=== PATIENT | female | born 1945 | race Caucasian/White ===

== ENCOUNTER 2018-08-21 07:15 | Day surgery (SDC) | payer MEDICARE, BC ==
[~2018-08-21 07:15] MED LIST: Lactated Ringers 1,000 ML IV SCH; Lidocaine 1% PF 2 ML SDV ONE; Lidocaine 1%/Sod Bicarbonate in NS 8.4% 1 ML Syringe IDERM PRN; Midazolam 1 MG/ML 2 ML SDV ONE; Ondansetron 4 MG/2 ML SDV ONE; Propofol 200 MG/20 ML SDV ONE; Sodium Chloride 0.9% 10 ML Syringe FLUSH PRN; ceFAZolin 1 GM Vial ONE; fentaNYL 100 MCG/2 ML SDV ONE
[2018-08-21] MEDS ORDERED: Bupivacaine 0.25% 30 ML SDV ONE (07:52)
[2018-08-21] MEDS ORDERED: Lidocaine 1% 30 ML SDV ONE (07:52)
--- NOTE | 2018-08-21 08:12 | PCM.PREANE ---
Preanesthetic Assessment - Anesthesia/Transfusion/Family Hx Anesthesia History: Prior Anesthesia Without Reaction Family History of Anesthesia Reaction: No Transfusion History: Prior Transfusion Without Reaction Intubation History: Unknown - Review of Systems General: No Symptoms, Fatigue Pulmonary: No Symptoms (COPD/quit smoking in 2007, ETOH: rarely) Cardiovascular: No Symptoms (HTN, CAD), Dyspnea on Exertion, Edema Gastrointestinal: No Symptoms Neurological: Numbness (Diabetic neuropathy: bilateral feet and bilateral hands) Other: Reports: Diabetes (AM blood sugar 107 taken at home.), Thyroid Problems ( Hypothyroid) - Physical Assessment NPO Status Date: 08/20/18 NPO Status Time: 17:00 Pulse: 50 O2 Sat by Pulse Oximetry: 97 Respiratory Rate: 16 Blood Pressure: 120/58 Temperature: 36.4 C Height: 1.55 m Weight: 78.471 kg ASA Class: 3 Mental Status: Alert & Oriented x3 Airway Class: Mallampati = 2 Dentition: Reports: Normal Dentition, Missing Tooth/Teeth, Caries Thyro-Mental Finger Breadths: 3 Mouth Opening Finger Breadths: 3 ROM/Head Extension: Full Lungs: Clear to Auscultation, Normal Respiratory Effort, Decreased Breath Sounds Cardiovascular: Regular Rate, Regular Rhythm, No Murmurs - Lab Values: Laboratory Last Values MRSA (PCR) Negative 08/15/18 15:15 All labs reviewed and noted and within acceptable ranges to proceed with scheduled procedure. - Imaging/EKG Impressions: EKG: SB rate=49 - Allergies Allergies/Adverse Reactions: Allergies Allergy/AdvReac Type Severity Reaction Status Date / Time No Known Allergies Allergy Verified 08/18/18 13:18 - Anesthesia Plan Pre-Op Medication Ordered: Beta Pura Beta Pura: Metoprolol Med Last Dose Date: 08/21/18 Med Last Dose Time: 06:45 - Acknowledgements Anesthesia Type Planned: MAC Pt an Appropriate Candidate for the Planned Anesthesia: Yes Alternatives and Risks of Anesthesia Discussed w Pt/Guardian: Yes Pt/Guardian Understands and Agrees with Anesthesia Plan: Yes PreAnesthesia Questionnaire HEENT History: Reports: Impaired Vision Cardiovascular History: Reports: CAD, High Cholesterol, Hypertension Respiratory History: Reports: COPD Gastrointestinal History: Reports: Chronic Constipation, Colon Polyp, Other ( See Below) Other Gastrointestinal History: colitis, colon wall thickening Genitourinary History: Reports: None 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 Neurological History: Reports: Neuropathy, Diabetic Psychiatric History: Reports: None Endocrine/Metabolic History: Reports: Diabetes, Type II, Hypothyroidism Hematologic History: Reports: None Immunologic History: Reports: None Oncologic (Cancer) History: Reports: None Dermatologic History: Reports: Other (See Below) Other Dermatologic History: edema, right foot ulcer - Past Surgical History Head Surgeries/Procedures: Reports: None HEENT Surgical History: Reports: Cataract Surgery Cardiovascular Surgical History: Reports: None Respiratory Surgical History: Reports: None GI Surgical History: Reports: Colonoscopy, Hernia Repair/Other Female Surgical History: Reports: Hysterectomy Male Surgical History: Reports: None Endocrine Surgical History: Reports: None Neurological Surgical History: Reports: None Musculoskeletal Surgical History: Reports: Other (See Below) Other Musculoskeletal Surgeries/Procedures:: right carpal tunnel syndrome, bilateral hip and knee replacements Oncologic Surgical History: Reports: None - SUBSTANCE USE Smoking Status *Q: Former Smoker Recreational Drug Use History: No - HOME MEDS Home Medications: Home Meds Ascorbic Acid [Vitamin C] 1,000 mg PO DAILY 02/04/14 [History] Irbesartan [Avapro] 300 mg PO DAILY 02/04/14 [History] Levothyroxine Sodium [Synthroid] 75 mcg PO DAILY 02/04/14 [History] Metoprolol Tartrate 100 mg PO BID 02/04/14 [History] atorvaSTATin Calcium [Atorvastatin Calcium] 20 mg PO DAILY 02/04/14 [History] hydroCHLOROthiazide [Hydrochlorothiazide] 12.5 mg PO DAILY 02/04/14 [History] Albuterol Sulfate [Proair Hfa] 2 puff INH Q6H 08/18/18 [History] Cholecalciferol (Vitamin D3) [Vitamin D3] 400 unit PO DAILY 08/18/18 [History] Gabapentin [Neurontin] 400 mg PO TID 08/18/18 [History] Irbesartan 08/18/18 [History] Multivitamin [Zoo Chews] 1 tab PO DAILY 08/18/18 [History] Umeclidinium Brm/Vilanterol Tr [Anoro Ellipta 62.5-25 MCG] 1 puff INH DAILY [History] metFORMIN [Glucophage XR] 500 mg PO BID 08/18/18 [History] Acetaminophen/HYDROcodone [[place] 325-5 MG] 1 - 2 tab PO Q6H PRN #15 tablet 08/21 [Rx] - CURRENT (IN HOUSE) MEDS Current Meds: Current Medications Lactated Ringer's (Ringers, Lactated) 1,000 mls @ 125 mls/hr IV ASDIRECTED JANET Stop: 08/21/18 23:00 Lidocaine/Sodium Bicarbonate (Buffered Lidocaine 1% In Ns 8.4%) 0.25 ml IDERM ONETIME PRN PRN Reason: Prior to IV Start Stop: 08/21/18 18:00 Sodium Chloride (Saline Flush) 10 ml FLUSH ASDIRECTED PRN PRN Reason: Keep Vein Open Stop: 08/21/18 18:00 Discontinued Medications Bupivacaine HCl (Marcaine 0.25%) Confirm Administered Dose 30 ml .ROUTE .STK- MED ONE Stop: 08/21/18 07:53 Cefazolin Sodium (Ancef) Confirm Administered Dose 2 gm .ROUTE .STK-MED ONE Stop: 08/21/18 06:42 Fentanyl (Sublimaze) Confirm Administered Dose 100 mcg .ROUTE .STK-MED ONE Stop: 08/21/18 06:42 Lidocaine HCl (Xylocaine-Mpf 1%) Confirm Administered Dose 6 ml .ROUTE .STK-MED ONE Stop: 08/21/18 06:42 Lidocaine HCl (Xylocaine-Mpf 1%) Confirm Administered Dose 30 ml .ROUTE .STK- MED ONE Stop: 08/21/18 07:53 Midazolam HCl (Versed 1 Mg/Ml) Confirm Administered Dose 2 mg .ROUTE .STK-MED ONE Stop: 08/21/18 06:43 Ondansetron HCl (Zofran) Confirm Administered Dose 4 mg .ROUTE .STK-MED ONE Stop: 08/21/18 06:42 Propofol (Diprivan 20 Ml) Confirm Administered Dose 200 mg .ROUTE .STK-MED ONE Stop: 08/21/18 06:42
[2018-08-21] MEDS ORDERED: HYDROmorphone 0.5 MG/0.5 ML Syringe IVPUSH PRN (10:29)
--- NOTE | 2018-08-21 11:15 | PCM48HPAN ---
Post Anesthesia Note - EVALUATION WITHIN 48HRS OF ANESTHETIC Vital Signs in Normal Range: Yes Patient Participated in Evaluation: Yes Respiratory Function Stable: Yes Airway Patent: Yes Cardiovascular Function Stable: Yes Hydration Status Stable: Yes Pain Control Satisfactory: Yes Nausea and Vomiting Control Satisfactory: Yes Mental Status Recovered: Yes Pulse Rate: 46 SaO2: 100 Resp Rate: 10 Temperature: 36.7 C Blood Pressure: 110/59 Pulse Rate: 46
--- NOTE | 2018-08-22 10:38 | PCM.OPNOTE ---
- General Post-Op/Procedure Note Date of Surgery/Procedure: 08/21/18 Operative Procedure(s): right carpal tunnel release with right second, third and fourth a1 yadira releases Pre Op Diagnosis: right median nerve compression and right second, third and fourth stenosing tenosynovitis Post-Op Diagnosis: Same Anesthesia Technique: Local, MAC Primary Surgeon: Chapito Yousif Anesthesia Provider: Margarita Pérez EBL in mLs: 5 Complications: None Condition: Good
--- NOTE | 2018-08-25 12:14 | OR ---
DATE OF OPERATION: 08/21/2018 SURGEON: Chapito Yousif MD OPERATION PERFORMED: Right carpal tunnel release with right 2nd, 3rd, and 4th A1 yadira releases. 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 ANESTHESIA TECHNIQUE: Local MAC. BRAIDING MACHINE TENDER: None. ANESTHESIA PROVIDER: Margarita Pérez CRNA. ESTIMATED BLOOD LOSS: Less than 5 mL. COMPLICATIONS: None. CONDITION: Stable. DESCRIPTION OF PROCEDURE: The patient was identified in the preop holding area. Proper site was marked and identified by the surgeon. The patient was taken back to the operative theater, where after adequate anesthesia, the patient's right upper extremity was sterilely prepped and draped in usual sterile fashion. OR time-out was performed. The patient received 2 g IV Ancef. At this time, right upper extremity was exsanguinated with an Esmarch and Esmarch was used as a tourniquet on the forearm. At this time, incisional sites were marked out for the carpal tunnel as well as the 2nd, 3rd, and 4th A1 yadira releases, and 1% lidocaine without epinephrine and 0.25% Marcaine without epinephrine were used to anesthetize these incisional sites. Once this was set up, the carpal tunnel was done first, incision was made. This was taken down to palmar cutaneous fascia. Palmar cutaneous fascia was identified and Chinik blade was used to resect the palmar cutaneous fascia. Transverse carpal ligament was identified. A small rent was made in the transverse carpal ligament, and then a tenotomy scissor was used for release of the transverse carpal ligament all the way distally making sure to stop short of palmar arch. At this time, the superficial forearm fascia as well as the transverse carpal ligament was then resected proximally making sure to keep the tips ulnar to protect the palmar cutaneous branch of the median nerve. There was found to be adequate release both proximally and distally at this time starting with the index finger. Incision was made over the A1 yadira. Blunt dissection was taken down to the A1 yadira. Ragnell retractors were then placed on both the radial and ulnar side to protect the neurovascular bundles, and a Chinik blade was then used to resect the A1 yadira. The tendon showed no signs of tenderness or adhesions. At this time, this was then repeated for the 3rd and 4th fingers as well in the similar fashion, and the A1 pulleys were found to be completely released for those fingers as well. None of the tendon show any adhesions. At this time, adequate saline was irrigated through all 4 incisional sites, a 4-0 nylon was used for closure of the skin. The patient was placed in a sterile soft dressing and sent to the PACU in stable condition. ANESTHESIA: MMODAL /[id number]
== END 2018-08-21 11:52 ==
LOC: JD.SDS 07:15
PROVIDERS: ATTEND Orthopaedic Surgery
DX: G56.01 Carpal tunnel syndrome, right upper limb (principal); M65.841 Other synovitis and tenosynovitis, right hand; M65.321 Trigger finger, right index finger; M65.331 Trigger finger, right middle finger; M65.341 Trigger finger, right ring finger; I10 Essential (primary) hypertension; E11.42 Type 2 diabetes mellitus with diabetic polyneuropathy; E11.621 Type 2 diabetes mellitus with foot ulcer; L97.509 Non-pressure chronic ulcer of other part of unspecified foot with unspecified severity; J44.9 Chronic obstructive pulmonary disease, unspecified; E03.9 Hypothyroidism, unspecified; E78.00 Pure hypercholesterolemia, unspecified; M19.90 Unspecified osteoarthritis, unspecified site; Z87.891 Personal history of nicotine dependence; Z79.82 Long term (current) use of aspirin; Z79.84 Long term (current) use of oral hypoglycemic drugs; Z79.899 Other long term (current) drug therapy; Z79.890 Hormone replacement therapy
CPT/HCPCS: 26055; 36415; 64721; 80048; 87641; J0690; J2001; J2405; J2704; J3010; J3490; J7120; 01810; J2250

== ENCOUNTER 2019-11-14 06:03 | Inpatient (IN) | payer MEDICARE, BC ==
[2019-11-14] MEDS ORDERED: Pantoprazole 40 MG Vial IVPUSH ONE (06:51)
--- NOTE | 2019-11-14 07:04 | EDM.PDOC ---
<[place],[employer] - Last Filed: 11/14/19 07:02> ED HPI GENERAL MEDICAL PROBLEM - General Chief Complaint: Gastrointestinal Problem Stated Complaint: BLACK STOOL/DIARRHEA Time Seen by Provider: 11/14/19 06:07 Source of Information: Reports: Patient History Limitations: Reports: No Limitations - History of Present Illness INITIAL COMMENTS - FREE TEXT/NARRATIVE: TRIAGE NOTE -- During the night pt developed black, tarry stools and diarrhea. Denies n/v and abd pain. Does not take any anticoagulants. Dizzy upon standing and SOB. [ End ] Above there is no history of GI bleeding. Onset within the past several hours with melanotic stools. She has not had any symptom of acute medical illness otherwise. No cough no fever no dysuria. No readily identified risk factors. Patient has not taken any medication or tried any other measure to moderate her symptoms. She was on a blood thinner in the past but has not taken 1 in months if not years. - Related Data Allergies Allergy/AdvReac Type Severity Reaction Status Date / Time No Known Allergies Allergy Verified 11/14/19 06:16 Home Meds: Home Meds Ascorbic Acid [Vitamin C] 1,000 mg PO DAILY 02/04/14 [History] Irbesartan [Avapro] 300 mg PO DAILY 02/04/14 [History] Levothyroxine Sodium [Synthroid] 75 mcg PO DAILY 02/04/14 [History] Metoprolol Tartrate 100 mg PO BID 02/04/14 [History] atorvaSTATin Calcium [Atorvastatin Calcium] 20 mg PO DAILY 02/04/14 [History] hydroCHLOROthiazide [Hydrochlorothiazide] 12.5 mg PO DAILY 02/04/14 [History] Albuterol Sulfate [Proair Hfa] 2 puff INH Q6H 08/18/18 [History] Cholecalciferol (Vitamin D3) [Vitamin D3] 400 unit PO DAILY 08/18/18 [History] Gabapentin [Neurontin] 400 mg PO TID 08/18/18 [History] Multivitamin [Zoo Chews] 1 tab PO DAILY 08/18/18 [History] Umeclidinium Brm/Vilanterol Tr [Anoro Ellipta 62.5-25 MCG] 1 puff INH DAILY [History] metFORMIN [Glucophage XR] 500 mg PO BID 08/18/18 [History] amLODIPine [Norvasc] 5 mg PO BID 11/14/19 [History] traMADol [Ultram] 50 mg PO TID 11/14/19 [History] Past Medical History HEENT History: Reports: Impaired Vision Cardiovascular History: Reports: CAD, High Cholesterol, Hypertension Respiratory History: Reports: COPD Gastrointestinal History: Reports: Chronic Constipation, Colon Polyp, Other ( See Below) Other Gastrointestinal History: colitis, colon wall thickening Genitourinary History: Reports: None SKID MAN History: Reports: None Neurological History: Reports: Neuropathy, Diabetic Psychiatric History: Reports: None Endocrine/Metabolic History: Reports: Diabetes, Type II, Hypothyroidism Hematologic History: Reports: None Immunologic History: Reports: None Oncologic (Cancer) History: Reports: None Dermatologic History: Reports: Other (See Below) Other Dermatologic History: edema, right foot ulcer - Past Surgical History Head Surgeries/Procedures: Reports: None HEENT Surgical History: Reports: Cataract Surgery Cardiovascular Surgical History: Reports: None Respiratory Surgical History: Reports: None GI Surgical History: Reports: Colonoscopy, Hernia Repair/Other Female Surgical History: Reports: Hysterectomy Endocrine Surgical History: Reports: None Neurological Surgical History: Reports: None Musculoskeletal Surgical History: Reports: Other (See Below) Other Musculoskeletal Surgeries/Procedures:: right carpal tunnel syndrome, bilateral hip and knee replacements Oncologic Surgical History: Reports: None Social & Family History - Tobacco Use Smoking Status *Q: Former Smoker Used Tobacco, but Quit: Yes Month/Year Tobacco Last Used: 2007 - Caffeine Use Caffeine Use: Reports: Coffee - Recreational Drug Use Recreational Drug Use: No ED ROS GENERAL - Review of Systems Review Of Systems: Comprehensive ROS is negative, except as noted in HPI. ED EXAM, GI/ABD - Physical Exam Exam: See Below Exam Limited By: No Limitations General Appearance: Alert, WD/WN, No Apparent Distress Eyes: Bilateral: EOMI Ears: Normal External Exam Nose: Normal Inspection Throat/Mouth: Normal Inspection Head: Atraumatic, Normocephalic Neck: Normal Inspection, Supple Respiratory/Chest: No Respiratory Distress, Lungs Clear, Normal Breath Sounds Cardiovascular: Regular Rate, Rhythm GI/Abdominal Exam: Soft, Non-Tender Rectal (Female) Exam: Heme + Stool Back Exam: Normal Inspection Extremities: Normal Inspection, Non-Tender Neurological: Alert, Oriented, Normal Cognition, No Motor/Sensory Deficits Psychiatric: Normal Affect, Normal Mood Skin Exam: Warm, Dry Course - Vital Signs Last Recorded V/S: Last Vital Signs Temp 36.1 C 11/14/19 06:13 Pulse 89 11/14/19 06:13 Resp 18 11/14/19 06:13 BP 122/73 11/14/19 06:13 Pulse Ox 99 11/14/19 06:13 Orthostatic Blood Pressure [ 100/80 Standing] Orthostatic Blood Pressure [ 103/63 Sitting] Orthostatic Blood Pressure [ 130/60 Supine] - Orders/Labs/Meds Orders: Active Orders 24 hr Category Date Time Status Admission Status [Patient Status] [ADT] Routine ADT 11/14/19 10:01 Ordered EKG Documentation Completion [RC] STAT Care 11/14/19 08:36 Active Hemoccult [Fecal Occult Blood Collection] [RC] Care 11/14/19 06:37 Active ASDIRECTED Orthostatic Vital Signs [RC] ASDIRECTED Care 11/14/19 07:55 Active CULTURE BLOOD [BC] Stat Lab 11/14/19 07:17 Received CULTURE BLOOD [BC] Stat Lab 11/14/19 07:23 Received CULTURE STOOL + SHIGATOX [RM] Stat Lab 11/14/19 07:53 Ordered OCCULT BLOOD DIAGNOSTIC [OP] Stat Lab 11/14/19 06:37 Ordered PATIENT RETYPE [BBK] Routine Lab 11/14/19 08:11 Ordered UA RFX GRACIELA AND CULT IF INDIC [URIN] Stat Lab 11/14/19 07:00 Ordered WBC, STOOL [OP] Stat Lab 11/14/19 07:53 Ordered Pantoprazole [ProTONIX IV] 80 mg Med 11/14/19 08:30 Active Sodium Chloride 0.9% [Normal Saline] 100 ml IV Q10H Sodium Chloride 0.9% [Normal Saline] 1,000 ml Med 11/14/19 08:30 Active IV ASDIRECTED Blood Culture x2 Reflex Set [OM.PC] Stat Oth 11/14/19 07:00 Ordered Medication Orders Pantoprazole Sodium 80 mg/ (Sodium Chloride) 100 mls @ 10 mls/hr IV Q10H JANET Last Admin: 11/14/19 08:56 Dose: 10 mls/hr Sodium Chloride (Normal Saline) 1,000 mls @ 150 mls/hr IV ASDIRECTED JANET Last Admin: 11/14/19 08:55 Dose: 150 mls/hr Labs: Laboratory Tests 11/14/19 11/14/19 11/14/19 Range/Units 06:30 06:30 06:30 WBC 21.08 H (3.98-10.04) K/mm3 RBC 3.60 L (3.98-5.22) M/mm3 Hgb 10.5 L D (11.2-15.7) gm/dl Hct 31.8 L (34.1-44.9) % MCV 88.3 (79.4-94.8) fl MCH 29.2 (25.6-32.2) pg MCHC 33.0 (32.2-35.5) g/dl RDW Std Deviation 41.1 (36.4-46.3) fL Plt Count 378 H D (182-369) K/mm3 MPV 10.7 (9.4-12.3) fl Neutrophils % (Manual) 83 H (40-60) % Band Neutrophils % 0 (0-10) % Lymphocytes % (Manual) 13 L (20-40) % Atypical Lymphs % 0 % Monocytes % (Manual) 4 (2-10) % Eosinophils % (Manual) 0 L (0.7-5.8) % Basophils % (Manual) 0 L (0.1-1.2) Platelet Estimate Adequate RBC Morph Comment Normal PT 11.1 (9.7-12.0) SECONDS INR 1.02 APTT 21 L (22-31) SECONDS Sodium 137 (136-145) mEq/L Potassium 4.2 (3.5-5.1) mEq/L Chloride 101 (98-107) mEq/L Carbon Dioxide 21 (21-32) mEq/L Anion Gap 19.2 H (5-15) BUN 74 H D (7-18) mg/dL Creatinine 1.3 H (0.55-1.02) mg/dL Est Cr Clr Drug Dosing 28.21 mL/min Estimated GFR (MDRD) 40 (>60) mL/min BUN/Creatinine Ratio 56.9 H (14-18) Glucose 198 H (83-115) mg/dL Calcium 9.7 (8.5-10.1) mg/dL Magnesium (1.8-2.4) mg/dl Total Bilirubin 0.6 (0.2-1.0) mg/dL AST 15 (15-37) U/L ALT 27 (14-59) U/L Alkaline Phosphatase 45 L (46-116) U/L NT-Pro-B Natriuret Pep (0-450) pg/mL Total Protein 6.7 (6.4-8.2) g/dl Albumin 3.6 (3.4-5.0) g/dl Globulin 3.1 gm/dL Albumin/Globulin Ratio 1.2 (1-2) TSH 3rd Generation (0.358-3.74) uIU/mL Ketones (0.0-0.3) mM Blood Type Gel Antibody Screen 11/14/19 11/14/19 11/14/19 Range/Units 06:30 06:30 06:30 WBC (3.98-10.04) K/mm3 RBC (3.98-5.22) M/mm3 Hgb (11.2-15.7) gm/dl Hct (34.1-44.9) % MCV (79.4-94.8) fl MCH (25.6-32.2) pg MCHC (32.2-35.5) g/dl RDW Std Deviation (36.4-46.3) fL Plt Count (182-369) K/mm3 MPV (9.4-12.3) fl Neutrophils % (Manual) (40-60) % Band Neutrophils % (0-10) % Lymphocytes % (Manual) (20-40) % Atypical Lymphs % % Monocytes % (Manual) (2-10) % Eosinophils % (Manual) (0.7-5.8) % Basophils % (Manual) (0.1-1.2) Platelet Estimate RBC Morph Comment PT (9.7-12.0) SECONDS INR APTT (22-31) SECONDS Sodium (136-145) mEq/L Potassium (3.5-5.1) mEq/L Chloride (98-107) mEq/L Carbon Dioxide (21-32) mEq/L Anion Gap (5-15) BUN (7-18) mg/dL Creatinine (0.55-1.02) mg/dL Est Cr Clr Drug Dosing mL/min Estimated GFR (MDRD) (>60) mL/min BUN/Creatinine Ratio (14-18) Glucose (83-115) mg/dL Calcium (8.5-10.1) mg/dL Magnesium 1.7 L (1.8-2.4) mg/dl Total Bilirubin (0.2-1.0) mg/dL AST (15-37) U/L ALT (14-59) U/L Alkaline Phosphatase (46-116) U/L NT-Pro-B Natriuret Pep (0-450) pg/mL Total Protein (6.4-8.2) g/dl Albumin (3.4-5.0) g/dl Globulin gm/dL Albumin/Globulin Ratio (1-2) TSH 3rd Generation 0.644 (0.358-3.74) uIU/mL Ketones (0.0-0.3) mM Blood Type O POSITIVE Gel Antibody Screen Negative 11/14/19 11/14/19 Range/Units 06:30 06:30 WBC (3.98-10.04) K/mm3 RBC (3.98-5.22) M/mm3 Hgb (11.2-15.7) gm/dl Hct (34.1-44.9) % MCV (79.4-94.8) fl MCH (25.6-32.2) pg MCHC (32.2-35.5) g/dl RDW Std Deviation (36.4-46.3) fL Plt Count (182-369) K/mm3 MPV (9.4-12.3) fl Neutrophils % (Manual) (40-60) % Band Neutrophils % (0-10) % Lymphocytes % (Manual) (20-40) % Atypical Lymphs % % Monocytes % (Manual) (2-10) % Eosinophils % (Manual) (0.7-5.8) % Basophils % (Manual) (0.1-1.2) Platelet Estimate RBC Morph Comment PT (9.7-12.0) SECONDS INR APTT (22-31) SECONDS Sodium (136-145) mEq/L Potassium (3.5-5.1) mEq/L Chloride (98-107) mEq/L Carbon Dioxide (21-32) mEq/L Anion Gap (5-15) BUN (7-18) mg/dL Creatinine (0.55-1.02) mg/dL Est Cr Clr Drug Dosing mL/min Estimated GFR (MDRD) (>60) mL/min BUN/Creatinine Ratio (14-18) Glucose (83-115) mg/dL Calcium (8.5-10.1) mg/dL Magnesium (1.8-2.4) mg/dl Total Bilirubin (0.2-1.0) mg/dL AST (15-37) U/L ALT (14-59) U/L Alkaline Phosphatase (46-116) U/L NT-Pro-B Natriuret Pep 549 H (0-450) pg/mL Total Protein (6.4-8.2) g/dl Albumin (3.4-5.0) g/dl Globulin gm/dL Albumin/Globulin Ratio (1-2) TSH 3rd Generation (0.358-3.74) uIU/mL Ketones 0.73 (0.0-0.3) mM Blood Type Gel Antibody Screen Meds: Medications Generic Name Dose Route Start Last Admin Trade Name Freq PRN Reason Stop Dose Admin Pantoprazole Sodium 80 mg/ 100 mls @ 10 mls/hr 11/14/19 08:30 11/14/19 08:56 Sodium Chloride IV 10 mls/hr Q10H JANET Administration Sodium Chloride 1,000 mls @ 150 mls/hr 11/14/19 08:30 11/14/19 08:55 Normal Saline IV 150 mls/hr ASDIRECTED JANET Administration Discontinued Medications Generic Name Dose Route Start Last Admin Trade Name Freq PRN Reason Stop Dose Admin Pantoprazole Sodium 80 mg 11/14/19 06:51 11/14/19 07:00 Protonix Iv IVPUSH 11/14/19 06:52 80 mg BOLUS ONE Administration Departure - Departure Disposition: Admitted As Inpatient 65 Clinical Impression: Gastrointestinal hemorrhage Qualifiers: GI bleed type/associated pathology: unspecified gastrointestinal hemorrhage type Qualified Code(s): K92.2 - Gastrointestinal hemorrhage, unspecified Congestive heart failure Qualifiers: Heart failure type: diastolic Heart failure chronicity: acute on chronic Qualified Code(s): I50.33 - Acute on chronic diastolic (congestive) heart failure - Discharge Information Referrals: Nasim Melton MD [Primary Care Provider] - Forms: ED Department Discharge Sepsis Event Note (ED) - Evaluation Sepsis Screening Result: No Definite Risk - Focused Exam Vital Signs: Vital Signs Temp Pulse Resp BP Pulse Ox 11/14/19 06:13 36.1 C 89 18 122/73 99 - My Orders Last 24 Hours: My Active Orders 11/14/19 07:53 CULTURE STOOL + SHIGATOX [RM] Stat WBC, STOOL [OP] Stat 11/14/19 07:55 Orthostatic Vital Signs [RC] ASDIRECTED 11/14/19 08:30 Pantoprazole [ProTONIX IV] 80 mg Sodium Chloride 0.9% [Normal Saline] 100 ml IV Q10H Sodium Chloride 0.9% [Normal Saline] 1,000 ml IV ASDIRECTED 11/14/19 08:36 EKG Documentation Completion [RC] STAT 11/14/19 10:01 Admission Status [Patient Status] [ADT] Routine - Assessment/Plan Last 24 Hours: My Active Orders 11/14/19 07:53 CULTURE STOOL + SHIGATOX [RM] Stat WBC, STOOL [OP] Stat 11/14/19 07:55 Orthostatic Vital Signs [RC] ASDIRECTED 11/14/19 08:30 Pantoprazole [ProTONIX IV] 80 mg Sodium Chloride 0.9% [Normal Saline] 100 ml IV Q10H Sodium Chloride 0.9% [Normal Saline] 1,000 ml IV ASDIRECTED 11/14/19 08:36 EKG Documentation Completion [RC] STAT 11/14/19 10:01 Admission Status [Patient Status] [ADT] Routine <Dominic Ramsey - Last Filed: 11/14/19 10:03> ED HPI GENERAL MEDICAL PROBLEM - History of Present Illness Onset: Today Duration: Hour(s):, Waxing/Waning Location: Reports: Abdomen Quality: Reports: Ache Severity: Moderate Improves with: Reports: None Worsens with: Reports: None Context: Denies: Activity, Exercise, Lifting, Sick Contact, Trauma, Other Associated Symptoms: Reports: Malaise, Other. 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 Her hips are good.) Endocrine/Metabolic History: Reports: Diabetes, Type II Social & Family History - Living Situation & Occupation Living situation: Reports: Occupation: Retired ED ROS GENERAL - Review of Systems Constitutional: Reports: Malaise, Weakness, Fatigue. Denies: Fever, Chills HEENT: Reports: No Symptoms Respiratory: Reports: No Symptoms Cardiovascular: Reports: Blood Pressure Problem Endocrine: Reports: Fatigue GI/Abdominal: Reports: Diarrhea. Denies: Abdominal Pain, Decreased Appetite : Reports: Frequency, Incontinence Musculoskeletal: Reports: Back Pain, Joint Pain Skin: Reports: No Symptoms Neurological: Reports: Dizziness Psychiatric: Reports: No Symptoms Hematologic/Lymphatic: Reports: No Symptoms Immunologic: Reports: No Symptoms EKG INTERPRETATION EKG Date: 11/14/19 Time: 08:49 Rhythm: NSR Rate (Beats/Min): 94 [place]: Normal P-Wave: Present QRS: Other (Decreased voltage in both the limb and precordial leads. Early R wave transition V2 consider right ventricular appear to be pattern.) ST-T: Other (T wave flattening in leads I and aVL which is nonspecific.) QT: Prolonged (QTC is markedly prolonged at 533.) EKG Interpretation Comments: Abnormal ECG Course - Radiology Interpretation Free Text/Narrative:: 74-year-old female presents to the ED with a history of developing dark black tarry stools during the night. She estimates that she is gone 3-4 times. Unsure what time she woke up this morning but is after midnight the first time she had black tarry stools. She had a large blowout black tarry stool in the ED. She did feel quite lightheaded dizzy and short of breath in route to the hospital. This morning. She has no history of dyspepsia or discomfort in the epigastrium. No previous history of peptic ulcer disease. She suggest she takes 2 Aleve and a baby aspirin every morning and usually Aleve p.m. at bedtime to help sleep. Therefore her current upper GI bleed appears to be likely due to be NSAID induced. Dr. Hicks had started her on Protonix 80 mg IV bolus but no drip. She will be placed on Protonix drip at 10 mils per hour. She has no reason not to take a blood transfusion if she needs it. Clinically her blepharal margins are very pallid and I suspect her hemoglobin is going to be 9 or less. IV will be normal saline at 100 mils per hour. Current BP was 104/82. She usually states is 120/65 - Re-Assessments/Exams Free Text/Narrative Re-Assessment/Exam: 11/14/19 08:29 there was of assumed from Dr. Hicks at change of shift. I personally reviewed the patient's history with her and completed a physical examination. Labs reveal a markedly elevated white count at 21.08 which appears to be a stress response. It is unclear whether or not the patient could have occult CLL but her differential shows 83% neutrophils and no bands. Hemoglobin is low at 10.5 hematocrit is 31.8. MCV is 88.3. Platelet count 378, 000. PT is 11.1 with a INR of 1.02. PTT is 21. Sodium 137 with a potassium of 4.2. Chloride is 1 1 with a bicarb of 21. Anion gap is markedly elevated at 19.2. BUN is markedly elevated at 74 compatible with an upper GI bleed. Creatinine is 1.3 with a GFR 40 a stage III chronic kidney disease. Glucose is 198. Calcium is 9.7 with a normal liver function study. Total protein is 6.7 with an albumin fraction of 3.6. TSH is 0.644. Sent will be obtained for blood transfusion. She is going to drift downwards over the next 24 hours even if she has no further active bleeding. 11/14/19 09:[address] Richey and he is excepted care on the hospitalist service. Is asked me to discuss the case with Dr. Coombs on-call surgeon to see if he would be able to perform an EGD on her today to identify where she may be bleeding from. I have put a call into them but I believe he is in the operating at this time. 11/14/19 09:59 Ketones came back at 0.73. This is mildly elevated. BNP came back at 549. I did try to contact Dr. Coombs but I believe he is in the OR. He has not yet called me back. I will have the patient admitted to the med surgery floor in the interim and he can see her on the floor with regards to a consult for EGD. Departure - Departure Time of Disposition: 10:00 Condition: Fair - Discharge Information *PRESCRIPTION DRUG MONITORING PROGRAM REVIEWED*: Not Applicable *COPY OF PRESCRIPTION DRUG MONITORING REPORT IN PATIENT [place]: Not Applicable
[2019-11-14] MEDS ORDERED: Sodium Chloride 0.9% 1,000 ML IV SCH ×3 (08:30→21:45)
[2019-11-14] MEDS: Pantoprazole 80 MG in Sodium Chloride 0.9% 100 ML IV SCH ×2 (08:56→21:18)
[2019-11-14] MEDS ORDERED: Ondansetron 4 MG/2 ML SDV IV PRN (12:05)
[2019-11-14] MEDS ORDERED: Albuterol 0.083% 2.5 MG/3 ML Neb Soln NEB PRN (12:05)
[2019-11-14] MEDS ORDERED: 50% Dextrose in Water 50 ML Syringe IVPUSH PRN (12:11)
--- NOTE | 2019-11-14 12:11 | PCM.HP.2 ---
H&P History of Present Illness - General Date of Service: 11/14/19 Admit Problem/Dx: Admission Diagnosis/Problem Admission Diagnosis/Problem Gastrointestinal hemorrhage - History of Present Illness Initial Comments - Free Text/Narative: 34-year-old female who has a history of COPD and coronary artery disease presents to the emergency department with melanotic stools. She states that last night she vomited blood and then throughout the night and morning she had black stools. She states that this morning she filled the toilet with black stools. Patient did complain of being lightheaded and dizzy. She states in the melanite she was very short of breath. She denies any chest pain, orthopnea , PND, abdominal pain, or history of peptic ulcer disease. Patient does take 2 Aleve in the morning and 1 Aleve p.m. at night. She also takes a baby aspirin in the morning. Initial blood pressure was 122/73, but I did decrease to blood pressure of 104. Orthostatics were positive. Patient was started on IV fluids and had type and screen done. Protonix 80 mg IV push and then IV drip was started. Initial hemoglobin was 10.5, platelets 378, INR 1.02, APTT 20 weeks 1. Electrolytes were normal, but anion gap was elevated at 19.2. BUN was elevated at 74 and creatinine of 1.3 with estimated GFR of 40. Unknown what her baseline is but this looks to be close to baseline. Ketones were 0.73 and BNP was slightly elevated at 549. Patient was then transferred to the ICU. - Related Data Allergies/Adverse Reactions: Allergies Allergy/AdvReac Type Severity Reaction Status Date / Time No Known Allergies Allergy Verified 11/14/19 06:16 Home Medications: Home Meds Ascorbic Acid [Vitamin C] 1,000 mg PO DAILY 02/04/14 [History] Irbesartan [Avapro] 300 mg PO BEDTIME 02/04/14 [History] Levothyroxine Sodium [Synthroid] 75 mcg PO ACBREAKFAST 02/04/14 [History] Metoprolol Tartrate 100 mg PO BID 02/04/14 [History] atorvaSTATin Calcium [Atorvastatin Calcium] 20 mg PO BEDTIME 02/04/14 [History] hydroCHLOROthiazide [Hydrochlorothiazide] 12.5 mg PO DAILY 02/04/14 [History] Albuterol Sulfate [Proair Hfa] 2 puff INH Q6H 03/15/19 [History] Cholecalciferol (Vitamin D3) [Vitamin D3] 400 unit PO DAILY 08/18/18 [History] Gabapentin [Neurontin] 400 mg PO TID 08/18/18 [History] Multivitamin [Zoo Chews] 1 tab PO DAILY 08/18/18 [History] Umeclidinium Brm/Vilanterol Tr [Anoro Ellipta 62.5-25 MCG] 1 puff INH DAILY [History] metFORMIN [Glucophage XR] 500 mg PO BID 08/18/18 [History] amLODIPine [Norvasc] 5 mg PO BID 11/14/19 [History] traMADol [Ultram] 50 mg PO TID 11/14/19 [History] Past Medical History HEENT History: Reports: Impaired Vision Cardiovascular History: Reports: CAD, High Cholesterol, Hypertension Respiratory History: Reports: COPD Gastrointestinal History: Reports: Chronic Constipation, Colon Polyp, Other ( See Below) Other Gastrointestinal History: colitis, colon wall thickening Genitourinary History: Reports: None CAGE CLERK History: Reports: None Musculoskeletal History: Reports: Back Pain, Chronic, Neck Pain, Chronic, Osteoarthritis, Other (See Below) Neurological History: Reports: Neuropathy, Diabetic Psychiatric History: Reports: None Endocrine/Metabolic History: Reports: Diabetes, Type II, Hypothyroidism Hematologic History: Reports: None Immunologic History: Reports: None Oncologic (Cancer) History: Reports: None Dermatologic History: Reports: Other (See Below) Other Dermatologic History: edema, right foot ulcer - Past Surgical History Head Surgeries/Procedures: Reports: None HEENT Surgical History: Reports: Cataract Surgery Cardiovascular Surgical History: Reports: None Respiratory Surgical History: Reports: None GI Surgical History: Reports: Colonoscopy, Hernia Repair/Other Female Surgical History: Reports: Hysterectomy Neurological Surgical History: Reports: None Other Musculoskeletal Surgeries/Procedures:: right carpal tunnel syndrome, bilateral hip and knee replacements Oncologic Surgical History: Reports: None Social & Family History - Family History Family Medical History: Noncontributory - Tobacco Use Smoking Status *Q: Former Smoker Used Tobacco, but Quit: Yes Month/Year Tobacco Last Used: 2007 Tobacco Use Comment: 20 years of smoking hx - Caffeine Use Caffeine Use: Reports: Coffee - Recreational Drug Use Recreational Drug Use: No - Living Situation & Occupation Living situation: Reports: Occupation: Retired H&P Review of Systems - Review of Systems: Review Of Systems: Comprehensive ROS is negative, except as noted in HPI. Exam - Exam Exam: See Below - Vital Signs Vital Signs: Last Vital Signs Temp 98.1 F 11/14/19 12:07 Pulse 89 11/14/19 06:13 Resp 14 11/14/19 12:07 BP 135/60 11/14/19 12:07 Pulse Ox 100 11/14/19 12:07 Orthostatic Blood Pressure [ 100/80 Standing] Orthostatic Blood Pressure [ 103/63 Sitting] Orthostatic Blood Pressure [ 130/60 Supine] Weight: 163 lb - Exam Quality Assessment: No: Supplemental Oxygen General: Alert, Oriented, 4 HEENT: Conjunctiva Clear, Hearing Intact, Mucosa Moist & [place] Neck: Supple, Trachea Midline, 2 Lungs: Normal Respiratory Effort, Crackles (Mild bibasilar) Cardiovascular: Regular Rhythm, Normal S1, Normal S2, Tachycardia GI/Abdominal Exam: Normal Bowel Sounds, Soft, Non-Tender, No Organomegaly, No Distention, No Abnormal Bruit Back Exam: Normal Inspection Extremities: Normal Inspection, Normal Range of Motion, Non-Tender, No Pedal Edema, Normal Capillary Refill Peripheral Pulses: 2+: Popliteal (R), Posterior Tibial (L), Posterior Tibial (R) , Dorsalis Pedis (L), Dorsalis Pedis (R) Skin: Warm, Dry, Intact Neurological: Cranial Nerves Intact Neuro Extensive - Mental Status: Alert, Oriented x3, Normal Mood/Affect, Normal Cognition, Memory Intact Neuro Extensive - Motor, Sensory, Reflexes: CN II-XII Intact Psychiatric: Alert, Normal Affect, Normal Mood - Patient Data Lab Results Last 24 hrs: Laboratory Results - last 24 hr 11/14/19 11/14/19 11/14/19 Range/Units 06:30 06:30 06:30 WBC 21.08 H (3.98-10.04) K/mm3 RBC 3.60 L (3.98-5.22) M/mm3 Hgb 10.5 L D (11.2-15.7) gm/dl Hct 31.8 L (34.1-44.9) % MCV 88.3 (79.4-94.8) fl MCH 29.2 (25.6-32.2) pg MCHC 33.0 (32.2-35.5) g/dl RDW Std Deviation 41.1 (36.4-46.3) fL Plt Count 378 H D (182-369) K/mm3 MPV 10.7 (9.4-12.3) fl Neutrophils % (Manual) 83 H (40-60) % Band Neutrophils % 0 (0-10) % Lymphocytes % (Manual) 13 L (20-40) % Atypical Lymphs % 0 % Monocytes % (Manual) 4 (2-10) % Eosinophils % (Manual) 0 L (0.7-5.8) % Basophils % (Manual) 0 L (0.1-1.2) Platelet Estimate Adequate RBC Morph Comment Normal PT 11.1 (9.7-12.0) SECONDS INR 1.02 APTT 21 L (22-31) SECONDS Sodium 137 (136-145) mEq/L Potassium 4.2 (3.5-5.1) mEq/L Chloride 101 (98-107) mEq/L Carbon Dioxide 21 (21-32) mEq/L Anion Gap 19.2 H (5-15) BUN 74 H D (7-18) mg/dL Creatinine 1.3 H (0.55-1.02) mg/dL Est Cr Clr Drug Dosing 28.21 mL/min Estimated GFR (MDRD) 40 (>60) mL/min BUN/Creatinine Ratio 56.9 H (14-18) Glucose 198 H (83-115) mg/dL Calcium 9.7 (8.5-10.1) mg/dL Magnesium (1.8-2.4) mg/dl Total Bilirubin 0.6 (0.2-1.0) mg/dL AST 15 (15-37) U/L ALT 27 (14-59) U/L Alkaline Phosphatase 45 L (46-116) U/L NT-Pro-B Natriuret Pep (0-450) pg/mL Total Protein 6.7 (6.4-8.2) g/dl Albumin 3.6 (3.4-5.0) g/dl Globulin 3.1 gm/dL Albumin/Globulin Ratio 1.2 (1-2) TSH 3rd Generation (0.358-3.74) uIU/mL Ketones (0.0-0.3) mM Blood Type Gel Antibody Screen 11/14/19 11/14/19 11/14/19 Range/Units 06:30 06:30 06:30 WBC (3.98-10.04) K/mm3 RBC (3.98-5.22) M/mm3 Hgb (11.2-15.7) gm/dl Hct (34.1-44.9) % MCV (79.4-94.8) fl MCH (25.6-32.2) pg MCHC (32.2-35.5) g/dl RDW Std Deviation (36.4-46.3) fL Plt Count (182-369) K/mm3 MPV (9.4-12.3) fl Neutrophils % (Manual) (40-60) % Band Neutrophils % (0-10) % Lymphocytes % (Manual) (20-40) % Atypical Lymphs % % Monocytes % (Manual) (2-10) % Eosinophils % (Manual) (0.7-5.8) % Basophils % (Manual) (0.1-1.2) Platelet Estimate RBC Morph Comment PT (9.7-12.0) SECONDS INR APTT (22-31) SECONDS Sodium (136-145) mEq/L Potassium (3.5-5.1) mEq/L Chloride (98-107) mEq/L Carbon Dioxide (21-32) mEq/L Anion Gap (5-15) BUN (7-18) mg/dL Creatinine (0.55-1.02) mg/dL Est Cr Clr Drug Dosing mL/min Estimated GFR (MDRD) (>60) mL/min BUN/Creatinine Ratio (14-18) Glucose (83-115) mg/dL Calcium (8.5-10.1) mg/dL Magnesium 1.7 L (1.8-2.4) mg/dl Total Bilirubin (0.2-1.0) mg/dL AST (15-37) U/L ALT (14-59) U/L Alkaline Phosphatase (46-116) U/L NT-Pro-B Natriuret Pep (0-450) pg/mL Total Protein (6.4-8.2) g/dl Albumin (3.4-5.0) g/dl Globulin gm/dL Albumin/Globulin Ratio (1-2) TSH 3rd Generation 0.644 (0.358-3.74) uIU/mL Ketones (0.0-0.3) mM Blood Type O POSITIVE Gel Antibody Screen Negative 11/14/19 11/14/19 Range/Units 06:30 06:30 WBC (3.98-10.04) K/mm3 RBC (3.98-5.22) M/mm3 Hgb (11.2-15.7) gm/dl Hct (34.1-44.9) % MCV (79.4-94.8) fl MCH (25.6-32.2) pg MCHC (32.2-35.5) g/dl RDW Std Deviation (36.4-46.3) fL Plt Count (182-369) K/mm3 MPV (9.4-12.3) fl Neutrophils % (Manual) (40-60) % Band Neutrophils % (0-10) % Lymphocytes % (Manual) (20-40) % Atypical Lymphs % % Monocytes % (Manual) (2-10) % Eosinophils % (Manual) (0.7-5.8) % Basophils % (Manual) (0.1-1.2) Platelet Estimate RBC Morph Comment PT (9.7-12.0) SECONDS INR APTT (22-31) SECONDS Sodium (136-145) mEq/L Potassium (3.5-5.1) mEq/L Chloride (98-107) mEq/L Carbon Dioxide (21-32) mEq/L Anion Gap (5-15) BUN (7-18) mg/dL Creatinine (0.55-1.02) mg/dL Est Cr Clr Drug Dosing mL/min Estimated GFR (MDRD) (>60) mL/min BUN/Creatinine Ratio (14-18) Glucose (83-115) mg/dL Calcium (8.5-10.1) mg/dL Magnesium (1.8-2.4) mg/dl Total Bilirubin (0.2-1.0) mg/dL AST (15-37) U/L ALT (14-59) U/L Alkaline Phosphatase (46-116) U/L NT-Pro-B Natriuret Pep 549 H (0-450) pg/mL Total Protein (6.4-8.2) g/dl Albumin (3.4-5.0) g/dl Globulin gm/dL Albumin/Globulin Ratio (1-2) TSH 3rd Generation (0.358-3.74) uIU/mL Ketones 0.73 (0.0-0.3) mM Blood Type Gel Antibody Screen Result Diagrams: 11/14/19 12:03 11/14/19 06:30 EKG INTERPRETATION EKG Date: 11/14/19 Rate (Beats/Min): 94 [place]: Normal P-Wave: Present QRS: Other (Early transition of R wave.) ST-T: Other (Nonspecific flattening T wave in lead I and aVL) QT: Prolonged (533) Sepsis Event Note - Evaluation Sepsis Screening Result: No Definite Risk - Focused Exam Vital Signs: Vital Signs Temp Pulse Resp BP Pulse Ox 11/14/19 12:07 98.1 F 14 135/60 100 11/14/19 11:00 97.8 F 15 125/77 99 11/14/19 06:13 96.9 F 89 18 122/73 99 Date Exam was Performed: 11/14/19 Time Exam was Performed: 12:54 - Problem List (1) Prolonged Q-T interval on ECG SNOMED Code(s): 245252106 ICD Code: R94.31 - ABNORMAL ELECTROCARDIOGRAM [ECG] [EKG] Status: Acute Current Visit: Yes (2) Congestive heart failure SNOMED Code(s): 64028801 ICD Code: I50.9 - HEART FAILURE, UNSPECIFIED Status: Acute Current Visit : Yes Qualifiers: Heart failure type: diastolic Heart failure chronicity: acute on chronic Qualified Code(s): I50.33 - Acute on chronic diastolic (congestive) heart failure (3) Gastrointestinal hemorrhage SNOMED Code(s): 32128747 ICD Code: K92.2 - GASTROINTESTINAL HEMORRHAGE, UNSPECIFIED Status: Acute Current Visit: Yes Qualifiers: GI bleed type/associated pathology: unspecified gastrointestinal hemorrhage type Qualified Code(s): K92.2 - Gastrointestinal hemorrhage, unspecified Problem List Initiated/Reviewed/Updated: Yes Orders Last 24hrs: Active Orders 24 hr Category Date Time Status Admission Status [Patient Status] [ADT] Routine ADT 11/14/19 10:01 Active Antiembolic Devices [RC] PER UNIT ROUTINE Care 11/14/19 12:07 Ordered Hemoccult [Fecal Occult Blood Collection] [RC] Care 11/14/19 06:37 Active ASDIRECTED Intake and Output Strict [RC] ASDIRECTED Care 11/14/19 12:05 Ordered Notify Provider Consults [RC] ASDIRECTED Care 11/14/19 12:03 Ordered Orthostatic Vital Signs [RC] ASDIRECTED Care 11/14/19 07:55 Active Oxygen Therapy [RC] PRN Care 11/14/19 12:05 Ordered RT Aerosol Therapy [RC] ASDIRECTED Care 11/14/19 12:07 Ordered Up With Assistance [RC] ASDIRECTED Care 11/14/19 12:05 Ordered VTE/DVT Education [RC] PER UNIT ROUTINE Care 11/14/19 12:05 Ordered Vital Signs [RC] Q4H Care 11/14/19 12:05 Ordered Consult to Physician [CONS] Routine Cons 11/14/19 12:03 Ordered Nothing per Oral Now Diet [DIET] Diet 11/14/19 Lunch Ordered CBC WITH AUTO DIFF [HEME] AM Lab 11/15/19 05:11 Ordered COMPREHENSIVE METABOLIC PN,CMP [CHEM] AM Lab 11/15/19 05:11 Ordered CULTURE BLOOD [BC] Stat Lab 11/14/19 07:17 Received CULTURE BLOOD [BC] Stat Lab 11/14/19 07:23 Received CULTURE STOOL + SHIGATOX [RM] Stat Lab 11/14/19 07:53 Ordered HEMOGLOBIN/HEMATOCRIT,HH [HEME] Stat Lab 11/14/19 11:50 Ordered MAGNESIUM [CHEM] AM Lab 11/15/19 05:11 Ordered OCCULT BLOOD DIAGNOSTIC [OP] Stat Lab 11/14/19 06:37 Ordered PATIENT RETYPE [BBK] Routine Lab 11/14/19 08:11 Ordered PHOSPHORUS [CHEM] AM Lab 11/15/19 05:11 Ordered UA RFX GRACIELA AND CULT IF INDIC [URIN] Stat Lab 11/14/19 07:00 Ordered WBC, STOOL [OP] Stat Lab 11/14/19 07:53 Ordered Albuterol [Proventil Neb Soln] Med 11/14/19 12:05 Ordered 2.5 mg NEB Q2H PRN Ondansetron [Zofran] Med 11/14/19 12:05 Ordered 4 mg IV Q4H PRN Pantoprazole [ProTONIX IV] 80 mg Med 11/14/19 08:30 Active Sodium Chloride 0.9% [Normal Saline] 100 ml IV Q10H Sodium Chloride 0.9% [Normal Saline] 1,000 ml Med 11/14/19 08:30 Active IV ASDIRECTED Blood Culture x2 Reflex Set [OM.PC] Stat Oth 11/14/19 07:00 Ordered Sequential Compression Device [OM.PC] Per Unit Routine Oth 11/14/19 12:06 Ordered Resuscitation Status Routine Resus Stat 11/14/19 11:31 Ordered Medication Orders Albuterol (Proventil Neb Soln) 2.5 mg NEB Q2H PRN PRN Reason: Shortness Of Breath/wheezing Pantoprazole Sodium 80 mg/ (Sodium Chloride) 100 mls @ 10 mls/hr IV Q10H JANET Last Admin: 11/14/19 08:56 Dose: 10 mls/hr Sodium Chloride (Normal Saline) 1,000 mls @ 150 mls/hr IV ASDIRECTED JANET Last Admin: 11/14/19 08:55 Dose: 150 mls/hr Ondansetron HCl (Zofran) 4 mg IV Q4H PRN PRN Reason: Nausea/Vomiting Assessment/Plan Comment:: Gastrointestinal hemorrhage likely upper GI tract * Patient with multiple black tarry stools and at least 1 episode of hematemesis. * Patient symptomatic with dizziness and lightheadedness. * Patient was orthostatic and tachycardic with borderline low systolic blood pressure. * Initial hemoglobin 10.5 * Given Protonix 80 mg IV bolus and placed on Protonix drip in the emergency department * Type and screen in the emergency department * White blood cell count elevated at 21 likely secondary to stress reaction * Normal coagulation studies and platelets Plan * Admit to ICU * Fluid resuscitation * Follow H&H every 4-6 hours until stable * Consult Dr. Coombs in surgery * Continue Protonix drip. * N.p.o. Coronary artery disease per history * Patient is currently without chest pain. * She denies PND or orthopnea. Plan * Start supplemental FiO2 secondary to active GI bleed in a patient with coronary artery disease. COPD * On albuterol as needed and Anoro Plan * Follow patient closely on supplemental O2 secondary to her COPD * Albuterol as needed * Restart home on oral if available Type 2 diabetes * Patient on metformin 500 mg twice daily * Unsure hemoglobin A1c Plan * Sliding scale insulin * Fingerstick blood sugar 4 times daily * Get hemoglobin A1c Hypertension/hyperlipidemia * Patient is on metoprolol, hydrochlorothiazide, and amlodipine for hypertension * Atorvastatin for hyperlipidemia * Blood pressure is stable currently and borderline low secondary to GI bleed Plan * Monitor blood pressure closely * Patient is n.p.o. so will need to consider IV coverage for hypertension or tachycardia. VTE prophylaxis with SCDs. Chemoprophylaxis is contraindicated because of active GI bleed. CODE STATUS: Full code Disposition: Admit to ICU. Length of stay 2 to 3 days anticipated. - Mortality Measure Prognosis:: Good
--- NOTE | 2019-11-14 12:40 | PCM.CONS ---
H&P History of Present Illness - General Date of Service: 11/14/19 Admit Problem/Dx: Admission Diagnosis/Problem Admission Diagnosis/Problem Gastrointestinal hemorrhage Source of Information: Patient, Provider History Limitations: Reports: No Limitations - History of Present Illness Other HPI/Comments: Mrs. Calvo is a 74 yo woman who was admitted from the emergency room this morning due to symptomatic anemia with report of melena starting yesterday. The patient reports she was in her usual state of health until she had black, tarry diarrhea yesterday. At the time, when she got up to use the restroom, she developed lightheadedness and dizziness and felt as if she almost would pass out. These symptoms prompted a visit to the ER, at which time she was found to have a WBC 21,000 and Hgb 10.5 g/dL. Her vitals have been normal and she has not passed any stool since admission. She is in no distress; she denies abdominal pain or nausea, no reports of vomiting or hematemesis. She takes aleve and aspirin on a regular basis. She has no history of prior EGD. She had a colonoscopy done in [place], she says about 2 years ago, with a finding of one benign polyp. She has no prior history of GI bleed, and aside from aspirin 81 mg is not taking any anti-platelet or anticoagulation medication. - Related Data Allergies/Adverse Reactions: Allergies Allergy/AdvReac Type Severity Reaction Status Date / Time No Known Allergies Allergy Verified 11/14/19 06:16 Home Medications: Home Meds Ascorbic Acid [Vitamin C] 1,000 mg PO DAILY 02/04/14 [History] Irbesartan [Avapro] 300 mg PO BEDTIME 02/04/14 [History] Levothyroxine Sodium [Synthroid] 75 mcg PO ACBREAKFAST 02/04/14 [History] Metoprolol Tartrate 100 mg PO BID 02/04/14 [History] atorvaSTATin Calcium [Atorvastatin Calcium] 20 mg PO BEDTIME 02/04/14 [History] hydroCHLOROthiazide [Hydrochlorothiazide] 12.5 mg PO DAILY 02/04/14 [History] Albuterol Sulfate [Proair Hfa] 2 puff INH Q6H 08/18/18 [History] Cholecalciferol (Vitamin D3) [Vitamin D3] 400 unit PO DAILY 08/18/18 [History] Gabapentin [Neurontin] 400 mg PO TID 08/18/18 [History] Multivitamin [Zoo Chews] 1 tab PO DAILY 08/18/18 [History] Umeclidinium Brm/Vilanterol Tr [Anoro Ellipta 62.5-25 MCG] 1 puff INH DAILY [History] metFORMIN [Glucophage XR] 500 mg PO BID 08/18/18 [History] amLODIPine [Norvasc] 5 mg PO BID 11/14/19 [History] traMADol [Ultram] 50 mg PO TID 11/14/19 [History] Past Medical History HEENT History: Reports: Impaired Vision Cardiovascular History: Reports: CAD, High Cholesterol, Hypertension Respiratory History: Reports: COPD Gastrointestinal History: Reports: Chronic Constipation, Colon Polyp, Other ( See Below) Other Gastrointestinal History: colitis, colon wall thickening Genitourinary History: Reports: None 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 Musculoskeletal History: Reports: Back Pain, Chronic, Neck Pain, Chronic, Osteoarthritis, Other (See Below) Neurological History: Reports: Neuropathy, Diabetic Psychiatric History: Reports: None Endocrine/Metabolic History: Reports: Diabetes, Type II, Hypothyroidism Hematologic History: Reports: None Immunologic History: Reports: None Oncologic (Cancer) History: Reports: None Dermatologic History: Reports: Other (See Below) Other Dermatologic History: edema, right foot ulcer - Past Surgical History Head Surgeries/Procedures: Reports: None HEENT Surgical History: Reports: Cataract Surgery Cardiovascular Surgical History: Reports: None Respiratory Surgical History: Reports: None GI Surgical History: Reports: Colonoscopy, Hernia Repair/Other Female Surgical History: Reports: Hysterectomy Neurological Surgical History: Reports: None Other Musculoskeletal Surgeries/Procedures:: right carpal tunnel syndrome, bilateral hip and knee replacements Oncologic Surgical History: Reports: None Social & Family History - Family History Family Medical History: Noncontributory - Tobacco Use Smoking Status *Q: Former Smoker Used Tobacco, but Quit: Yes Month/Year Tobacco Last Used: 2007 Tobacco Use Comment: 20 years of smoking hx - Caffeine Use Caffeine Use: Reports: Coffee - Recreational Drug Use Recreational Drug Use: No - Living Situation & Occupation Living situation: Reports: Occupation: Retired H&P Review of Systems - Review of Systems: Review Of Systems: See Below General: Reports: Chills, Weakness, Fatigue HEENT: Reports: No Symptoms Pulmonary: Reports: No Symptoms Cardiovascular: Reports: Lightheadedness Gastrointestinal: Reports: Black Stool, Diarrhea, Melena Genitourinary: Reports: No Symptoms Musculoskeletal: Reports: No Symptoms Skin: Reports: Pallor Psychiatric: Reports: No Symptoms Neurological: Reports: No Symptoms Hematologic/Lymphatic: Reports: Anemia Exam - Exam Exam: See Below - Vital Signs Vital Signs: Last Vital Signs Temp 36.7 C 11/14/19 12:07 Pulse 89 11/14/19 06:13 Resp 14 11/14/19 12:07 BP 135/60 11/14/19 12:07 Pulse Ox 100 11/14/19 12:07 Orthostatic Blood Pressure [ 100/80 Standing] Orthostatic Blood Pressure [ 103/63 Sitting] Orthostatic Blood Pressure [ 130/60 Supine] Weight: 73.936 kg - Exam General: Alert, Oriented, Cooperative HEENT: Conjunctiva Clear Neck: Trachea Midline Lungs: Normal Respiratory Effort Cardiovascular: Other (regular rate and rhythm with occasional missed beats on palpation of radial artery) GI/Abdominal Exam: Soft, Non-Tender, No Distention, No Mass Rectal (Female) Exam: Deferred Skin: Warm, Dry Neuro Extensive - Mental Status: Alert, Normal Mood/Affect - Patient Data Lab Results Last 24 hrs: Laboratory Results - last 24 hr 11/14/19 11/14/19 11/14/19 Range/Units 06:30 06:30 06:30 WBC 21.08 H (3.98-10.04) K/mm3 RBC 3.60 L (3.98-5.22) M/mm3 Hgb 10.5 L D (11.2-15.7) gm/dl Hct 31.8 L (34.1-44.9) % MCV 88.3 (79.4-94.8) fl MCH 29.2 (25.6-32.2) pg MCHC 33.0 (32.2-35.5) g/dl RDW Std Deviation 41.1 (36.4-46.3) fL Plt Count 378 H D (182-369) K/mm3 MPV 10.7 (9.4-12.3) fl Neutrophils % (Manual) 83 H (40-60) % Band Neutrophils % 0 (0-10) % Lymphocytes % (Manual) 13 L (20-40) % Atypical Lymphs % 0 % Monocytes % (Manual) 4 (2-10) % Eosinophils % (Manual) 0 L (0.7-5.8) % Basophils % (Manual) 0 L (0.1-1.2) Platelet Estimate Adequate RBC Morph Comment Normal PT 11.1 (9.7-12.0) SECONDS INR 1.02 APTT 21 L (22-31) SECONDS Sodium 137 (136-145) mEq/L Potassium 4.2 (3.5-5.1) mEq/L Chloride 101 (98-107) mEq/L Carbon Dioxide 21 (21-32) mEq/L Anion Gap 19.2 H (5-15) BUN 74 H D (7-18) mg/dL Creatinine 1.3 H (0.55-1.02) mg/dL Est Cr Clr Drug Dosing 28.21 mL/min Estimated GFR (MDRD) 40 (>60) mL/min BUN/Creatinine Ratio 56.9 H (14-18) Glucose 198 H (83-115) mg/dL Calcium 9.7 (8.5-10.1) mg/dL Magnesium (1.8-2.4) mg/dl Total Bilirubin 0.6 (0.2-1.0) mg/dL AST 15 (15-37) U/L ALT 27 (14-59) U/L Alkaline Phosphatase 45 L (46-116) U/L NT-Pro-B Natriuret Pep (0-450) pg/mL Total Protein 6.7 (6.4-8.2) g/dl Albumin 3.6 (3.4-5.0) g/dl Globulin 3.1 gm/dL Albumin/Globulin Ratio 1.2 (1-2) TSH 3rd Generation (0.358-3.74) uIU/mL Ketones (0.0-0.3) mM Blood Type Gel Antibody Screen 11/14/19 11/14/19 11/14/19 Range/Units 06:30 06:30 06:30 WBC (3.98-10.04) K/mm3 RBC (3.98-5.22) M/mm3 Hgb (11.2-15.7) gm/dl Hct (34.1-44.9) % MCV (79.4-94.8) fl MCH (25.6-32.2) pg MCHC (32.2-35.5) g/dl RDW Std Deviation (36.4-46.3) fL Plt Count (182-369) K/mm3 MPV (9.4-12.3) fl Neutrophils % (Manual) (40-60) % Band Neutrophils % (0-10) % Lymphocytes % (Manual) (20-40) % Atypical Lymphs % % Monocytes % (Manual) (2-10) % Eosinophils % (Manual) (0.7-5.8) % Basophils % (Manual) (0.1-1.2) Platelet Estimate RBC Morph Comment PT (9.7-12.0) SECONDS INR APTT (22-31) SECONDS Sodium (136-145) mEq/L Potassium (3.5-5.1) mEq/L Chloride (98-107) mEq/L Carbon Dioxide (21-32) mEq/L Anion Gap (5-15) BUN (7-18) mg/dL Creatinine (0.55-1.02) mg/dL Est Cr Clr Drug Dosing mL/min Estimated GFR (MDRD) (>60) mL/min BUN/Creatinine Ratio (14-18) Glucose (83-115) mg/dL Calcium (8.5-10.1) mg/dL Magnesium 1.7 L (1.8-2.4) mg/dl Total Bilirubin (0.2-1.0) mg/dL AST (15-37) U/L ALT (14-59) U/L Alkaline Phosphatase (46-116) U/L NT-Pro-B Natriuret Pep (0-450) pg/mL Total Protein (6.4-8.2) g/dl Albumin (3.4-5.0) g/dl Globulin gm/dL Albumin/Globulin Ratio (1-2) TSH 3rd Generation 0.644 (0.358-3.74) uIU/mL Ketones (0.0-0.3) mM Blood Type O POSITIVE Gel Antibody Screen Negative 11/14/19 11/14/19 Range/Units 06:30 06:30 WBC (3.98-10.04) K/mm3 RBC (3.98-5.22) M/mm3 Hgb (11.2-15.7) gm/dl Hct (34.1-44.9) % MCV (79.4-94.8) fl MCH (25.6-32.2) pg MCHC (32.2-35.5) g/dl RDW Std Deviation (36.4-46.3) fL Plt Count (182-369) K/mm3 MPV (9.4-12.3) fl Neutrophils % (Manual) (40-60) % Band Neutrophils % (0-10) % Lymphocytes % (Manual) (20-40) % Atypical Lymphs % % Monocytes % (Manual) (2-10) % Eosinophils % (Manual) (0.7-5.8) % Basophils % (Manual) (0.1-1.2) Platelet Estimate RBC Morph Comment PT (9.7-12.0) SECONDS INR APTT (22-31) SECONDS Sodium (136-145) mEq/L Potassium (3.5-5.1) mEq/L Chloride (98-107) mEq/L Carbon Dioxide (21-32) mEq/L Anion Gap (5-15) BUN (7-18) mg/dL Creatinine (0.55-1.02) mg/dL Est Cr Clr Drug Dosing mL/min Estimated GFR (MDRD) (>60) mL/min BUN/Creatinine Ratio (14-18) Glucose (83-115) mg/dL Calcium (8.5-10.1) mg/dL Magnesium (1.8-2.4) mg/dl Total Bilirubin (0.2-1.0) mg/dL AST (15-37) U/L ALT (14-59) U/L Alkaline Phosphatase (46-116) U/L NT-Pro-B Natriuret Pep 549 H (0-450) pg/mL Total Protein (6.4-8.2) g/dl Albumin (3.4-5.0) g/dl Globulin gm/dL Albumin/Globulin Ratio (1-2) TSH 3rd Generation (0.358-3.74) uIU/mL Ketones 0.73 (0.0-0.3) mM Blood Type Gel Antibody Screen Result Diagrams: 11/14/19 06:30 11/14/19 06:30 Sepsis Event Note - Evaluation Sepsis Screening Result: No Definite Risk - Focused Exam Vital Signs: Vital Signs Temp Pulse Resp BP Pulse Ox 11/14/19 12:07 36.7 C 14 135/60 100 11/14/19 11:00 36.6 C 15 125/77 99 11/14/19 06:13 36.1 C 89 18 122/73 99 Date Exam was Performed: 11/14/19 Time Exam was Performed: 12:35 *Q Meaningful Use (ADM) - VTE Risk Assess *Q Each Risk Factor Represents 3 Points: Age 75 Years or Greater Total Score 3 Point Risk Factors: 3 Consult PN Assessment/Plan Procedures: Procedures ASSAY OF CK (CPK) (02/04/14) ASSAY OF TROPONIN QUANT (02/04/14) C-REACTIVE PROTEIN (02/04/14) CARDIOVASCULAR STRESS TEST (02/06/14) CARPAL TUNNEL SURGERY (08/21/18) CHEST X-RAY 1 VIEW FRONTAL (02/04/14) COMPLETE CBC W/AUTO DIFF WBC (02/04/14) COMPREHEN METABOLIC PANEL (02/04/14) CREATINE MB FRACTION (02/04/14) ELECTROCARDIOGRAM TRACING (02/04/14) EMERGENCY DEPT VISIT (02/04/14) EXTREMITY STUDY (01/18/18) FIBRIN DEGRADATION QUANT (02/04/14) HT MUSCLE IMAGE SPECT MULT (02/06/14) INCISE FINGER TENDON SHEATH (08/21/18) METABOLIC PANEL TOTAL CA (08/21/18) MR-STAPH DNA AMP PROBE (08/21/18) PROTHROMBIN TIME (02/04/14) ROUTINE VENIPUNCTURE (08/21/18) THROMBOPLASTIN TIME PARTIAL (11/21/13) Problem List Initiated/Reviewed/Updated: Yes Plan: Melena with symptomatic anemia. Currently hemodynamically stable and in no distress. Repeat lab work is pending. Differential is broad but including peptic ulcer disease, malignancy, AVM, polyps, and less likely diverticular bleed. Currently holding NSAID medications and PPI treatment has been initiated. Depending on trend of Hgb and ongoing symptoms of anemia, we may plan for diagnostic upper and lower endoscopy. If patient is stable, will plan for pre- procedure bowel prep with polyethylene glycol. Requesting Provider: Mason Mcdermott Consult Requested: 11/14/19 Reason for Consult: gastrointestinal hemorrhage Patient History Reviewed: Yes Admission H&P Reviewed: Yes Notified Requestor: Yes Time Spent (in minutes): 45
[2019-11-14] MEDS ORDERED: Magnesium Sulfate/Water 4 GM in Premix Bag 1 BAG IV ONE (12:41)
[2019-11-14] MEDS ORDERED: Polyethylene Glycol/Electrolytes 4,000 ML Bottle PO ONE (14:55)
--- NOTE | 2019-11-14 14:57 | PCM.SN.2 ---
- Free Text/Narrative Note: Hgb stable on recheck at 10.2 g/dL. Plan for bowel prep to start now in preparation for diagnostic EGD, colonoscopy tomorrow given the patient's recent melena and symptomatic anemia.
[2019-11-14] MEDS ORDERED: hydrALAZINE 20 MG/ML SDV IVPUSH PRN (15:40)
--- NOTE | 2019-11-14 16:35 | PCM.PREANE ---
Preanesthetic Assessment - Procedure Proposed Procedure: EGD / Colonoscopy - Anesthesia/Transfusion/Family Hx Anesthesia History: Prior Anesthesia Without Reaction Family History of Anesthesia Reaction: No Transfusion History: Prior Transfusion Without Reaction Intubation History: Unknown - Review of Systems General: Malaise Pulmonary: Shortness of Breath, Other (COPD on inhalers) Cardiovascular: Dyspnea on Exertion Gastrointestinal: Diarrhea Neurological: Numbness (Toes and fingers), Difficulty Walking (walks with pino or walker) Other: Reports: Easy Bleeding, Easy Bruising, Diabetes, Thyroid Problems ( hypothyroid) - Physical Assessment NPO Status Date: 11/13/19 NPO Status Time: 10:00 (Banana) Vital Signs: Last Vital Signs Temp 36.7 C 11/14/19 12:07 Pulse 89 11/14/19 06:13 Resp 14 11/14/19 12:07 BP 135/60 11/14/19 12:07 Pulse Ox 100 11/14/19 12:07 Orthostatic Blood Pressure [ 100/80 Standing] Orthostatic Blood Pressure [ 103/63 Sitting] Orthostatic Blood Pressure [ 130/60 Supine] Height: 1.55 m Weight: 73.936 kg ASA Class: 3 Mental Status: Alert & Oriented x3 Airway Class: Mallampati = 1 Dentition: Reports: [place](s), Broken Tooth/Teeth, Missing Tooth/Teeth, Caries Thyro-Mental Finger Breadths: 2 Mouth Opening Finger Breadths: 3 ROM/Head Extension: Full Lungs: Clear to Auscultation, Normal Respiratory Effort Cardiovascular: Regular Rate, Regular Rhythm - Lab Values: Laboratory Last Values WBC 21.08 K/mm3 (3.98-10.04) H 11/14/19 06:30 RBC 3.60 M/mm3 (3.98-5.22) L 11/14/19 06:30 Hgb 10.2 gm/dl (11.2-15.7) L 11/14/19 12:03 Hct 30.9 % (34.1-44.9) L 11/14/19 12:03 MCV 88.3 fl (79.4-94.8) 11/14/19 06:30 MCH 29.2 pg (25.6-32.2) 11/14/19 06:30 MCHC 33.0 g/dl (32.2-35.5) 11/14/19 06:30 RDW Std Deviation 41.1 fL (36.4-46.3) 11/14/19 06:30 Plt Count 378 K/mm3 (182-369) H D 11/14/19 06:30 MPV 10.7 fl (9.4-12.3) 11/14/19 06:30 Neutrophils % (Manual) 83 % (40-60) H 11/14/19 06:30 Band Neutrophils % 0 % (0-10) 11/14/19 06:30 Lymphocytes % (Manual) 13 % (20-40) L 11/14/19 06:30 Atypical Lymphs % 0 % 11/14/19 06:30 Monocytes % (Manual) 4 % (2-10) 11/14/19 06:30 Eosinophils % (Manual) 0 % (0.7-5.8) L 11/14/19 06:30 Basophils % (Manual) 0 (0.1-1.2) L 11/14/19 06:30 Platelet Estimate Adequate 11/14/19 06:30 RBC Morph Comment Normal 11/14/19 06:30 PT 11.1 SECONDS (9.7-12.0) 11/14/19 06:30 INR 1.02 11/14/19 06:30 APTT 21 SECONDS (22-31) L 11/14/19 06:30 Sodium 137 mEq/L (136-145) 11/14/19 06:30 Potassium 4.2 mEq/L (3.5-5.1) 11/14/19 06:30 Chloride 101 mEq/L (98-107) 11/14/19 06:30 Carbon Dioxide 21 mEq/L (21-32) 11/14/19 06:30 Anion Gap 19.2 (5-15) H 11/14/19 06:30 BUN 74 mg/dL (7-18) H D 11/14/19 06:30 Creatinine 1.3 mg/dL (0.55-1.02) H 11/14/19 06:30 Est Cr Clr Drug Dosing 28.21 mL/min 11/14/19 06:30 Estimated GFR (MDRD) 40 mL/min (>60) 11/14/19 06:30 BUN/Creatinine Ratio 56.9 (14-18) H 11/14/19 06:30 Glucose 198 mg/dL (83-115) H 11/14/19 06:30 Calcium 9.7 mg/dL (8.5-10.1) 11/14/19 06:30 Magnesium 1.7 mg/dl (1.8-2.4) L 11/14/19 06:30 Total Bilirubin 0.6 mg/dL (0.2-1.0) 11/14/19 06:30 AST 15 U/L (15-37) 11/14/19 06:30 ALT 27 U/L (14-59) 11/14/19 06:30 Alkaline Phosphatase 45 U/L (46-116) L 11/14/19 06:30 NT-Pro-B Natriuret Pep 549 pg/mL (0-450) H 11/14/19 06:30 Total Protein 6.7 g/dl (6.4-8.2) 11/14/19 06:30 Albumin 3.6 g/dl (3.4-5.0) 11/14/19 06:30 Globulin 3.1 gm/dL 11/14/19 06:30 Albumin/Globulin Ratio 1.2 (1-2) 11/14/19 06:30 TSH 3rd Generation 0.644 uIU/mL (0.358-3.74) 11/14/19 06:30 Ketones 0.73 mM (0.0-0.3) 11/14/19 06:30 Blood Type O POSITIVE 11/14/19 06:30 Gel Antibody Screen Negative 11/14/19 06:30 - Imaging/EKG Impressions: EKG NSR Rate 94 Prolonged QT - Allergies Allergies/Adverse Reactions: Allergies Allergy/AdvReac Type Severity Reaction Status Date / Time No Known Allergies Allergy Verified 11/14/19 06:16 - Acknowledgements Anesthesia Type Planned: MAC Pt an Appropriate Candidate for the Planned Anesthesia: Yes Alternatives and Risks of Anesthesia Discussed w Pt/Guardian: Yes Pt/Guardian Understands and Agrees with Anesthesia Plan: Yes PreAnesthesia Questionnaire HEENT History: Reports: Impaired Vision Cardiovascular History: Reports: CAD, High Cholesterol, Hypertension Respiratory History: Reports: COPD Gastrointestinal History: Reports: Chronic Constipation, Colon Polyp, Other ( See Below) Other Gastrointestinal History: colitis, colon wall thickening Genitourinary History: Reports: None 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: 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 Musculoskeletal History: Reports: Back Pain, Chronic, Neck Pain, Chronic, Osteoarthritis, Other (See Below) Neurological History: Reports: Neuropathy, Diabetic Psychiatric History: Reports: None Endocrine/Metabolic History: Reports: Diabetes, Type II, Hypothyroidism Hematologic History: Reports: None Immunologic History: Reports: None Oncologic (Cancer) History: Reports: None Dermatologic History: Reports: Other (See Below) Other Dermatologic History: edema, right foot ulcer - Past Surgical History Head Surgeries/Procedures: Reports: None HEENT Surgical History: Reports: Cataract Surgery Cardiovascular Surgical History: Reports: None Respiratory Surgical History: Reports: None GI Surgical History: Reports: Colonoscopy, Hernia Repair/Other Female Surgical History: Reports: Hysterectomy Neurological Surgical History: Reports: None Other Musculoskeletal Surgeries/Procedures:: right carpal tunnel syndrome, bilateral hip and knee replacements Oncologic Surgical History: Reports: None - SUBSTANCE USE Smoking Status *Q: Former Smoker Tobacco Use Within Last Twelve Months: No Second Hand Smoke Exposure: No Days Per Week of Alcohol Use: 0 Number of Drinks Per Day: 0 Total Drinks Per Week: 0 Recreational Drug Use History: No - HOME MEDS Home Medications: Home Meds Ascorbic Acid [Vitamin C] 1,000 mg PO DAILY 02/04/14 [History] Irbesartan [Avapro] 300 mg PO BEDTIME 02/04/14 [History] Levothyroxine Sodium [Synthroid] 75 mcg PO ACBREAKFAST 02/04/14 [History] Metoprolol Tartrate 100 mg PO BID 02/04/14 [History] atorvaSTATin Calcium [Atorvastatin Calcium] 20 mg PO BEDTIME 02/04/14 [History] hydroCHLOROthiazide [Hydrochlorothiazide] 12.5 mg PO DAILY 02/04/14 [History] Albuterol Sulfate [Proair Hfa] 2 puff INH Q6H 08/18/18 [History] Cholecalciferol (Vitamin D3) [Vitamin D3] 400 unit PO DAILY 08/18/18 [History] Gabapentin [Neurontin] 400 mg PO TID 08/18/18 [History] Multivitamin [Zoo Chews] 1 tab PO DAILY 08/18/18 [History] Umeclidinium Brm/Vilanterol Tr [Anoro Ellipta 62.5-25 MCG] 1 puff INH DAILY [History] metFORMIN [Glucophage XR] 500 mg PO BID 08/18/18 [History] amLODIPine [Norvasc] 5 mg PO BID 11/14/19 [History] traMADol [Ultram] 50 mg PO TID 11/14/19 [History] - CURRENT (IN HOUSE) MEDS Current Meds: Current Medications Albuterol (Proventil Neb Soln) 2.5 mg NEB Q2H PRN PRN Reason: Shortness Of Breath/wheezing Dextrose/Water (Dextrose 50% In Water) 50 ml IVPUSH ASDIRECTED PRN PRN Reason: Hypoglycemia Gabapentin (Neurontin) 100 mg PO ONETIME ONE Stop: 11/14/19 21:01 Gabapentin (Neurontin) 300 mg PO ONETIME ONE Stop: 11/14/19 21:01 Hydralazine HCl (Apresoline) 10 mg IVPUSH Q4H PRN PRN Reason: Hypertension Pantoprazole Sodium 80 mg/ (Sodium Chloride) 100 mls @ 10 mls/hr IV Q10H [facility] Last Admin: 11/14/19 08:56 Dose: 10 mls/hr Sodium Chloride (Normal Saline) 1,000 mls @ 150 mls/hr IV ASDIRECTED [facility] Last Admin: 11/14/19 08:55 Dose: 150 mls/hr Magnesium Sulfate 4 gm/ Premix 50 mls @ 12.5 mls/hr IV ONETIME ONE Stop: 11/14/19 16:40 Last Admin: 11/14/19 14:36 Dose: 12.5 mls/hr Insulin Human Lispro (Humalog) 0 unit SUBCUT QIDACANDBED [facility]; Protocol Anoro Ellipta 62.5- (25 Mcg) 0 puff INH DAILY [facility] Ondansetron HCl (Zofran) 4 mg IV Q4H PRN PRN Reason: Nausea/Vomiting Discontinued Medications Pantoprazole Sodium (Protonix Iv) 80 mg IVPUSH BOLUS ONE Stop: 11/14/19 06:52 Last Admin: 11/14/19 07:00 Dose: 80 mg Polyethylene Glycol/Electrolytes (Golytely) 4,000 ml PO ONETIME ONE Stop: 11/14/19 14:56 Last Admin: 11/14/19 15:44 Dose: 4,000 ml
[2019-11-14] MEDS: Insulin Lispro 100 Units/ML 3 ML Vial SUBCUT SCH ×2 (17:32→21:43)
[2019-11-14] MEDS ORDERED: Gabapentin 100 MG Cap PO ONE (21:00)
[2019-11-14] MEDS ORDERED: Gabapentin 300 MG Cap PO ONE (21:00)
[2019-11-15] MEDS: Insulin Lispro 100 Units/ML 3 ML Vial SUBCUT SCH (06:47)
[2019-11-15] MEDS ORDERED: Pantoprazole 40 MG Vial IVPUSH SCH (08:00)
--- NOTE | 2019-11-15 08:25 | CR ---
Chest: Portable supine view of the chest was obtained. Comparison: Prior chest x-ray of 02/04/14. Heart size is within normal limits for portable technique. Tortuous thoracic aorta is noted. Right jugular line is seen with tip lying within the right atrium. Lungs are clear with no acute parenchymal change. Bony structures are grossly intact. Impression: 1. Tip of right jugular line within the right atria. 2. Nothing acute is otherwise seen on portable chest x-ray. Diagnostic code #2 This report was dictated in MDT
[2019-11-15] MEDS: TRELEGY ELIPTA INH SCH (09:29)
[2019-11-15] MEDS: Pantoprazole 80 MG in Sodium Chloride 0.9% 100 ML IV SCH (10:10)
[2019-11-15] MEDS ORDERED: Lidocaine 1% 4 ML ONE (10:44)
[2019-11-15] MEDS ORDERED: Propofol 200 MG/20 ML SDV ONE ×2 (10:44→11:17)
--- NOTE | 2019-11-15 11:32 | PCM.PRNOTE ---
- Free Text/Narrative Note: Date: 11/15/2019 Procedure: diagnostic esophagogastroduodenoscopy and colonoscopy Indications: symptomatic anemia, reported melena Endoscopist: Yordan Coombs MD Findings: normal findings. No evidence of hemorrhage within visualized GI tract. Detailed Report: The patient was taken to the endoscopy suite and placed in left lateral decubitus position. Time out was performed and monitored anesthesia care was initiated. A bite block was placed and the endoscope inserted in the mouth. The scope was advanced to the second portion of the duodenum with ease. There was no blood noted, and no mucosal pathology of the duodenum, stomach, or esophagus. Next, colonoscopy was performed. Large external hemorrhoidal skin tags were noted. Digital rectal exam was unremarkable. The lubricated colonoscope was then inserted and advanced all the way to the cecum. The bowel prep was very good. The ileocecal valve and appendiceal orifice were visualized. There was no finding of melena. No polyps, ulcers, or vascular malformations were noted. No diverticular disease appreciated. The patient tolerated the procedure well. Yordan Coombs MD General Surgery
--- NOTE | 2019-11-15 11:41 | PCM48HPAN ---
Post Anesthesia Note - EVALUATION WITHIN 48HRS OF ANESTHETIC Vital Signs in Normal Range: Yes Patient Participated in Evaluation: Yes Respiratory Function Stable: Yes Airway Patent: Yes Cardiovascular Function Stable: Yes Hydration Status Stable: Yes Pain Control Satisfactory: Yes Nausea and Vomiting Control Satisfactory: Yes Mental Status Recovered: Yes Vital Signs: Last Vital Signs Temp 36.6 C 11/15/19 08:48 Pulse 89 11/15/19 08:48 Resp 14 11/15/19 08:48 BP 143/55 H 11/15/19 08:48 Pulse Ox 95 11/15/19 08:48 Orthostatic Blood Pressure [ 100/80 Standing] Orthostatic Blood Pressure [ 103/63 Sitting] Orthostatic Blood Pressure [ 130/60 Supine]
[2019-11-15] MEDS: Potassium Chloride 10 MEQ in Premix Bag 1 BAG IV SCH ×3 (12:16→14:22)
[2019-11-15] MEDS ORDERED: Potassium Phosphates 30 MMOLE in Sodium Chloride 0.9% 500 ML IV ONE (12:30)
--- NOTE | 2019-11-15 16:15 | PCM.PRNOTE ---
- Free Text/Narrative Note: Central Venous Catheter Placement Date: 11/15/2019 Indication: Intravenous access Attending: Jaky Smith MD A time-out was completed verifying correct patient, procedure, site, positioning , and special equipment if applicable. The patient was placed in a dependent position appropriate for central line placement based on the vein to becannulated. The patients right neck was prepped and draped in sterile fashion. 1%Lidocainewas used to anesthetize the surrounding skin area. A triple lumen 7-FrenchCordiscatheter was introduced into the the internal jugular using the Seldingertechnique and under ultrasound guidance. The catheter was threaded smoothly over the guide wire and appropriate blood return was obtained. Each lumen of the catheter was evacuated of air and flushed with sterile saline. The catheter was then sutured in place to the skin and a sterile dressing applied. Perfusion to the extremity distal to the point of catheter insertion was checked and found to be adequate. Estimated Blood Loss: 5mL The patient tolerated the procedure well and there were no complications.
--- NOTE | 2019-11-15 16:16 | PCM.PN ---
- General Info Date of Service: 11/15/19 - Patient Data Vitals - Most Recent: Last Vital Signs Temp 98 F 11/15/19 12:00 Pulse 80 11/15/19 09:03 Resp 16 11/15/19 12:00 BP 136/63 11/15/19 12:00 Pulse Ox 97 11/15/19 12:00 Weight - Most Recent: 73.21 kg - Exam General: Alert, Oriented, Cooperative, No Acute Distress HEENT: Pupils Equal, Pupils Reactive, EOMI, Mucous Membr. Moist/[place] Neck: Supple, Trachea Midline, No JVD, No Thyromegaly Lungs: Clear to Auscultation, Normal Respiratory Effort. No: Crackles, Rales, Rhonchi, Rub, Stridor, Wheezing Cardiovascular: Regular Rate, Regular Rhythm. No: Murmurs, Gallops, Rubs GI/Abdominal Exam: Normal Bowel Sounds, Soft, Non-Tender. No: Distended, Guarding, Rigid, Rebound Back Exam: Normal Inspection Extremities: Normal Inspection, Non-Tender, No Pedal Edema, Slow Capillary Refill Peripheral Pulses: 2+: Carotid (L), Carotid (R), Brachial (L), Brachial (R), Dorsalis Pedis (L), Dorsalis Pedis (R) Skin: Warm, Dry Neurological: No New Focal Deficit Psy/Mental Status: Alert Sepsis Event Note - Evaluation Sepsis Screening Result: No Definite Risk - Focused Exam Vital Signs: Vital Signs Temp Temp Pulse Resp BP Pulse Ox 11/15/19 12:00 98 F 16 136/63 97 11/15/19 09:03 98 F 80 14 139/61 97 11/15/19 08:48 97.8 F 89 14 143/55 H 95 11/15/19 08:00 97.8 F 16 143/55 H 94 L Date Exam was Performed: 11/15/19 Time Exam was Performed: 16:33 - Problem List & Annotations (1) Upper GI bleed SNOMED Code(s): 08465679 Code(s): K92.2 - GASTROINTESTINAL HEMORRHAGE, UNSPECIFIED Status: Acute Current Visit: Yes (2) Hypertension SNOMED Code(s): 43176172 Code(s): I10 - ESSENTIAL (PRIMARY) HYPERTENSION Status: Acute Current Visit: Yes (3) Hypovolemia SNOMED Code(s): 169326473 Code(s): E86.1 - HYPOVOLEMIA Status: Acute Current Visit: Yes (4) Anemia due to blood loss, acute SNOMED Code(s): 415801678 Code(s): D62 - ACUTE POSTHEMORRHAGIC ANEMIA Status: Acute Current Visit: Yes (5) Diabetes mellitus SNOMED Code(s): 38848445 Code(s): E11.9 - TYPE 2 DIABETES MELLITUS WITHOUT COMPLICATIONS Status: Acute Current Visit: Yes (6) Coronary artery disease SNOMED Code(s): 59577401 Code(s): I25.10 - ATHSCL HEART DISEASE OF [place] CORONARY ARTERY W/O ANG PCTRS Status: Acute Current Visit: Yes (7) COPD (chronic obstructive pulmonary disease) SNOMED Code(s): 35056932 Code(s): J44.9 - CHRONIC OBSTRUCTIVE PULMONARY DISEASE, UNSPECIFIED Status : Acute Current Visit: Yes (8) Former smoker SNOMED Code(s): 6369333 Code(s): Z87.891 - PERSONAL HISTORY OF NICOTINE DEPENDENCE Status: Acute Current Visit: Yes - Problem List Review Problem List Initiated/Reviewed/Updated: Yes - Assessment Assessment:: 11/14/2019 - Melena and hematemesis prior to admission with signs of hypovolemia on admission - Admitted on Protonix - Colonoscopy prep started - Normal coagulation work up and no blood thinners or antiplatelet therapies - Hb trending down from admission 10.6 11/15/2019 - Multiple attempts were made to cannulate a peripheral vein however, they were unsuccessful for which decision was made to place a central line - Hb trended down to 7.6 today - 1u PRBC ordered and given - EGD/Colonoscopy scheduled for today - Plan Plan:: Upper GI bleed Anemia due to blood loss, acute - Transfuse 1U PRBCs - Repeat Hb after transfusion - Change Protonix drip to bolus dosing - Endoscopic procedures today Hypertension - Continue to hold home medications Diabetes mellitus - Advance diet as tolerated - Accuchecks TID AC and postprandial - Discontinue insulin sliding scale Coronary artery disease - Reconcile home medications once PO COPD (chronic obstructive pulmonary disease) Former smoker - Monitor oxygenation - Goal O2 sat > 88% PROPHYLAXIS DVT- pharmacological contraindicated, compression stockings GI- Protonix BID CODE STATUS: FULL CODE DISPOSITION: Admitted for UGIB, endoscopies to be performed today and disposition pending results and work up. PT/OT evaluation ordered today. Central Line Insertion - Central Line Insertion Site: internal jugular (R) Prep: CDC/MBT Guidelines, Sterile Drapes, Chlorhexidine Lumen: triple Gauge: 7Fr Local Anesthesia - Lidocaine (Xylocaine): 1% Plain Local Anesthetic Volume: 5cc Ultrasound guided: Yes Micropuncture kit used: Yes CL Complications: No Secured with suture: Yes Post placement confirmation: CXR, all ports aspirated, all ports flushed CXR post-procedure: no pneumothorax, no hemothorax Dressing applied: by provider (Patient tolerated procedure without complications. )
[2019-11-15] MEDS: Pantoprazole 40 MG Tab.CR PO SCH (17:08)
[2019-11-16] MEDS: Pantoprazole 40 MG Tab.CR PO SCH ×2 (06:19→15:40)
[2019-11-16] MEDS: TRELEGY ELIPTA INH SCH (08:01)
[2019-11-16] MEDS: Potassium Phosphates 30 MMOLE in Sodium Chloride 0.9% 500 ML IV SCH ×2 (11:24→16:42)
[2019-11-16] MEDS ORDERED: Magnesium Sulfate/Water 4 GM in Premix Bag 1 BAG IV ONE (11:30)
--- NOTE | 2019-11-16 11:57 | PCM.PN ---
- General Info Date of Service: 11/16/19 Subjective Update: Slept OK Tolerating diet BM today - Patient Data Vitals - Most Recent: Last Vital Signs Temp 98 F 11/16/19 08:41 Pulse 90 11/15/19 20:00 Resp 16 11/16/19 08:41 BP 143/75 H 11/16/19 08:41 Pulse Ox 95 11/16/19 08:41 Weight - Most Recent: 74.797 kg - Exam General: Alert, Oriented, Cooperative, No Acute Distress HEENT: Pupils Equal, Pupils Reactive, EOMI, Mucous Membr. Moist/[place] Neck: Supple, Trachea Midline, No JVD Lungs: Clear to Auscultation, Normal Respiratory Effort. No: Crackles, Rales, Rhonchi, Rub, Stridor, Wheezing Cardiovascular: Regular Rate, Regular Rhythm. No: Murmurs, Gallops, Rubs GI/Abdominal Exam: Normal Bowel Sounds, Soft, Non-Tender. No: Distended, Guarding, Rigid, Rebound Extremities: Normal Inspection, Normal Range of Motion, No Pedal Edema, Normal Capillary Refill Sepsis Event Note - Evaluation Sepsis Screening Result: No Definite Risk - Problem List & Annotations (1) Upper GI bleed SNOMED Code(s): 15174745 Code(s): K92.2 - GASTROINTESTINAL HEMORRHAGE, UNSPECIFIED Status: Acute Current Visit: Yes (2) Hypertension SNOMED Code(s): 76038612 Code(s): I10 - ESSENTIAL (PRIMARY) HYPERTENSION Status: Acute Current Visit: Yes (3) Hypovolemia SNOMED Code(s): 756966693 Code(s): E86.1 - HYPOVOLEMIA Status: Acute Current Visit: Yes (4) Anemia due to blood loss, acute SNOMED Code(s): 512354615 Code(s): D62 - ACUTE POSTHEMORRHAGIC ANEMIA Status: Acute Current Visit: Yes (5) Diabetes mellitus SNOMED Code(s): 89071097 Code(s): E11.9 - TYPE 2 DIABETES MELLITUS WITHOUT COMPLICATIONS Status: Acute Current Visit: Yes (6) Coronary artery disease SNOMED Code(s): 94331410 Code(s): I25.10 - ATHSCL HEART DISEASE OF [place] CORONARY ARTERY W/O ANG PCTRS Status: Acute Current Visit: Yes (7) COPD (chronic obstructive pulmonary disease) SNOMED Code(s): 56153403 Code(s): J44.9 - CHRONIC OBSTRUCTIVE PULMONARY DISEASE, UNSPECIFIED Status : Acute Current Visit: Yes (8) Former smoker SNOMED Code(s): 4518745 Code(s): Z87.891 - PERSONAL HISTORY OF NICOTINE DEPENDENCE Status: Acute Current Visit: Yes (9) Hypokalemia SNOMED Code(s): 90290594 Code(s): E87.6 - HYPOKALEMIA Status: Acute Current Visit: Yes (10) Hypophosphatemia SNOMED Code(s): 2303234 Code(s): E83.39 - OTHER DISORDERS OF PHOSPHORUS METABOLISM Status: Acute Current Visit: Yes (11) Hypomagnesemia SNOMED Code(s): 356990717 Code(s): E83.42 - HYPOMAGNESEMIA Status: Acute Current Visit: Yes - Problem List Review Problem List Initiated/Reviewed/Updated: Yes - Assessment Assessment:: 11/14/2019 - Melena and hematemesis prior to admission with signs of hypovolemia on admission - Admitted on Protonix - Colonoscopy prep started - Normal coagulation work up and no blood thinners or antiplatelet therapies - Hb trending down from admission 10.6 11/15/2019 - Multiple attempts were made to cannulate a peripheral vein however, they were unsuccessful for which decision was made to place a central line - Hb trended down to 7.6 today - 1u PRBC ordered and given - EGD/Colonoscopy did not find any signs of bleeding - Hb stable 11/16/2019 - Hypokalemia improved minimally, from 3.2 to 3.4 - PO4 up from 2.2 to 2.4 - Mg down from 2.3 to 1.3 - BP trend 108-143/49-99 - HR trend 78-97x' - Switch pantoprazole to PO - Plan Plan:: Upper GI bleed Anemia due to blood loss, acute - Repeat Hb in AM - Change Protonix to PO Hypertension - Continue home medications - PRN hydralazine Diabetes mellitus - Accuchecks TID AC and postprandial Coronary artery disease - Continue home medications COPD (chronic obstructive pulmonary disease) Former smoker - Monitor oxygenation - Goal O2 sat > 88% PROPHYLAXIS DVT- pharmacological contraindicated, compression stockings GI- Protonix BID CODE STATUS: FULL CODE DISPOSITION: Admitted for UGIB, endoscopies did not find active bleeding. Electrolytes to be replaced today, discharge likely in AM.
[2019-11-16] MEDS ORDERED: Albuterol 6.7 GM Inhaler INH SCH (12:00)
[2019-11-16] MEDS: Potassium Chloride 10 MEQ in Premix Bag 1 BAG IV SCH ×4 (12:05→15:44)
[2019-11-16] MEDS: Albuterol 6.7 GM Inhaler INH SCH ×2 (14:15→20:03)
[2019-11-16] MEDS: traMADol 50 MG Tab PO SCH ×2 (15:40→20:27)
[2019-11-16] MEDS: Gabapentin 300 MG Cap PO SCH ×2 (15:40→20:27)
[2019-11-16] MEDS: Gabapentin 100 MG Cap PO SCH ×2 (15:40→20:27)
[2019-11-16] MEDS: amLODIPine 5 MG Tab PO SCH (20:27)
[2019-11-16] MEDS: Metoprolol Tartrate 100 MG Tab PO SCH (20:28)
[2019-11-16] MEDS ORDERED: Losartan 100 MG Tab PO SCH (21:00)
[2019-11-16] MEDS ORDERED: Simvastatin 20 MG Tab PO SCH (21:00)
[2019-11-17] MEDS: Albuterol 6.7 GM Inhaler INH SCH ×2 (03:42→08:03)
[2019-11-17] MEDS: Pantoprazole 40 MG Tab.CR PO SCH (05:52)
[2019-11-17] MEDS ORDERED: Levothyroxine 75 MCG Tab PO SCH (06:00)
[2019-11-17] MEDS: TRELEGY ELIPTA INH SCH (08:03)
--- NOTE | 2019-11-17 08:56 | PCM.DCSUM1 ---
Discharge Summary - Hospital Course HPI Initial Comments: 34-year-old female who has a history of COPD and coronary artery disease presents to the emergency department with melanotic stools. She states that last night she vomited blood and then throughout the night and morning she had black stools. She states that this morning she filled the toilet with black stools. Patient did complain of being lightheaded and dizzy. She states in the melanite she was very short of breath. She denies any chest pain, orthopnea , PND, abdominal pain, or history of peptic ulcer disease. Patient does take 2 Aleve in the morning and 1 Aleve p.m. at night. She also takes a baby aspirin in the morning. Initial blood pressure was 122/73, but I did decrease to blood pressure of 104. Orthostatics were positive. Patient was started on IV fluids and had type and screen done. Protonix 80 mg IV push and then IV drip was started. Initial hemoglobin was 10.5, platelets 378, INR 1.02, APTT 20 weeks 1. Electrolytes were normal, but anion gap was elevated at 19.2. BUN was elevated at 74 and creatinine of 1.3 with estimated GFR of 40. Unknown what her baseline is but this looks to be close to baseline. Ketones were 0.73 and BNP was slightly elevated at 549. Patient was then transferred to the ICU. Diagnosis: Stroke: No - Discharge Data Discharge Date: 11/17/19 Discharge Disposition: Home, Self-Care 01 Condition: Good - Referral to Home Health Primary Care Physician: Nasim Melton MD - Discharge Diagnosis/Problem(s) (1) Upper GI bleed SNOMED Code(s): 87530012 ICD Code: K92.2 - GASTROINTESTINAL HEMORRHAGE, UNSPECIFIED Status: Acute Current Visit: Yes (2) Hypertension SNOMED Code(s): 05265449 ICD Code: I10 - ESSENTIAL (PRIMARY) HYPERTENSION Status: Acute Current Visit: Yes (3) Hypovolemia SNOMED Code(s): 947407975 ICD Code: E86.1 - HYPOVOLEMIA Status: Acute Current Visit: Yes (4) Anemia due to blood loss, acute SNOMED Code(s): 476303878 ICD Code: D62 - ACUTE POSTHEMORRHAGIC ANEMIA Status: Acute Current Visit : Yes (5) Diabetes mellitus SNOMED Code(s): 46268027 ICD Code: E11.9 - TYPE 2 DIABETES MELLITUS WITHOUT COMPLICATIONS Status: Acute Current Visit: Yes (6) Coronary artery disease SNOMED Code(s): 93150360 ICD Code: I25.10 - ATHSCL HEART DISEASE OF [place] CORONARY ARTERY W/O ANG PCTRS Status: Acute Current Visit: Yes (7) COPD (chronic obstructive pulmonary disease) SNOMED Code(s): 00639776 ICD Code: J44.9 - CHRONIC OBSTRUCTIVE PULMONARY DISEASE, UNSPECIFIED Status : Acute Current Visit: Yes (8) Former smoker SNOMED Code(s): 3883557 ICD Code: Z87.891 - PERSONAL HISTORY OF NICOTINE DEPENDENCE Status: Acute Current Visit: Yes (9) Hypokalemia SNOMED Code(s): 50301618 ICD Code: E87.6 - HYPOKALEMIA Status: Acute Current Visit: Yes (10) Hypophosphatemia SNOMED Code(s): 2606515 ICD Code: E83.39 - OTHER DISORDERS OF PHOSPHORUS METABOLISM Status: Acute Current Visit: Yes (11) Hypomagnesemia SNOMED Code(s): 338172148 ICD Code: E83.42 - HYPOMAGNESEMIA Status: Acute Current Visit: Yes - Patient Summary/Data Hospital Course: 11/14/2019 - Melena and hematemesis prior to admission with signs of hypovolemia on admission - Admitted on Protonix - Colonoscopy prep started - Normal coagulation work up and no blood thinners or antiplatelet therapies - Hb trending down from admission 10.6 11/15/2019 - Multiple attempts were made to cannulate a peripheral vein however, they were unsuccessful for which decision was made to place a central line - Hb trended down to 7.6 today - 1u PRBC ordered and given - EGD/Colonoscopy did not find any signs of bleeding - Hb stable 11/16/2019 - Hypokalemia improved minimally, from 3.2 to 3.4 - PO4 up from 2.2 to 2.4 - Mg down from 2.3 to 1.3 - BP trend 108-143/49-99 - HR trend 78-97x' - Switch pantoprazole to PO - Patient Instructions Diet: Usual Diet as Tolerated Activity: As Tolerated - Discharge Plan *PRESCRIPTION DRUG MONITORING PROGRAM REVIEWED*: Not Applicable *COPY OF PRESCRIPTION DRUG MONITORING REPORT IN PATIENT [place]: Not Applicable Prescriptions/Med Rec: amLODIPine Besylate [Amlodipine Besylate] 10 mg PO DAILY #30 tablet Metoprolol Tartrate 50 mg PO BID #60 tablet Pantoprazole [ProTONIX] 40 mg PO BIDAC #60 tab.cr Home Medications: Home Meds Ascorbic Acid [Vitamin C] 1,000 mg PO DAILY 02/04/14 [History] Irbesartan [Avapro] 300 mg PO BEDTIME 02/04/14 [History] Levothyroxine Sodium [Synthroid] 75 mcg PO ACBREAKFAST 02/04/14 [History] atorvaSTATin Calcium [Atorvastatin Calcium] 20 mg PO BEDTIME 02/04/14 [History] Albuterol Sulfate [Proair Hfa] 2 puff INH Q6H 08/18/18 [History] Cholecalciferol (Vitamin D3) [Vitamin D3] 400 unit PO DAILY 08/18/18 [History] Gabapentin [Neurontin] 400 mg PO TID 08/18/18 [History] Multivitamin [Zoo Chews] 1 tab PO DAILY 08/18/18 [History] Umeclidinium Brm/Vilanterol Tr [Anoro Ellipta 62.5-25 MCG] 1 puff INH DAILY [History] metFORMIN [Glucophage XR] 500 mg PO BID 08/18/18 [History] traMADol [Ultram] 50 mg PO TID 11/14/19 [History] Metoprolol Tartrate 50 mg PO BID #60 tablet 11/17/19 [Rx] Pantoprazole [ProTONIX] 40 mg PO BIDAC #60 tab.cr 11/17/19 [Rx] amLODIPine Besylate [Amlodipine Besylate] 10 mg PO DAILY #30 tablet 11/17/19 [Rx ] Oxygen Therapy Mode: Room Air Patient Handouts: Type 2 Diabetes Mellitus, Diagnosis, Adult, Heart Failure, Self Care Forms: ED Department Discharge Referrals: Nasim Melton MD [Primary Care Provider] - (You will need to call and schedule an apt. with your primary care provider in 5-7 days. ) - Discharge Summary/Plan Comment DC Time >30 min.: Yes - General Info Date of Service: 11/17/19 Subjective Update: Slept OK Tolerating diet Ambulating with minimal assistance - Patient Data Vitals - Most Recent: Last Vital Signs Temp 97.5 F 11/17/19 07:22 Pulse 80 11/17/19 07:22 Resp 20 11/17/19 07:22 BP 121/53 L 11/17/19 07:22 Pulse Ox 96 11/17/19 08:08 Weight - Most Recent: 74.253 kg - Exam General: Reports: Alert, Oriented, Cooperative, No Acute Distress HEENT: Reports: Pupils Equal, Pupils Reactive, EOMI, Mucous Membr. Moist/[place] Neck: Reports: Supple, Trachea Midline, No JVD, No Thyromegaly, +2 Carotid Pulse wo Bruit Lungs: Reports: Clear to Auscultation, Normal Respiratory Effort. Denies: Crackles, Rales, Rhonchi, Rub, Stridor, Wheezing Cardiovascular: Reports: Regular Rate, Regular Rhythm. Denies: Murmurs, Gallops , Rubs GI/Abdominal Exam: Normal Bowel Sounds, Soft, Non-Tender, Distended. No: Guarding, Rigid, Rebound Back Exam: Reports: Normal Inspection, Decreased Range of Motion. Denies: CVA Tenderness (L), CVA Tenderness (R) Extremities: Normal Inspection, Normal Range of Motion, Non-Tender, Pedal Edema , Slow Capillary Refill Skin: Reports: Warm, Dry Neurological: Reports: No New Focal Deficit, Cranial Nerves Intact Psy/Mental Status: Reports: Alert, Normal Affect Discharge Operative/Procedures - Procedures Performed CL Indication: IV access Operations/Procedure Comment: EGD and colonoscopy
[2019-11-17] MEDS ORDERED: Hydrochlorothiazide 12.5 MG Cap PO SCH (09:00)
[2019-11-17] MEDS ORDERED: Multivitamins,Therapeutic Tab PO SCH (09:00)
[2019-11-17] MEDS: traMADol 50 MG Tab PO SCH (09:31)
[2019-11-17] MEDS: amLODIPine 5 MG Tab PO SCH (09:31)
[2019-11-17] MEDS: Gabapentin 300 MG Cap PO SCH (09:32)
[2019-11-17] MEDS: Gabapentin 100 MG Cap PO SCH (09:32)
[2019-11-17] MEDS: Metoprolol Tartrate 100 MG Tab PO SCH (09:32)
== END 2019-11-17 11:41 | disposition home or self-care (01) | DRG 378 ==
LOC: JD.ED 06:03 → JD.ICU 10:01 → JD.MS 11-16 09:22
PROVIDERS: ADMIT Family Medicine; ATTEND Family Medicine
PROC: 0DJ08ZZ Inspection of Upper Intestinal Tract, Via Natural or Artificial Opening Endoscopic (ICD-10-PCS; principal; 2019-11-15)
PROC: 0DJD8ZZ Inspection of Lower Intestinal Tract, Via Natural or Artificial Opening Endoscopic (ICD-10-PCS; 2019-11-15)
PROC: 02H633Z Insertion of Infusion Device into Right Atrium, Percutaneous Approach (ICD-10-PCS; 2019-11-15)
PROC: B548ZZA Ultrasonography of Superior Vena Cava, Guidance (ICD-10-PCS; 2019-11-15)
PROC: 30233N1 Transfusion of Nonautologous Red Blood Cells into Peripheral Vein, Percutaneous Approach (ICD-10-PCS; 2019-11-15)
DX: K92.2 Gastrointestinal hemorrhage, unspecified (principal); D62 Acute posthemorrhagic anemia; E86.1 Hypovolemia; I50.33 Acute on chronic diastolic (congestive) heart failure; H54.7 Unspecified visual loss; I25.10 Atherosclerotic heart disease of native coronary artery without angina pectoris; J44.9 Chronic obstructive pulmonary disease, unspecified; E87.6 Hypokalemia; Z86.010 Personal history of colon polyps; E11.40 Type 2 diabetes mellitus with diabetic neuropathy, unspecified; E03.9 Hypothyroidism, unspecified; Z98.49 Cataract extraction status, unspecified eye; Z90.710 Acquired absence of both cervix and uterus; Z96.643 Presence of artificial hip joint, bilateral; Z96.653 Presence of artificial knee joint, bilateral; E83.39 Other disorders of phosphorus metabolism; Z79.84 Long term (current) use of oral hypoglycemic drugs; K64.4 Residual hemorrhoidal skin tags; E83.42 Hypomagnesemia; E78.00 Pure hypercholesterolemia, unspecified; I10 Essential (primary) hypertension; K59.09 Other constipation; M19.90 Unspecified osteoarthritis, unspecified site; M54.2 Cervicalgia; G89.29 Other chronic pain; E11.42 Type 2 diabetes mellitus with diabetic polyneuropathy; E78.5 Hyperlipidemia, unspecified; Z87.891 Personal history of nicotine dependence; Z79.890 Hormone replacement therapy; Z79.899 Other long term (current) drug therapy
CPT/HCPCS: 00813; 36415; 36430; 71045; 71045-26; 80048; 80053; 81001; 82009; 82272; 82962; 83735; 83880; 84100; 84443; 85007; 85014; 85018; 85025; 85027; 85610; 85730; 86850; 86900; 86901; 86922; 87040; 89055; 93005; 94640; 94761; 96365; 96376; 96523; 97110-GO; 97116-GP; 97162-GP; 97165-GO; 97530-GO; 99222; 99231; 99239; 99285-25; A9270-GY; C9113; J1815-GY; J2001; J2704; J3475; J3480; J3490; J7030; J7040; J7050; P9016; U0002

== ENCOUNTER 2020-07-26 07:05 | Observation (INO) | payer MEDICARE, BC ==
[2020-07-26] MEDS ORDERED: Sodium Chloride 0.9% 10 ML Syringe FLUSH PRN (07:35)
[2020-07-26] MEDS ORDERED: Sodium Chloride 0.9% 1,000 ML IV SCH ×2 (07:45→09:00)
--- NOTE | 2020-07-26 08:02 | EDM.PDOC ---
ED HPI GENERAL MEDICAL PROBLEM - General Chief Complaint: Fever Stated Complaint: [facility] Time Seen by Provider: 07/26/20 07:25 Source of Information: Reports: Patient, EMS, RN Notes Reviewed - History of Present Illness INITIAL COMMENTS - FREE TEXT/NARRATIVE: 74 yr old female has been in by EMS with generalized weakness, reported to not being able to "get off of the toilet" a short time ago. She did get her 2nd covid vaccination yesterday. She denies feeling ill in any way prior to that. No recent or current cough, dyspnea, chest pain, abd pain, nausea, vomiting or diarrhea. She denies voiding sx. She states that she has had chills this AM and has fever on arrival to ED with temp of 101.9. 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 - Related Data Allergies Allergy/AdvReac Type Severity Reaction Status Date / Time aspirin Allergy Severe Cannot Verified 07/26/20 07:26 Remember Home Meds: Home Meds Ascorbic Acid [Vitamin C] 1,000 mg PO DAILY 02/04/14 [History] Irbesartan [Avapro] 300 mg PO BEDTIME 02/04/14 [History] Levothyroxine Sodium [Synthroid] 75 mcg PO ACBREAKFAST 02/04/14 [History] atorvaSTATin Calcium [Atorvastatin Calcium] 20 mg PO BEDTIME 02/04/14 [History] Albuterol Sulfate [Proair Hfa] 2 puff INH Q6H 08/18/18 [History] Cholecalciferol (Vitamin D3) [Vitamin D3] 400 unit PO DAILY 08/18/18 [History] Gabapentin [Neurontin] 600 mg PO TID 08/18/18 [History] Multivitamin [Zoo Chews] 1 tab PO DAILY 08/18/18 [History] Umeclidinium Brm/Vilanterol Tr [Anoro Ellipta 62.5-25 MCG] 1 puff INH DAILY 08/18/18 [History] metFORMIN [Glucophage XR] 500 mg PO BID 08/18/18 [History] traMADol [Ultram] 50 mg PO TID 11/14/19 [History] Metoprolol Tartrate 50 mg PO BID #60 tablet 11/17/19 [Rx] Pantoprazole [ProTONIX] 40 mg PO BIDAC #60 tab.cr 11/17/19 [Rx] amLODIPine Besylate [Amlodipine Besylate] 10 mg PO DAILY #30 tablet 11/17/19 [Rx] Past Medical History HEENT History: Reports: Impaired Vision Cardiovascular History: Reports: CAD, High Cholesterol, Hypertension Respiratory History: Reports: COPD Gastrointestinal History: Reports: Chronic Constipation, Colon Polyp, Other (See Below) Other Gastrointestinal History: colitis, colon wall thickening Genitourinary History: Reports: None 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: 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 Musculoskeletal History: Reports: Back Pain, Chronic, Neck Pain, Chronic, Osteoarthritis Neurological History: Reports: Neuropathy, Diabetic Psychiatric History: Reports: None Endocrine/Metabolic History: Reports: Diabetes, Type II, Hypothyroidism, Vitamin D Deficiency Hematologic History: Reports: None Immunologic History: Reports: None Oncologic (Cancer) History: Reports: None Dermatologic History: Reports: Other (See Below) Other Dermatologic History: edema, right foot ulcer - Past Surgical History Head Surgeries/Procedures: Reports: None HEENT Surgical History: Reports: Cataract Surgery Cardiovascular Surgical History: Reports: None Respiratory Surgical History: Reports: None GI Surgical History: Reports: Colonoscopy, Hernia Repair/Other Female Surgical History: Reports: Hysterectomy Endocrine Surgical History: Reports: None Neurological Surgical History: Reports: None Musculoskeletal Surgical History: Reports: Carpal Tunnel, Hip Replacement, Knee Replacement Oncologic Surgical History: Reports: None Social & Family History - Family History Family Medical History: No Pertinent Family History - Tobacco Use Tobacco Use Status *Q: Former Tobacco User Used Tobacco, but Quit: Yes Month/Year Tobacco Last Used: 2010 - Caffeine Use Caffeine Use: Reports: Coffee - Recreational Drug Use Recreational Drug Use: No - Living Situation & Occupation Living situation: Reports: Occupation: Retired ED ROS GENERAL - Review of Systems Review Of Systems: See Below Constitutional: Reports: Fever, Chills HEENT: Denies: Sinus Problem, Throat Pain Respiratory: Denies: Shortness of Breath, Cough Cardiovascular: Denies: Chest Pain GI/Abdominal: Denies: Abdominal Pain, Diarrhea, Nausea, Vomiting Musculoskeletal: Reports: Other (generalized achiness) Neurological: Reports: Dizziness, Weakness (generalized) ED EXAM, GENERAL - Physical Exam Exam: See Below General Appearance: Alert, No Apparent Distress Eye Exam: Bilateral Eye: PERRL Throat/Mouth: Other (oral mucosa dry) Head: Atraumatic Neck: Supple Respiratory/Chest: No Respiratory Distress, Lungs Clear, Normal Breath Sounds Cardiovascular: Regular Rate, Rhythm GI/Abdominal: Soft, Non-Tender. No: Guarding Back Exam: No: CVA Tenderness (L), CVA Tenderness (R) Extremities: Normal Inspection. No: Leg Pain, Increased Warmth, Redness Neurological: Alert, Oriented, No Motor/Sensory Deficits Skin Exam: Warm, Dry, Normal Color, No Rash Course - Vital Signs Last Recorded V/S: Last Vital Signs Temp 99.4 F 07/26/20 09:35 Pulse 66 07/26/20 09:35 Resp 20 07/26/20 09:35 BP 138/100 H 07/26/20 09:35 Pulse Ox 97 07/26/20 09:35 - Orders/Labs/Meds Orders: Active Orders 24 hr Category Date Time Status Insert Carson Catheter [Insert Urinary Catheter] [OM.PC] Care 07/26/20 08:30 Ordered Stat Peripheral IV Care [RC] . DIRECTED Care 07/26/20 07:36 Active Urinary Catheter Assessment [RC] ASDIRECTED Care 07/26/20 08:30 Active CULTURE BLOOD [BC] Stat Lab 07/26/20 07:50 Received CULTURE BLOOD [BC] Stat Lab 07/26/20 08:46 Received Sodium Chloride 0.9% [Normal Saline] 1,000 ml Med 07/26/20 07:45 Active IV ONETIME Sodium Chloride 0.9% [Normal Saline] 1,000 ml Med 07/26/20 09:00 Active IV ONETIME Sodium Chloride 0.9% [Saline Flush] Med 07/26/20 07:35 Active 10 ml FLUSH ASDIRECTED PRN Peripheral IV Insertion Adult [OM.PC] Stat Oth 07/26/20 07:35 Ordered Medication Orders Sodium Chloride (Normal Saline) 1,000 mls @ 999 mls/hr IV ONETIME JANET Last Admin: 07/26/20 08:17 Dose: 999 mls/hr Documented by: NORIS Sodium Chloride (Normal Saline) 1,000 mls @ 999 mls/hr IV ONETIME JANET Last Admin: 07/26/20 09:29 Dose: 999 mls/hr Documented by: NORIS Sodium Chloride (Saline Flush) 10 ml FLUSH ASDIRECTED PRN PRN Reason: Keep Vein Open Last Admin: 07/26/20 08:17 Dose: 10 ml Documented by: NORIS Labs: Laboratory Tests 07/26/20 07/26/20 07/26/20 Range/Units 07:50 07:50 07:50 WBC 9.16 (3.98-10.04) K/mm3 RBC 4.84 (3.98-5.22) M/mm3 Hgb 13.1 D (11.2-15.7) gm/dl Hct 40.2 (34.1-44.9) % MCV 83.1 D (79.4-94.8) fl MCH 27.1 (25.6-32.2) pg MCHC 32.6 (32.2-35.5) g/dl RDW Std Deviation 44.2 (36.4-46.3) fL Plt Count 267 (182-369) K/mm3 MPV 10.7 (9.4-12.3) fl Neut % (Auto) 88.5 H (34.0-71.1) % Lymph % (Auto) 4.5 L (19.3-51.7) % [place] % (Auto) 5.8 (4.7-12.5) % Eos % (Auto) 0.2 L (0.7-5.8) Baso % (Auto) 0.1 (0.1-1.2) % Neut # (Auto) 8.11 H (1.56-6.13) K/mm3 Lymph # (Auto) 0.41 L (1.18-3.74) K/mm3 [place] # (Auto) 0.53 H (0.24-0.36) K/mm3 Eos # (Auto) 0.02 L (0.04-0.36) K/mm3 Baso # (Auto) 0.01 (0.01-0.08) K/mm3 Manual Slide Review Abnormal smear Sodium 141 (136-145) mEq/L Potassium 4.1 (3.5-5.1) mEq/L Chloride 101 (98-107) mEq/L Carbon Dioxide 25 (21-32) mEq/L Anion Gap 19.1 H (5-15) BUN 18 (7-18) mg/dL Creatinine 1.3 H (0.55-1.02) mg/dL Est Cr Clr Drug Dosing 26.86 mL/min Estimated GFR (MDRD) 40 (>60) mL/min BUN/Creatinine Ratio 13.8 L (14-18) Glucose 130 H (83-115) mg/dL Lactic Acid (0.4-2.0) mmol/L Calcium 9.8 (8.5-10.1) mg/dL Total Bilirubin 0.8 (0.2-1.0) mg/dL AST 12 L (15-37) U/L ALT 19 (14-59) U/L Alkaline Phosphatase 75 (46-116) U/L C-Reactive Protein 2.5 H* (<1.0) mg/dL Total Protein 7.4 (6.4-8.2) g/dl Albumin 3.8 (3.4-5.0) g/dl Globulin 3.6 gm/dL Albumin/Globulin Ratio 1.1 (1-2) Urine Color (Yellow) Urine Appearance (Clear) Urine pH (5.0-8.0) Ur Specific [place] (1.005-1.030) Urine Protein (Negative) Urine Glucose (UA) (Negative) Urine Ketones (Negative) Urine Occult Blood (Negative) Urine Nitrite (Negative) Urine Bilirubin (Negative) Urine Urobilinogen (0.2-1.0) Ur Leukocyte Esterase (Negative) SARS-CoV-2 RNA (GU[place]) (NEGATIVE) 07/26/20 07/26/20 07/26/20 Range/Units 07:50 08:30 09:50 WBC (3.98-10.04) K/mm3 RBC (3.98-5.22) M/mm3 Hgb (11.2-15.7) gm/dl Hct (34.1-44.9) % MCV (79.4-94.8) fl MCH (25.6-32.2) pg MCHC (32.2-35.5) g/dl RDW Std Deviation (36.4-46.3) fL Plt Count (182-369) K/mm3 MPV (9.4-12.3) fl Neut % (Auto) (34.0-71.1) % Lymph % (Auto) (19.3-51.7) % [place] % (Auto) (4.7-12.5) % Eos % (Auto) (0.7-5.8) Baso % (Auto) (0.1-1.2) % Neut # (Auto) (1.56-6.13) K/mm3 Lymph # (Auto) (1.18-3.74) K/mm3 [place] # (Auto) (0.24-0.36) K/mm3 Eos # (Auto) (0.04-0.36) K/mm3 Baso # (Auto) (0.01-0.08) K/mm3 Manual Slide Review Sodium (136-145) mEq/L Potassium (3.5-5.1) mEq/L Chloride (98-107) mEq/L Carbon Dioxide (21-32) mEq/L Anion Gap (5-15) BUN (7-18) mg/dL Creatinine (0.55-1.02) mg/dL Est Cr Clr Drug Dosing mL/min Estimated GFR (MDRD) (>60) mL/min BUN/Creatinine Ratio (14-18) Glucose (83-115) mg/dL Lactic Acid 2.7 H* (0.4-2.0) mmol/L Calcium (8.5-10.1) mg/dL Total Bilirubin (0.2-1.0) mg/dL AST (15-37) U/L ALT (14-59) U/L Alkaline Phosphatase (46-116) U/L C-Reactive Protein (<1.0) mg/dL Total Protein (6.4-8.2) g/dl Albumin (3.4-5.0) g/dl Globulin gm/dL Albumin/Globulin Ratio (1-2) Urine Color Yellow (Yellow) Urine Appearance Clear (Clear) Urine pH 6.0 (5.0-8.0) Ur Specific [place] 1.020 (1.005-1.030) Urine Protein Negative (Negative) Urine Glucose (UA) Negative (Negative) Urine Ketones Negative (Negative) Urine Occult Blood Negative (Negative) Urine Nitrite Negative (Negative) Urine Bilirubin Negative (Negative) Urine Urobilinogen 0.2 (0.2-1.0) Ur Leukocyte Esterase Negative (Negative) SARS-CoV-2 RNA (GU[place]HO) Negative (NEGATIVE) Meds: Medications Generic Name Dose Route Start Last Admin Trade Name Freq PRN Reason Stop Dose Admin Sodium Chloride 1,000 mls @ 999 mls/hr 07/26/20 07:45 07/26/20 08:17 Normal Saline IV 999 mls/hr ONETIME JANET Administration Sodium Chloride 1,000 mls @ 999 mls/hr 07/26/20 09:00 07/26/20 09:29 Normal Saline IV 999 mls/hr ONETIME JANET Administration Sodium Chloride 10 ml 07/26/20 07:35 07/26/20 08:17 Saline Flush FLUSH 10 ml ASDIRECTED PRN Administration Keep Vein Open Discontinued Medications Generic Name Dose Route Start Last Admin Trade Name Freq PRN Reason Stop Dose Admin Acetaminophen 975 mg 07/26/20 08:06 07/26/20 08:17 Tylenol PO 07/26/20 08:07 975 mg NOW ONE Administration Ceftriaxone Sodium 2 gm/ 100 mls @ 200 mls/hr 07/26/20 08:37 07/26/20 09:30 Sodium Chloride IV 07/26/20 09:06 200 mls/hr ONETIME ONE Administration - Re-Assessments/Exams Free Text/Narrative Re-Assessment/Exam: 07/26/20 08:33 lactic acid has come back at 2.7. EMS started a 500 ml NS bolus. We finished that on arrival to ED. 1 liter NS infusing at this time, will infuse a 2nd full liter after that is in for 2.5 L NS which will be more than 30 ml/KG. She is somewhat dry, dry mouth, anion gap 19.1, creatnine 1.3. CXR is normal. Cath urine pending. Will give rocephin 2 grams IV after 2nd BC obtained. 07/26/20 09:40. Pt resting comfortably. Vitals remain table. Current BP 140/82, 76. She still feels weak, more alert, from arrival, cap refill less than 2 seconds. No evidence for compromised perfusion at this time. As noted she did have her 2nd covid vaccination yesterday so very unclear if this is all reaction from the vaccination or if she is truly septic. Repeat lactic acid pe nding. Departure - Departure Time of Disposition: 11:03 Disposition: Refer to Observation Condition: Fair, Poor, Serious Clinical Impression: Generalized weakness Fever Qualifiers: Fever type: unspecified Qualified Code(s): R50.9 - Fever, unspecified - Discharge Information Sepsis Event Note (ED) - Evaluation Sepsis Screening Result: No Definite Risk - Focused Exam Vital Signs: Vital Signs Temp Temp Temp Pulse Resp BP Pulse Ox 07/26/20 09:35 99.4 F 66 20 138/100 H 97 07/26/20 08:20 100.4 F 71 24 H 158/77 H 94 L 07/26/20 08:17 101.9 F H 07/26/20 07:22 101.9 F H 74 26 H 149/48 H 93 L ED Communication - Discussed Case With (1) Discussed Case With (1): Admitting Provider (Dr Madrigal, decision to admit at about 09:45.) - My Orders Last 24 Hours: My Active Orders 07/26/20 07:35 Sodium Chloride 0.9% [Saline Flush] 10 ml FLUSH ASDIRECTED PRN Peripheral IV Insertion Adult [OM.PC] Stat 07/26/20 07:36 Peripheral IV Care [RC] . DIRECTED 07/26/20 07:45 Sodium Chloride 0.9% [Normal Saline] 1,000 ml IV ONETIME 07/26/20 07:50 CULTURE BLOOD [BC] Stat 07/26/20 08:30 Insert Carson Catheter [Insert Urinary Catheter] [OM.PC] Stat Urinary Catheter Assessment [RC] ASDIRECTED 07/26/20 08:46 CULTURE BLOOD [BC] Stat 07/26/20 09:00 Sodium Chloride 0.9% [Normal Saline] 1,000 ml IV ONETIME - Assessment/Plan Last 24 Hours: My Active Orders 07/26/20 07:35 Sodium Chloride 0.9% [Saline Flush] 10 ml FLUSH ASDIRECTED PRN Peripheral IV Insertion Adult [OM.PC] Stat 07/26/20 07:36 Peripheral IV Care [RC] . DIRECTED 07/26/20 07:45 Sodium Chloride 0.9% [Normal Saline] 1,000 ml IV ONETIME 07/26/20 07:50 CULTURE BLOOD [BC] Stat 07/26/20 08:30 Insert Carson Catheter [Insert Urinary Catheter] [OM.PC] Stat Urinary Catheter Assessment [RC] ASDIRECTED 07/26/20 08:46 CULTURE BLOOD [BC] Stat 07/26/20 09:00 Sodium Chloride 0.9% [Normal Saline] 1,000 ml IV ONETIME
[2020-07-26] MEDS ORDERED: Acetaminophen 325 MG Tab PO ONE (08:06)
[2020-07-26] MEDS ORDERED: cefTRIAXone 2 GM in Sodium Chloride 0.9% 100 ML IV ONE (08:37)
--- NOTE | 2020-07-26 08:59 | CR ---
Chest: Portable view of the chest was obtained. Comparison: Prior chest x-ray of 11/15/19 and chest x-ray of 02/04/14. Heart size and mediastinum are within normal limits. Minimal tortuosity of the thoracic aorta is seen. Lungs are clear with no acute parenchymal change. Lucency is noted along the lower left lateral chest most likely artifact. No acute osseous abnormality is appreciated. Impression: 1. Nothing acute is seen on portable chest x-ray. Diagnostic code #2
[2020-07-26 10:41] LABS: CORONAVIRUS COVID-19 NAA NEGATIVE (NEGATIVE)
[2020-07-26] MEDS ORDERED: Albuterol 6.7 GM Inhaler**OWN MED INH SCH (12:30)
[2020-07-26] MEDS ORDERED: Acetaminophen 325 MG Tab PO PRN (12:31)
[2020-07-26] MEDS ORDERED: Insulin Regular, Human 100 Units/ML 3 ML Vial SUBCUT SCH (13:00)
--- NOTE | 2020-07-26 14:11 | PCM.HP.2 ---
H&P History of Present Illness - General Date of Service: 07/26/20 Admit Problem/Dx: Admission Diagnosis/Problem Admission Diagnosis/Problem Fever of unknown origin Source of Information: Patient, Provider History Limitations: Reports: No Limitations - History of Present Illness Initial Comments - Free Text/Narative: 74 year old female presents with fever and malaise after the second shot of the SARS-COV-2 vaccine. The patient was in her normal state of health prior to the vaccination. She denies CP, SOB, fatigue, nasal congestion, change in appetite or sense of smell. The patient had a temperature, 101.9F on presentation to the ED at [facility]. Lactic acid was 2.7, she received Tylenol and IVF during the ED visit. She will be admitted for possible sepsis, query a hyperpyretic response to the SARS-COV-2 Pfizer vaccine. Elevated lactic acid d/t dehydration cf infectious source/sepsis. Onset of Symptoms: Reports: Sudden Duration of Symptoms: Reports: Hour(s):, Getting Worse Location: Reports: Generalized Quality: Reports: Ache Severity: Moderate Improves with: Reports: Medication Worsens with: Reports: None Context: Reports: Other (Vaccination??) Associated Symptoms: Reports: Malaise, Weakness - Related Data Allergies/Adverse Reactions: Allergies Allergy/AdvReac Type Severity Reaction Status Date / Time aspirin Allergy Severe Cannot Verified 07/26/20 07:26 Remember Home Medications: Home Meds Ascorbic Acid [Vitamin C] 1,000 mg PO DAILY 02/04/14 [History] Irbesartan [Avapro] 300 mg PO BEDTIME 02/04/14 [History] Levothyroxine Sodium [Synthroid] 75 mcg PO ACBREAKFAST 02/04/14 [History] atorvaSTATin Calcium [Atorvastatin Calcium] 20 mg PO BEDTIME 02/04/14 [History] Albuterol Sulfate [Proair Hfa] 2 puff INH Q6H 08/18/18 [History] Cholecalciferol (Vitamin D3) [Vitamin D3] 400 unit PO DAILY 08/18/18 [History] Gabapentin [Neurontin] 600 mg PO TID 08/18/18 [History] Multivitamin [Zoo Chews] 1 tab PO DAILY 08/18/18 [History] Umeclidinium Brm/Vilanterol Tr [Anoro Ellipta 62.5-25 MCG] 1 puff INH DAILY 08/18/18 [History] metFORMIN [Glucophage XR] 500 mg PO BID 08/18/18 [History] traMADol [Ultram] 50 mg PO TID 11/14/19 [History] Metoprolol Tartrate 50 mg PO BID #60 tablet 11/17/19 [Rx] Pantoprazole [ProTONIX] 40 mg PO BIDAC #60 tab.cr 11/17/19 [Rx] amLODIPine Besylate [Amlodipine Besylate] 10 mg PO DAILY #30 tablet 11/17/19 [Rx] Past Medical History HEENT History: Reports: Impaired Vision Cardiovascular History: Reports: CAD, High Cholesterol, Hypertension Respiratory History: Reports: COPD Gastrointestinal History: Reports: Chronic Constipation, Colon Polyp, Other (See Below) Other Gastrointestinal History: colitis, colon wall thickening Genitourinary History: Reports: None 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 Musculoskeletal History: Reports: Back Pain, Chronic, Neck Pain, Chronic, Osteoarthritis Neurological History: Reports: Neuropathy, Diabetic Psychiatric History: Reports: None Endocrine/Metabolic History: Reports: Diabetes, Type II, Hypothyroidism, Vitamin D Deficiency Hematologic History: Reports: None Immunologic History: Reports: None Oncologic (Cancer) History: Reports: None Dermatologic History: Reports: Other (See Below) Other Dermatologic History: edema, right foot ulcer - Past Surgical History Head Surgeries/Procedures: Reports: None HEENT Surgical History: Reports: Cataract Surgery Cardiovascular Surgical History: Reports: None Respiratory Surgical History: Reports: None GI Surgical History: Reports: Colonoscopy, Hernia Repair/Other Female Surgical History: Reports: Hysterectomy Endocrine Surgical History: Reports: None Neurological Surgical History: Reports: None Musculoskeletal Surgical History: Reports: Carpal Tunnel, Hip Replacement, Knee Replacement Oncologic Surgical History: Reports: None Social & Family History - Family History Family Medical History: No Pertinent Family History - Tobacco Use Tobacco Use Status *Q: Former Tobacco User Used Tobacco, but Quit: Yes Month/Year Tobacco Last Used: 2010 - Caffeine Use Caffeine Use: Reports: Coffee - Recreational Drug Use Recreational Drug Use: No - Living Situation & Occupation Living situation: Reports: Occupation: Retired H&P Review of Systems - Review of Systems: Review Of Systems: See Below General: Reports: Malaise, Weakness HEENT: Reports: No Symptoms Pulmonary: Reports: No Symptoms Cardiovascular: Reports: No Symptoms Gastrointestinal: Reports: No Symptoms Genitourinary: Reports: No Symptoms Musculoskeletal: Reports: No Symptoms Skin: Reports: No Symptoms Psychiatric: Reports: No Symptoms Neurological: Reports: No Symptoms Hematologic/Lymphatic: Reports: No Symptoms Immunologic: Reports: No Symptoms Exam - Exam Exam: See Below - Vital Signs Vital Signs: Last Vital Signs Temp -12.8 C L 07/26/20 11:15 Pulse 62 07/26/20 11:15 Resp 19 07/26/20 11:15 BP 118/65 07/26/20 11:15 Pulse Ox 92 L 07/26/20 11:15 Weight: 72.575 kg - Exam Quality Assessment: DVT Prophylaxis General: Alert, Oriented, Cooperative HEENT: EOMI, Hearing Intact, Mucosa Moist & [place], Nares Patent, Normal Nasal Septum Neck: Trachea Midline Lungs: Clear to Auscultation, Normal Respiratory Effort Cardiovascular: Regular Rate, Regular Rhythm GI/Abdominal Exam: Normal Bowel Sounds, Soft, Non-Tender, No Distention (Female) Exam: Deferred Rectal (Female) Exam: Deferred Back Exam: Normal Inspection Extremities: Normal Inspection, Slow Capillary Refill Skin: Warm Neurological: Cranial Nerves Intact, Normal Speech Neuro Extensive - Mental Status: Alert, Normal Mood/Affect Neuro Extensive - Motor, Sensory, Reflexes: CN II-XII Intact Psychiatric: Alert - Patient Data Lab Results Last 24 hrs: Laboratory Results - last 24 hr 07/26/20 07/26/20 07/26/20 Range/Units 07:50 07:50 07:50 WBC 9.16 (3.98-10.04) K/mm3 RBC 4.84 (3.98-5.22) M/mm3 Hgb 13.1 D (11.2-15.7) gm/dl Hct 40.2 (34.1-44.9) % MCV 83.1 D (79.4-94.8) fl MCH 27.1 (25.6-32.2) pg MCHC 32.6 (32.2-35.5) g/dl RDW Std Deviation 44.2 (36.4-46.3) fL Plt Count 267 (182-369) K/mm3 MPV 10.7 (9.4-12.3) fl Neut % (Auto) 88.5 H (34.0-71.1) % Lymph % (Auto) 4.5 L (19.3-51.7) % [place] % (Auto) 5.8 (4.7-12.5) % Eos % (Auto) 0.2 L (0.7-5.8) Baso % (Auto) 0.1 (0.1-1.2) % Neut # (Auto) 8.11 H (1.56-6.13) K/mm3 Lymph # (Auto) 0.41 L (1.18-3.74) K/mm3 [place] # (Auto) 0.53 H (0.24-0.36) K/mm3 Eos # (Auto) 0.02 L (0.04-0.36) K/mm3 Baso # (Auto) 0.01 (0.01-0.08) K/mm3 Manual Slide Review Abnormal smear Sodium 141 (136-145) mEq/L Potassium 4.1 (3.5-5.1) mEq/L Chloride 101 (98-107) mEq/L Carbon Dioxide 25 (21-32) mEq/L Anion Gap 19.1 H (5-15) BUN 18 (7-18) mg/dL Creatinine 1.3 H (0.55-1.02) mg/dL Est Cr Clr Drug Dosing 26.86 mL/min Estimated GFR (MDRD) 40 (>60) mL/min BUN/Creatinine Ratio 13.8 L (14-18) Glucose 130 H (83-115) mg/dL Lactic Acid (0.4-2.0) mmol/L Calcium 9.8 (8.5-10.1) mg/dL Total Bilirubin 0.8 (0.2-1.0) mg/dL AST 12 L (15-37) U/L ALT 19 (14-59) U/L Alkaline Phosphatase 75 (46-116) U/L C-Reactive Protein 2.5 H* (<1.0) mg/dL Total Protein 7.4 (6.4-8.2) g/dl Albumin 3.8 (3.4-5.0) g/dl Globulin 3.6 gm/dL Albumin/Globulin Ratio 1.1 (1-2) Urine Color (Yellow) Urine Appearance (Clear) Urine pH (5.0-8.0) Ur Specific [place] (1.005-1.030) Urine Protein (Negative) Urine Glucose (UA) (Negative) Urine Ketones (Negative) Urine Occult Blood (Negative) Urine Nitrite (Negative) Urine Bilirubin (Negative) Urine Urobilinogen (0.2-1.0) Ur Leukocyte Esterase (Negative) SARS-CoV-2 RNA (GUICHO) (NEGATIVE) 07/26/20 07/26/20 07/26/20 Range/Units 07:50 08:30 09:50 WBC (3.98-10.04) K/mm3 RBC (3.98-5.22) M/mm3 Hgb (11.2-15.7) gm/dl Hct (34.1-44.9) % MCV (79.4-94.8) fl MCH (25.6-32.2) pg MCHC (32.2-35.5) g/dl RDW Std Deviation (36.4-46.3) fL Plt Count (182-369) K/mm3 MPV (9.4-12.3) fl Neut % (Auto) (34.0-71.1) % Lymph % (Auto) (19.3-51.7) % [place]helps % (Auto) (4.7-12.5) % Eos % (Auto) (0.7-5.8) Baso % (Auto) (0.1-1.2) % Neut # (Auto) (1.56-6.13) K/mm3 Lymph # (Auto) (1.18-3.74) K/mm3 [place]helps # (Auto) (0.24-0.36) K/mm3 Eos # (Auto) (0.04-0.36) K/mm3 Baso # (Auto) (0.01-0.08) K/mm3 Manual Slide Review Sodium (136-145) mEq/L Potassium (3.5-5.1) mEq/L Chloride (98-107) mEq/L Carbon Dioxide (21-32) mEq/L Anion Gap (5-15) BUN (7-18) mg/dL Creatinine (0.55-1.02) mg/dL Est Cr Clr Drug Dosing mL/min Estimated GFR (MDRD) (>60) mL/min BUN/Creatinine Ratio (14-18) Glucose (83-115) mg/dL Lactic Acid 2.7 H* (0.4-2.0) mmol/L Calcium (8.5-10.1) mg/dL Total Bilirubin (0.2-1.0) mg/dL AST (15-37) U/L ALT (14-59) U/L Alkaline Phosphatase (46-116) U/L C-Reactive Protein (<1.0) mg/dL Total Protein (6.4-8.2) g/dl Albumin (3.4-5.0) g/dl Globulin gm/dL Albumin/Globulin Ratio (1-2) Urine Color Yellow (Yellow) Urine Appearance Clear (Clear) Urine pH 6.0 (5.0-8.0) Ur Specific [place] 1.020 (1.005-1.030) Urine Protein Negative (Negative) Urine Glucose (UA) Negative (Negative) Urine Ketones Negative (Negative) Urine Occult Blood Negative (Negative) Urine Nitrite Negative (Negative) Urine Bilirubin Negative (Negative) Urine Urobilinogen 0.2 (0.2-1.0) Ur Leukocyte Esterase Negative (Negative) SARS-CoV-2 RNA (GUICHO) Negative (NEGATIVE) 07/26/20 Range/Units 10:58 WBC (3.98-10.04) K/mm3 RBC (3.98-5.22) M/mm3 Hgb (11.2-15.7) gm/dl Hct (34.1-44.9) % MCV (79.4-94.8) fl MCH (25.6-32.2) pg MCHC (32.2-35.5) g/dl RDW Std Deviation (36.4-46.3) fL Plt Count (182-369) K/mm3 MPV (9.4-12.3) fl Neut % (Auto) (34.0-71.1) % Lymph % (Auto) (19.3-51.7) % [place] % (Auto) (4.7-12.5) % Eos % (Auto) (0.7-5.8) Baso % (Auto) (0.1-1.2) % Neut # (Auto) (1.56-6.13) K/mm3 Lymph # (Auto) (1.18-3.74) K/mm3 [place] # (Auto) (0.24-0.36) K/mm3 Eos # (Auto) (0.04-0.36) K/mm3 Baso # (Auto) (0.01-0.08) K/mm3 Manual Slide Review Sodium (136-145) mEq/L Potassium (3.5-5.1) mEq/L Chloride (98-107) mEq/L Carbon Dioxide (21-32) mEq/L Anion Gap (5-15) BUN (7-18) mg/dL Creatinine (0.55-1.02) mg/dL Est Cr Clr Drug Dosing mL/min Estimated GFR (MDRD) (>60) mL/min BUN/Creatinine Ratio (14-18) Glucose (83-115) mg/dL Lactic Acid 1.5 (0.4-2.0) mmol/L Calcium (8.5-10.1) mg/dL Total Bilirubin (0.2-1.0) mg/dL AST (15-37) U/L ALT (14-59) U/L Alkaline Phosphatase (46-116) U/L C-Reactive Protein (<1.0) mg/dL Total Protein (6.4-8.2) g/dl Albumin (3.4-5.0) g/dl Globulin gm/dL Albumin/Globulin Ratio (1-2) Urine Color (Yellow) Urine Appearance (Clear) Urine pH (5.0-8.0) Ur Specific [place] (1.005-1.030) Urine Protein (Negative) Urine Glucose (UA) (Negative) Urine Ketones (Negative) Urine Occult Blood (Negative) Urine Nitrite (Negative) Urine Bilirubin (Negative) Urine Urobilinogen (0.2-1.0) Ur Leukocyte Esterase (Negative) SARS-CoV-2 RNA (GUICHO) (NEGATIVE) Result Diagrams: 07/26/20 07:50 07/26/20 07:50 Sepsis Event Note - Evaluation Sepsis Screening Result: Severe Sepsis Risk - Focused Exam Vital Signs: Vital Signs Temp Temp Temp Pulse Resp BP Pulse Ox 07/26/20 11:15 -12.8 C L 62 19 118/65 92 L 07/26/20 09:35 37.4 C 66 20 138/100 H 97 07/26/20 08:20 38.0 C 71 24 H 158/77 H 94 L 07/26/20 08:17 38.8 C H 07/26/20 07:22 38.8 C H 74 26 H 149/48 H 93 L Problem List Initiated/Reviewed/Updated: Yes Orders Last 24hrs: Active Orders 24 hr Category Date Time Status Admission Status [Patient Status] [ADT] Routine ADT 07/26/20 09:52 Active Accu Check [Blood Glucose Check, Bedside] [RC] Care 07/26/20 12:26 Active QIDACANDBED Insert [place] Catheter [Insert Urinary Catheter] [OM.PC] Care 07/26/20 08:30 Ordered Stat Peripheral IV Care [RC] . DIRECTED Care 07/26/20 07:36 Active RT Post Treatment Assessment [RC] Click to Edit Care 07/26/20 12:25 Active RT Pre-Treatment Assessment [RC] Click to Edit Care 07/26/20 12:25 Active Urinary Catheter Assessment [RC] ASDIRECTED Care 07/26/20 08:30 Active Heart Healthy Diet [DIET] Diet 07/26/20 Lunch Active CULTURE BLOOD [BC] Stat Lab 07/26/20 07:50 Received CULTURE BLOOD [BC] Stat Lab 07/26/20 08:46 Received GLYCOSYLATED HEMOGLOBIN,HGBA1C [CHEM] Routine Lab 07/27/20 05:00 Ordered Acetaminophen [TylenoL] Med 07/26/20 12:31 Active 650 mg PO Q6H PRN Albuterol [Proventil HFA] Med 07/26/20 12:30 Active 0 gm INH Q6H Cholecalciferol (Vitamin D3) [Vitamin D3] Med 07/27/20 09:00 Active 400 unit PO DAILY Gabapentin [Neurontin] Med 07/26/20 15:00 Active 600 mg PO TID Insulin Regular, Human [HumuLIN R] Med 07/26/20 13:00 Active See Protocol SUBCUT TIDP Irbesartan [Avapro] Med 07/26/20 21:00 Active 300 mg PO BEDTIME Levothyroxine Med 07/27/20 06:00 Active 75 mcg PO ACBREAKFAST Metoprolol Tartrate [Lopressor] Med 07/26/20 21:00 Active 50 mg PO BID Multivitamin [Zoo Chews] Med 07/27/20 09:00 Active 1 tab PO DAILY Pantoprazole [ProTONIX] Med 07/26/20 16:00 Active 40 mg PO BIDAC Sodium Chloride 0.9% [Normal Saline] 1,000 ml Med 07/26/20 07:45 Active IV ONETIME Sodium Chloride 0.9% [Normal Saline] 1,000 ml Med 07/26/20 09:00 Active IV ONETIME Sodium Chloride 0.9% [Saline Flush] Med 07/26/20 07:35 Active 10 ml FLUSH ASDIRECTED PRN Umeclidinium Brm/Vilanterol Tr [Anoro Ellipta 62.5-25 Med 07/27/20 09:00 Active MCG] 1 puff INH DAILY amLODIPine [Norvasc] Med 07/27/20 09:00 Active 10 mg PO DAILY metFORMIN Med 07/26/20 21:00 Active 500 mg PO BID traMADol [Ultram] Med 07/26/20 15:00 Active 50 mg PO TID Peripheral IV Insertion Adult [OM.PC] Stat Oth 07/26/20 07:35 Ordered Resuscitation Status Routine Resus Stat 07/26/20 12:00 Ordered Medication Orders Acetaminophen (Tylenol) 650 mg PO Q6H PRN PRN Reason: Pain/Fever Albuterol (Proventil Hfa) 0 gm INH Q6H JANET Amlodipine Besylate (Norvasc) 10 mg PO DAILY JANET Gabapentin (Neurontin) 600 mg PO TID [facility] Sodium Chloride (Normal Saline) 1,000 mls @ 999 mls/hr IV ONETIME JANET Last Admin: 07/26/20 08:17 Dose: 999 mls/hr Documented by: NORIS Sodium Chloride (Normal Saline) 1,000 mls @ 999 mls/hr IV ONETIME JANET Last Admin: 07/26/20 09:29 Dose: 999 mls/hr Documented by: NORIS Insulin Human Regular (Humulin R) [facility] Protocol Levothyroxine Sodium (Levothyroxine) 75 mcg PO ACBREAKFAST [facility] Metoprolol Tartrate (Lopressor) 50 mg PO BID [facility] Cholecalciferol ( Vitamin D3) [Vitamin D3] 400 UnitOwn Med 400 unit PO BOY Y JANET Irbesartan [Avapro] (300 MgOwn Med) 300 mg PO BEDTIME [facility] Metformin Xr 500 Mg* (*Own Med) 500 mg PO BID [facility] Multivitamin [Zoo Chews] 1 TabOwn Med 1 tab PO DAILY [facility] Umeclidinium Brm/Vilanterol Tr [Anoro Ellipta 62.5-25 Mcg Own Med 1 puff INH DAILY JANET Pantoprazole Sodium (Protonix) 40 mg PO BIDAC JANET Sodium Chloride (Saline Flush) 10 ml FLUSH ASDIRECTED PRN PRN Reason: Keep Vein Open Last Admin: 07/26/20 08:17 Dose: 10 ml Documented by: NORIS Tramadol HCl (Ultram) 50 mg PO TID [facility] Assessment/Plan Comment:: Impression: SARS-COV-2 side effect, query hyperpyrexia Elevated lactic acid s/p Pfizer vaccine, shot #2 Dehydration Chronic CAD HTN HLD DM II Vitamin D deficiency Hypothyroid Plan: IVF, 1/2 NS at 75 cc/hr after 1-2 liters of IVF Antipyretic, supportive care Screen for possible infection UA, CXR, etc. Follow up labs per sepsis protocol; correct electrolytes as needed. DVT prophylaxis - Mortality Measure Prognosis:: Good
[2020-07-26] MEDS ORDERED: traMADol 50 MG Tab**OWN MED PO SCH (15:00)
[2020-07-26] MEDS: Albuterol 6.7 GM Inhaler**OWN MED INH SCH ×3 (16:01→20:23)
[2020-07-26] MEDS: traMADol 50 MG Tab PO SCH ×2 (16:10→21:18)
[2020-07-26] MEDS: GABAPENTIN 600 MG PO SCH ×2 (16:11→21:21)
[2020-07-26] MEDS: Pantoprazole 40 MG Tab.CR**OWN MED PO SCH (16:11)
[2020-07-26] MEDS: Insulin Lispro 100 Units/ML 3 ML Vial SUBCUT SCH ×2 (18:17→21:21)
[2020-07-26] MEDS: metFORMIN 500 MG Tab PO SCH (18:17)
[2020-07-26] MEDS: Metoprolol Tartrate 50 MG Tab**OWN MED PO SCH (21:20)
[2020-07-26] MEDS: IRBESARTAN 300 MG PO SCH (21:20)
[2020-07-27] MEDS: Albuterol 6.7 GM Inhaler**OWN MED INH SCH ×4 (02:37→20:34)
[2020-07-27] MEDS: Levothyroxine 75 MCG Tab**OWN MED PO SCH (06:32)
[2020-07-27] MEDS: Pantoprazole 40 MG Tab.CR**OWN MED PO SCH ×2 (06:32→15:17)
[2020-07-27] MEDS: metFORMIN 500 MG Tab PO SCH ×2 (06:33→17:17)
[2020-07-27] MEDS: Insulin Lispro 100 Units/ML 3 ML Vial SUBCUT SCH (07:37)
[2020-07-27 07:46] LABS: HEMOGLOBIN A1C 6.4 %
[2020-07-27] MEDS: Umeclidinium Brm/Vilanterol Tr [Anoro Ellipta 62.5-25 Mcg**OWN MED INH SCH (08:19)
[2020-07-27] MEDS: Cholecalciferol (Vitamin D3) 25 MCG Tab PO SCH (08:36)
[2020-07-27] MEDS: GABAPENTIN 600 MG PO SCH ×3 (08:36→20:48)
[2020-07-27] MEDS: traMADol 50 MG Tab PO SCH ×3 (08:36→20:46)
[2020-07-27] MEDS: Multivitamins,Therapeutic Tab PO SCH (08:36)
[2020-07-27] MEDS: Metoprolol Tartrate 50 MG Tab**OWN MED PO SCH ×2 (08:37→20:48)
[2020-07-27] MEDS: amLODIPine 10 MG Tab**OWN MED PO SCH (08:37)
[2020-07-27] MEDS ORDERED: Cholecalciferol (Vitamin D3) 25 MCG Tab PO SCH (09:00)
[2020-07-27] MEDS ORDERED: MULTIVITAMIN PO SCH (09:00)
--- NOTE | 2020-07-27 09:44 | PCM.DCSUM1 ---
Discharge Summary - Hospital Course HPI Initial Comments: 74 year old female presents with fever and malaise after the second shot of the SARS-COV-2 vaccine. The patient was in her normal state of health prior to the vaccination. She denies CP, SOB, fatigue, nasal congestion, change in appetite or sense of smell. The patient had a temperature, 101.9F on presentation to the ED at [facility]. Lactic acid was 2.7, she received Tylenol and IVF during the ED visit. She will be admitted for possible sepsis, query a hyperpyretic response to the SARS-COV-2 Pfizer vaccine. Elevated lactic acid d/t dehydration cf infectious source/sepsis. Diagnosis: Stroke: No - Discharge Data Discharge Date: 07/27/20 Discharge Disposition: Home, Self-Care 01 Condition: Good - Referral to Home Health Primary Care Physician: Nasim Melton MD - Patient Summary/Data Hospital Course: 74 year old female received supportive care: analgesics, antipyretics and IVF for symptoms post COVID-19 vaccine. Infectious work/spesis was unremarkable. She will be DCd to home with no change in her meds. - Patient Instructions Diet: Usual Diet as Tolerated Activity: As Tolerated Driving: May Drive Today Showering/Bathing: May Shower Notify Provider of: Fever, Increased Pain, Nausea and/or Vomiting - Discharge Plan *PRESCRIPTION DRUG MONITORING PROGRAM REVIEWED*: Not Applicable *COPY OF PRESCRIPTION DRUG MONITORING REPORT IN PATIENT [place]: Not Applicable Home Medications: Home Meds Ascorbic Acid [Vitamin C] 1,000 mg PO DAILY 02/04/14 [History] Irbesartan [Avapro] 300 mg PO BEDTIME 02/04/14 [History] Levothyroxine Sodium [Synthroid] 75 mcg PO ACBREAKFAST 02/04/14 [History] atorvaSTATin Calcium [Atorvastatin Calcium] 20 mg PO DAILY 02/04/14 [History] Albuterol Sulfate [Proair Hfa] 2 puff INH Q6H 08/18/18 [History] Cholecalciferol (Vitamin D3) [Vitamin D3] 400 unit PO DAILY 08/18/18 [History] Gabapentin [Neurontin] 600 mg PO TID 08/18/18 [History] Multivitamin [Zoo Chews] 1 tab PO DAILY 08/18/18 [History] Umeclidinium Brm/Vilanterol Tr [Anoro Ellipta 62.5-25 MCG] 1 puff INH DAILY 08/18/18 [History] metFORMIN [Glucophage XR] 500 mg PO BID 08/18/18 [History] traMADol [Ultram] 50 mg PO TID PRN 11/14/19 [History] Metoprolol Tartrate 50 mg PO BID #60 tablet 11/17/19 [Rx] Pantoprazole [ProTONIX] 40 mg PO BIDAC #60 tab.cr 11/17/19 [Rx] amLODIPine Besylate [Amlodipine Besylate] 10 mg PO DAILY #30 tablet 11/17/19 [Rx] Oxygen Therapy Mode: Room Air Forms: ED Department Discharge Referrals: Nasim Melton MD [Primary Care Provider] - - Discharge Summary/Plan Comment DC Time >30 min.: No Discharge Summary/Plan Comment: Impression: SARS-COV-2 side effect, query hyperpyrexia Elevated lactic acid s/p Pfizer vaccine, shot #2 Dehydration, resolved Chronic CAD HTN HLD DM II Vitamin D deficiency Hypothyroid Plan: IVF, 1/2 NS at 75 cc/hr after 1-2 liters of IVF Antipyretic, supportive care DVT prophylaxis DC today, no additional abnormalities noted - General Info Date of Service: 07/26/20 Functional Status: Reports: Tolerating Diet, Ambulating, Urinating - Review of Systems General: Reports: No Symptoms HEENT: Reports: No Symptoms Pulmonary: Reports: No Symptoms Cardiovascular: Reports: No Symptoms Gastrointestinal: Reports: No Symptoms Genitourinary: Reports: No Symptoms Musculoskeletal: Reports: No Symptoms Skin: Reports: No Symptoms Neurological: Reports: No Symptoms Psychiatric: Reports: No Symptoms - Patient Data Vitals - Most Recent: Last Vital Signs Temp 36.8 C 07/27/20 08:24 Pulse 81 07/27/20 08:37 Resp 14 07/27/20 08:24 BP 142/63 H 07/27/20 08:37 Pulse Ox 97 07/27/20 08:24 Weight - Most Recent: 72.802 kg I&O - Last 24 hours: Intake & Output 07/26/20 07/27/20 07/27/20 22:59 06:59 14:59 Intake Total 260 1100 Output Total 1100 1100 Balance -840 0 Lab Results - Last 24 hrs: Laboratory Results - last 24 hr 07/26/20 07/26/20 07/26/20 Range/Units 09:50 10:58 16:50 WBC (3.98-10.04) K/mm3 RBC (3.98-5.22) M/mm3 Hgb (11.2-15.7) gm/dl Hct (34.1-44.9) % MCV (79.4-94.8) fl MCH (25.6-32.2) pg MCHC (32.2-35.5) g/dl RDW Std Deviation (36.4-46.3) fL Plt Count (182-369) K/mm3 MPV (9.4-12.3) fl Neut % (Auto) (34.0-71.1) % Lymph % (Auto) (19.3-51.7) % [place] % (Auto) (4.7-12.5) % Eos % (Auto) (0.7-5.8) Baso % (Auto) (0.1-1.2) % Neut # (Auto) (1.56-6.13) K/mm3 Lymph # (Auto) (1.18-3.74) K/mm3 [place] # (Auto) (0.24-0.36) K/mm3 Eos # (Auto) (0.04-0.36) K/mm3 Baso # (Auto) (0.01-0.08) K/mm3 Sodium (136-145) mEq/L Potassium (3.5-5.1) mEq/L Chloride (98-107) mEq/L Carbon Dioxide (21-32) mEq/L Anion Gap (5-15) BUN (7-18) mg/dL Creatinine (0.55-1.02) mg/dL Est Cr Clr Drug Dosing mL/min Estimated GFR (MDRD) (>60) mL/min BUN/Creatinine Ratio (14-18) Glucose (83-115) mg/dL POC Glucose 121 H (83-110) mg/dL Hemoglobin A1c ( - 5.6) % Lactic Acid 1.5 (0.4-2.0) mmol/L Calcium (8.5-10.1) mg/dL Influenza Type A RNA Negative (NEGATIVE) Influenza Type B RNA Negative (NEGATIVE) Mycoplasma pneumon IgM (NEGATIVE) SARS-CoV-2 RNA (GUICHO) Negative (NEGATIVE) 07/26/20 07/27/20 07/27/20 Range/Units 21:17 06:25 06:30 WBC (3.98-10.04) K/mm3 RBC (3.98-5.22) M/mm3 Hgb (11.2-15.7) gm/dl Hct (34.1-44.9) % MCV (79.4-94.8) fl MCH (25.6-32.2) pg MCHC (32.2-35.5) g/dl RDW Std Deviation (36.4-46.3) fL Plt Count (182-369) K/mm3 MPV (9.4-12.3) fl Neut % (Auto) (34.0-71.1) % Lymph % (Auto) (19.3-51.7) % [place] % (Auto) (4.7-12.5) % Eos % (Auto) (0.7-5.8) Baso % (Auto) (0.1-1.2) % Neut # (Auto) (1.56-6.13) K/mm3 Lymph # (Auto) (1.18-3.74) K/mm3 [place] # (Auto) (0.24-0.36) K/mm3 Eos # (Auto) (0.04-0.36) K/mm3 Baso # (Auto) (0.01-0.08) K/mm3 Sodium (136-145) mEq/L Potassium (3.5-5.1) mEq/L Chloride (98-107) mEq/L Carbon Dioxide (21-32) mEq/L Anion Gap (5-15) BUN (7-18) mg/dL Creatinine (0.55-1.02) mg/dL Est Cr Clr Drug Dosing mL/min Estimated GFR (MDRD) (>60) mL/min BUN/Creatinine Ratio (14-18) Glucose (83-115) mg/dL POC Glucose 111 H 103 (83-110) mg/dL Hemoglobin A1c 6.4 H ( - 5.6) % Lactic Acid (0.4-2.0) mmol/L Calcium (8.5-10.1) mg/dL Influenza Type A RNA (NEGATIVE) Influenza Type B RNA (NEGATIVE) Mycoplasma pneumon IgM (NEGATIVE) SARS-CoV-2 RNA (GU[place]HO) (NEGATIVE) 07/27/20 07/27/20 Range/Units 06:30 06:30 WBC 6.18 (3.98-10.04) K/mm3 RBC 4.40 (3.98-5.22) M/mm3 Hgb 11.7 (11.2-15.7) gm/dl Hct 37.0 (34.1-44.9) % MCV 84.1 (79.4-94.8) fl MCH 26.6 (25.6-32.2) pg MCHC 31.6 L (32.2-35.5) g/dl RDW Std Deviation 44.9 (36.4-46.3) fL Plt Count 211 (182-369) K/mm3 MPV 10.1 (9.4-12.3) fl Neut % (Auto) 67.2 (34.0-71.1) % Lymph % (Auto) 15.7 L (19.3-51.7) % [place] % (Auto) 13.6 H (4.7-12.5) % Eos % (Auto) 2.3 (0.7-5.8) Baso % (Auto) 0.2 (0.1-1.2) % Neut # (Auto) 4.16 (1.56-6.13) K/mm3 Lymph # (Auto) 0.97 L (1.18-3.74) K/mm3 [place] # (Auto) 0.84 H (0.24-0.36) K/mm3 Eos # (Auto) 0.14 (0.04-0.36) K/mm3 Baso # (Auto) 0.01 (0.01-0.08) K/mm3 Sodium 138 (136-145) mEq/L Potassium 4.2 (3.5-5.1) mEq/L Chloride 102 (98-107) mEq/L Carbon Dioxide 29 (21-32) mEq/L Anion Gap 11.2 (5-15) BUN 11 (7-18) mg/dL Creatinine 1.0 (0.55-1.02) mg/dL Est Cr Clr Drug Dosing 34.91 mL/min Estimated GFR (MDRD) 54 (>60) mL/min BUN/Creatinine Ratio 11.0 L (14-18) Glucose 111 (83-115) mg/dL POC Glucose (83-110) mg/dL Hemoglobin A1c ( - 5.6) % Lactic Acid (0.4-2.0) mmol/L Calcium 9.0 (8.5-10.1) mg/dL Influenza Type A RNA (NEGATIVE) Influenza Type B RNA (NEGATIVE) Mycoplasma pneumon IgM Negative (NEGATIVE) SARS-CoV-2 RNA (GUICHO) (NEGATIVE) GRACIELA Results - Last 24 hrs: Microbiology 07/26/20 08:46 Aerobic Blood Culture - Preliminary Blood NO GROWTH AFTER 1 DAY Anaerobic Blood Culture - Preliminary NO GROWTH AFTER 1 DAY 07/26/20 07:50 Aerobic Blood Culture - Preliminary Blood NO GROWTH AFTER 1 DAY Anaerobic Blood Culture - Preliminary NO GROWTH AFTER 1 DAY Med Orders - Current: Current Medications Acetaminophen (Tylenol) 650 mg PO Q6H PRN PRN Reason: Pain/Fever Albuterol (Proventil Hfa) 0 gm INH Q6H [facility] Last Admin: 07/27/20 08:19 Dose: 2 puff Documented by: Amlodipine Besylate (Norvasc) 10 mg PO DAILY [facility] Last Admin: 07/27/20 08:37 Dose: 10 mg Documented by: Cholecalciferol (Vitamin D3) 25 mcg PO DAILY [facility] Last Admin: 07/27/20 08:36 Dose: 25 mcg Documented by: Gabapentin (Neurontin) 600 mg PO TID [facility] Last Admin: 07/27/20 08:36 Dose: 600 mg Documented by: Insulin Human Lispro (Humalog) 0 unit SUBCUT QIDACANDBED [facility]; Protocol Last Admin: 07/27/20 07:37 Dose: Not Given Documented by: Levothyroxine Sodium (Levothyroxine) 75 mcg PO ACBREAKFAST [facility] Last Admin: 07/27/20 06:32 Dose: 75 mcg Documented by: Metformin HCl (Glucophage) 500 mg PO BIDMEALS [facility] Last Admin: 07/27/20 06:33 Dose: 500 mg Documented by: Metoprolol Tartrate (Lopressor) 50 mg PO BID [facility] Last Admin: 07/27/20 08:37 Dose: 50 mg Documented by: Multivitamins (Thera) 1 each PO DAILY [facility] Last Admin: 07/27/20 08:36 Dose: 1 each Documented by: Irbesartan [Avapro] (300 MgOwn Med) 300 mg PO BEDTIME [facility] Last Admin: 07/26/20 21:20 Dose: 300 mg Documented by: Umeclidinium Brm/Vilanterol Tr [Anoro Ellipta 62.5-25 Mcg Own Med 1 puff INH DAILY [facility] Last Admin: 07/27/20 08:19 Dose: 1 puff Documented by: Pantoprazole Sodium (Protonix) 40 mg PO BIDAC [facility] Last Admin: 07/27/20 06:32 Dose: 40 mg Documented by: Sodium Chloride (Saline Flush) 10 ml FLUSH ASDIRECTED PRN PRN Reason: Keep Vein Open Last Admin: 07/26/20 08:17 Dose: 10 ml Documented by: Tramadol HCl (Ultram) 50 mg PO TID [facility] Last Admin: 07/27/20 08:36 Dose: 50 mg Documented by: Discontinued Medications Acetaminophen (Tylenol) 975 mg PO NOW ONE Stop: 07/26/20 08:07 Last Admin: 07/26/20 08:17 Dose: 975 mg Documented by: Albuterol (Proventil Hfa) 0 gm INH Q6H [facility] Last Admin: 07/26/20 14:13 Dose: Not Given Documented by: Albuterol (Proventil Hfa) 0 gm INH Q6H [facility] Last Admin: 07/26/20 16:02 Dose: Not Given Documented by: Cholecalciferol (Vitamin D3) 25 mcg PO DAILY [facility] Sodium Chloride (Normal Saline) 1,000 mls @ 999 mls/hr IV ONETIME [facility] Last Admin: 07/26/20 08:17 Dose: 999 mls/hr Documented by: Ceftriaxone Sodium 2 gm/ (Sodium Chloride) 100 mls @ 200 mls/hr IV ONETIME ONE Stop: 07/26/20 09:06 Last Admin: 07/26/20 09:30 Dose: 200 mls/hr Documented by: Sodium Chloride (Normal Saline) 1,000 mls @ 999 mls/hr IV ONETIME [facility] Last Admin: 07/26/20 09:29 Dose: 999 mls/hr Documented by: Insulin Human Regular (Humulin R) 0 unit SUBCUT TIDPC [facility]; Protocol Last Admin: 07/26/20 15:41 Dose: Not Given Documented by: Multivitamin [Zoo Chews] 1 TabOwn Med 1 tab PO DAILY [facility] Tramadol HCl (Ultram) 50 mg PO TID [facility] Last Admin: 07/26/20 16:44 Dose: Not Given Documented by: - Exam Quality Assessment: Reports: DVT Prophylaxis General: Reports: Alert, Oriented, Cooperative, No Acute Distress HEENT: Reports: Pupils Equal, Pupils Reactive, EOMI Neck: Reports: Trachea Midline Lungs: Reports: Normal Respiratory Effort Cardiovascular: Reports: Regular Rate, Regular Rhythm GI/Abdominal Exam: Normal Bowel Sounds, Soft, Non-Tender (Female) Exam: Deferred Rectal (Female) Exam: Deferred Back Exam: Reports: Normal Inspection Extremities: Normal Inspection, Normal Range of Motion, Non-Tender, Normal Capillary Refill Skin: Reports: Warm Neurological: Reports: No New Focal Deficit, Normal Speech Psy/Mental Status: Reports: Alert, Normal Affect, Normal Mood
--- NOTE | 2020-07-27 11:12 | PCM.PN ---
- General Info Date of Service: 07/27/20 Subjective Update: 74 year old feamle with DC cancelled after change in mental status associated with elevated temperature. She had a head CT after the patient was more confused. CT of the head was unremarkable for CVA, however, she has left sided mastoiditis. CXR was unremarkable. Augmentin has been started. Functional Status: Reports: Urinating - Review of Systems General: Reports: Fever, Weakness HEENT: Reports: No Symptoms Pulmonary: Reports: No Symptoms Cardiovascular: Reports: No Symptoms Gastrointestinal: Reports: No Symptoms Genitourinary: Reports: No Symptoms Musculoskeletal: Reports: No Symptoms Skin: Reports: No Symptoms Neurological: Reports: Confusion Psychiatric: Reports: No Symptoms - Patient Data Vitals - Most Recent: Last Vital Signs Temp 38.7 C H 07/27/20 11:06 Pulse 81 07/27/20 08:37 Resp 14 07/27/20 08:24 BP 142/63 H 07/27/20 08:37 Pulse Ox 97 07/27/20 08:24 Weight - Most Recent: 72.802 kg I&O - Last 24 Hours: Intake & Output 07/26/20 07/27/20 07/27/20 22:59 06:59 14:59 Intake Total 260 1100 Output Total 1100 1100 Balance -840 0 Lab Results Last 24 Hours: Laboratory Results - last 24 hr 07/26/20 07/26/20 07/26/20 Range/Units 09:50 10:58 16:50 WBC (3.98-10.04) K/mm3 RBC (3.98-5.22) M/mm3 Hgb (11.2-15.7) gm/dl Hct (34.1-44.9) % MCV (79.4-94.8) fl MCH (25.6-32.2) pg MCHC (32.2-35.5) g/dl RDW Std Deviation (36.4-46.3) fL Plt Count (182-369) K/mm3 MPV (9.4-12.3) fl Neut % (Auto) (34.0-71.1) % Lymph % (Auto) (19.3-51.7) % [place] % (Auto) (4.7-12.5) % Eos % (Auto) (0.7-5.8) Baso % (Auto) (0.1-1.2) % Neut # (Auto) (1.56-6.13) K/mm3 Lymph # (Auto) (1.18-3.74) K/mm3 [place] # (Auto) (0.24-0.36) K/mm3 Eos # (Auto) (0.04-0.36) K/mm3 Baso # (Auto) (0.01-0.08) K/mm3 Sodium (136-145) mEq/L Potassium (3.5-5.1) mEq/L Chloride (98-107) mEq/L Carbon Dioxide (21-32) mEq/L Anion Gap (5-15) BUN (7-18) mg/dL Creatinine (0.55-1.02) mg/dL Est Cr Clr Drug Dosing mL/min Estimated GFR (MDRD) (>60) mL/min BUN/Creatinine Ratio (14-18) Glucose (83-115) mg/dL POC Glucose 121 H (83-110) mg/dL Hemoglobin A1c ( - 5.6) % Lactic Acid 1.5 (0.4-2.0) mmol/L Calcium (8.5-10.1) mg/dL Influenza Type A RNA Negative (NEGATIVE) Influenza Type B RNA Negative (NEGATIVE) Mycoplasma pneumon IgM (NEGATIVE) SARS-CoV-2 RNA (GUICHO) Negative (NEGATIVE) 07/26/20 07/27/20 07/27/20 Range/Units 21:17 06:25 06:30 WBC (3.98-10.04) K/mm3 RBC (3.98-5.22) M/mm3 Hgb (11.2-15.7) gm/dl Hct (34.1-44.9) % MCV (79.4-94.8) fl MCH (25.6-32.2) pg MCHC (32.2-35.5) g/dl RDW Std Deviation (36.4-46.3) fL Plt Count (182-369) K/mm3 MPV (9.4-12.3) fl Neut % (Auto) (34.0-71.1) % Lymph % (Auto) (19.3-51.7) % [place] % (Auto) (4.7-12.5) % Eos % (Auto) (0.7-5.8) Baso % (Auto) (0.1-1.2) % Neut # (Auto) (1.56-6.13) K/mm3 Lymph # (Auto) (1.18-3.74) K/mm3 [place] # (Auto) (0.24-0.36) K/mm3 Eos # (Auto) (0.04-0.36) K/mm3 Baso # (Auto) (0.01-0.08) K/mm3 Sodium (136-145) mEq/L Potassium (3.5-5.1) mEq/L Chloride (98-107) mEq/L Carbon Dioxide (21-32) mEq/L Anion Gap (5-15) BUN (7-18) mg/dL Creatinine (0.55-1.02) mg/dL Est Cr Clr Drug Dosing mL/min Estimated GFR (MDRD) (>60) mL/min BUN/Creatinine Ratio (14-18) Glucose (83-115) mg/dL POC Glucose 111 H 103 (83-110) mg/dL Hemoglobin A1c 6.4 H ( - 5.6) % Lactic Acid (0.4-2.0) mmol/L Calcium (8.5-10.1) mg/dL Influenza Type A RNA (NEGATIVE) Influenza Type B RNA (NEGATIVE) Mycoplasma pneumon IgM (NEGATIVE) SARS-CoV-2 RNA (GUICHO) (NEGATIVE) 07/27/20 07/27/20 07/27/20 Range/Units 06:30 06:30 10:55 WBC 6.18 (3.98-10.04) K/mm3 RBC 4.40 (3.98-5.22) M/mm3 Hgb 11.7 (11.2-15.7) gm/dl Hct 37.0 (34.1-44.9) % MCV 84.1 (79.4-94.8) fl MCH 26.6 (25.6-32.2) pg MCHC 31.6 L (32.2-35.5) g/dl RDW Std Deviation 44.9 (36.4-46.3) fL Plt Count 211 (182-369) K/mm3 MPV 10.1 (9.4-12.3) fl Neut % (Auto) 67.2 (34.0-71.1) % Lymph % (Auto) 15.7 L (19.3-51.7) % [place] % (Auto) 13.6 H (4.7-12.5) % Eos % (Auto) 2.3 (0.7-5.8) Baso % (Auto) 0.2 (0.1-1.2) % Neut # (Auto) 4.16 (1.56-6.13) K/mm3 Lymph # (Auto) 0.97 L (1.18-3.74) K/mm3 [place] # (Auto) 0.84 H (0.24-0.36) K/mm3 Eos # (Auto) 0.14 (0.04-0.36) K/mm3 Baso # (Auto) 0.01 (0.01-0.08) K/mm3 Sodium 138 (136-145) mEq/L Potassium 4.2 (3.5-5.1) mEq/L Chloride 102 (98-107) mEq/L Carbon Dioxide 29 (21-32) mEq/L Anion Gap 11.2 (5-15) BUN 11 (7-18) mg/dL Creatinine 1.0 (0.55-1.02) mg/dL Est Cr Clr Drug Dosing 34.91 mL/min Estimated GFR (MDRD) 54 (>60) mL/min BUN/Creatinine Ratio 11.0 L (14-18) Glucose 111 (83-115) mg/dL POC Glucose 126 H (83-110) mg/dL Hemoglobin A1c ( - 5.6) % Lactic Acid (0.4-2.0) mmol/L Calcium 9.0 (8.5-10.1) mg/dL Influenza Type A RNA (NEGATIVE) Influenza Type B RNA (NEGATIVE) Mycoplasma pneumon IgM Negative (NEGATIVE) SARS-CoV-2 RNA (GUICHO) (NEGATIVE) Francisco Javier Results Last 24 Hours: Microbiology 07/26/20 08:46 Aerobic Blood Culture - Preliminary Blood NO GROWTH AFTER 1 DAY Anaerobic Blood Culture - Preliminary NO GROWTH AFTER 1 DAY 07/26/20 07:50 Aerobic Blood Culture - Preliminary Blood NO GROWTH AFTER 1 DAY Anaerobic Blood Culture - Preliminary NO GROWTH AFTER 1 DAY Med Orders - Current: Current Medications Acetaminophen (Tylenol) 650 mg PO Q6H PRN PRN Reason: Pain/Fever Last Admin: 07/27/20 11:06 Dose: 650 mg Documented by: Albuterol (Proventil Hfa) 0 gm INH Q6H [facility] Last Admin: 07/27/20 08:19 Dose: 2 puff Documented by: Amlodipine Besylate (Norvasc) 10 mg PO DAILY [facility] Last Admin: 07/27/20 08:37 Dose: 10 mg Documented by: Cholecalciferol (Vitamin D3) 25 mcg PO DAILY [facility] Last Admin: 07/27/20 08:36 Dose: 25 mcg Documented by: Gabapentin (Neurontin) 600 mg PO TID [facility] Last Admin: 07/27/20 08:36 Dose: 600 mg Documented by: Insulin Human Lispro (Humalog) 0 unit SUBCUT QIDACANDBED [facility]; Protocol Levothyroxine Sodium (Levothyroxine) 75 mcg PO ACBREAKFAST [facility] Last Admin: 07/27/20 06:32 Dose: 75 mcg Documented by: Metformin HCl (Glucophage) 500 mg PO BIDMEALS [facility] Last Admin: 07/27/20 06:33 Dose: 500 mg Documented by: Metoprolol Tartrate (Lopressor) 50 mg PO BID [facility] Last Admin: 07/27/20 08:37 Dose: 50 mg Documented by: Multivitamins (Thera) 1 each PO DAILY [facility] Last Admin: 07/27/20 08:36 Dose: 1 each Documented by: Irbesartan [Avapro] (300 MgOwn Med) 300 mg PO BEDTIME [facility] Last Admin: 07/26/20 21:20 Dose: 300 mg Documented by: Umeclidinium Brm/Vilanterol Tr [Anoro Ellipta 62.5-25 Mcg Own Med 1 puff INH DAILY [facility] Last Admin: 07/27/20 08:19 Dose: 1 puff Documented by: Pantoprazole Sodium (Protonix) 40 mg PO BIDAC [facility] Last Admin: 07/27/20 06:32 Dose: 40 mg Documented by: Sodium Chloride (Saline Flush) 10 ml FLUSH ASDIRECTED PRN PRN Reason: Keep Vein Open Last Admin: 07/26/20 08:17 Dose: 10 ml Documented by: Tramadol HCl (Ultram) 50 mg PO TID [facility] Last Admin: 07/27/20 08:36 Dose: 50 mg Documented by: Discontinued Medications Acetaminophen (Tylenol) 975 mg PO NOW ONE Stop: 07/26/20 08:07 Last Admin: 07/26/20 08:17 Dose: 975 mg Documented by: Albuterol (Proventil Hfa) 0 gm INH Q6H [facility] Last Admin: 07/26/20 14:13 Dose: Not Given Documented by: Albuterol (Proventil Hfa) 0 gm INH Q6H [facility] Last Admin: 07/26/20 16:02 Dose: Not Given Documented by: Cholecalciferol (Vitamin D3) 25 mcg PO DAILY [facility] Sodium Chloride (Normal Saline) 1,000 mls @ 999 mls/hr IV ONETIME [facility] Last Admin: 07/26/20 08:17 Dose: 999 mls/hr Documented by: Ceftriaxone Sodium 2 gm/ (Sodium Chloride) 100 mls @ 200 mls/hr IV ONETIME ONE Stop: 07/26/20 09:06 Last Admin: 07/26/20 09:30 Dose: 200 mls/hr Documented by: Sodium Chloride (Normal Saline) 1,000 mls @ 999 mls/hr IV ONETIME [facility] Last Admin: 07/26/20 09:29 Dose: 999 mls/hr Documented by: Insulin Human Lispro (Humalog) 0 unit SUBCUT QIDACANDBED [facility]; Protocol Last Admin: 07/27/20 07:37 Dose: Not Given Documented by: Insulin Human Regular (Humulin R) 0 unit SUBCUT TIDPC [facility]; Protocol Last Admin: 07/26/20 15:41 Dose: Not Given Documented by: Multivitamin [Zoo Chews] 1 TabOwn Med 1 tab PO DAILY [facility] Tramadol HCl (Ultram) 50 mg PO TID [facility] Last Admin: 07/26/20 16:44 Dose: Not Given Documented by: - Exam Quality Assessment: DVT Prophylaxis General: Alert, Oriented, Cooperative, No Acute Distress HEENT: Pupils Equal, Pupils Reactive, EOMI Neck: Trachea Midline, No JVD Lungs: Normal Respiratory Effort Cardiovascular: Regular Rate, Regular Rhythm GI/Abdominal Exam: Normal Bowel Sounds, Soft, Non-Tender, No Distention (Female) Exam: Deferred Back Exam: Normal Inspection Extremities: Normal Inspection, Normal Capillary Refill Skin: Warm Neurological: No New Focal Deficit, Normal Gait, Normal Speech Psy/Mental Status: Alert, Normal Affect, Normal Mood - Patient Data Lab Results Last 24 hrs: Laboratory Results - last 24 hr 07/26/20 07/26/20 07/26/20 Range/Units 09:50 10:58 16:50 WBC (3.98-10.04) K/mm3 RBC (3.98-5.22) M/mm3 Hgb (11.2-15.7) gm/dl Hct (34.1-44.9) % MCV (79.4-94.8) fl MCH (25.6-32.2) pg MCHC (32.2-35.5) g/dl RDW Std Deviation (36.4-46.3) fL Plt Count (182-369) K/mm3 MPV (9.4-12.3) fl Neut % (Auto) (34.0-71.1) % Lymph % (Auto) (19.3-51.7) % [place] % (Auto) (4.7-12.5) % Eos % (Auto) (0.7-5.8) Baso % (Auto) (0.1-1.2) % Neut # (Auto) (1.56-6.13) K/mm3 Lymph # (Auto) (1.18-3.74) K/mm3 [place] # (Auto) (0.24-0.36) K/mm3 Eos # (Auto) (0.04-0.36) K/mm3 Baso # (Auto) (0.01-0.08) K/mm3 Sodium (136-145) mEq/L Potassium (3.5-5.1) mEq/L Chloride (98-107) mEq/L Carbon Dioxide (21-32) mEq/L Anion Gap (5-15) BUN (7-18) mg/dL Creatinine (0.55-1.02) mg/dL Est Cr Clr Drug Dosing mL/min Estimated GFR (MDRD) (>60) mL/min BUN/Creatinine Ratio (14-18) Glucose (83-115) mg/dL POC Glucose 121 H (83-110) mg/dL Hemoglobin A1c ( - 5.6) % Lactic Acid 1.5 (0.4-2.0) mmol/L Calcium (8.5-10.1) mg/dL Influenza Type A RNA Negative (NEGATIVE) Influenza Type B RNA Negative (NEGATIVE) Mycoplasma pneumon IgM (NEGATIVE) SARS-CoV-2 RNA (GUICHO) Negative (NEGATIVE) 07/26/20 07/27/20 07/27/20 Range/Units 21:17 06:25 06:30 WBC (3.98-10.04) K/mm3 RBC (3.98-5.22) M/mm3 Hgb (11.2-15.7) gm/dl Hct (34.1-44.9) % MCV (79.4-94.8) fl MCH (25.6-32.2) pg MCHC (32.2-35.5) g/dl RDW Std Deviation (36.4-46.3) fL Plt Count (182-369) K/mm3 MPV (9.4-12.3) fl Neut % (Auto) (34.0-71.1) % Lymph % (Auto) (19.3-51.7) % [place] % (Auto) (4.7-12.5) % Eos % (Auto) (0.7-5.8) Baso % (Auto) (0.1-1.2) % Neut # (Auto) (1.56-6.13) K/mm3 Lymph # (Auto) (1.18-3.74) K/mm3 [place] # (Auto) (0.24-0.36) K/mm3 Eos # (Auto) (0.04-0.36) K/mm3 Baso # (Auto) (0.01-0.08) K/mm3 Sodium (136-145) mEq/L Potassium (3.5-5.1) mEq/L Chloride (98-107) mEq/L Carbon Dioxide (21-32) mEq/L Anion Gap (5-15) BUN (7-18) mg/dL Creatinine (0.55-1.02) mg/dL Est Cr Clr Drug Dosing mL/min Estimated GFR (MDRD) (>60) mL/min BUN/Creatinine Ratio (14-18) Glucose (83-115) mg/dL POC Glucose 111 H 103 (83-110) mg/dL Hemoglobin A1c 6.4 H ( - 5.6) % Lactic Acid (0.4-2.0) mmol/L Calcium (8.5-10.1) mg/dL Influenza Type A RNA (NEGATIVE) Influenza Type B RNA (NEGATIVE) Mycoplasma pneumon IgM (NEGATIVE) SARS-CoV-2 RNA (GUICHO) (NEGATIVE) 07/27/20 07/27/20 07/27/20 Range/Units 06:30 06:30 10:55 WBC 6.18 (3.98-10.04) K/mm3 RBC 4.40 (3.98-5.22) M/mm3 Hgb 11.7 (11.2-15.7) gm/dl Hct 37.0 (34.1-44.9) % MCV 84.1 (79.4-94.8) fl MCH 26.6 (25.6-32.2) pg MCHC 31.6 L (32.2-35.5) g/dl RDW Std Deviation 44.9 (36.4-46.3) fL Plt Count 211 (182-369) K/mm3 MPV 10.1 (9.4-12.3) fl Neut % (Auto) 67.2 (34.0-71.1) % Lymph % (Auto) 15.7 L (19.3-51.7) % [place] % (Auto) 13.6 H (4.7-12.5) % Eos % (Auto) 2.3 (0.7-5.8) Baso % (Auto) 0.2 (0.1-1.2) % Neut # (Auto) 4.16 (1.56-6.13) K/mm3 Lymph # (Auto) 0.97 L (1.18-3.74) K/mm3 [place] # (Auto) 0.84 H (0.24-0.36) K/mm3 Eos # (Auto) 0.14 (0.04-0.36) K/mm3 Baso # (Auto) 0.01 (0.01-0.08) K/mm3 Sodium 138 (136-145) mEq/L Potassium 4.2 (3.5-5.1) mEq/L Chloride 102 (98-107) mEq/L Carbon Dioxide 29 (21-32) mEq/L Anion Gap 11.2 (5-15) BUN 11 (7-18) mg/dL Creatinine 1.0 (0.55-1.02) mg/dL Est Cr Clr Drug Dosing 34.91 mL/min Estimated GFR (MDRD) 54 (>60) mL/min BUN/Creatinine Ratio 11.0 L (14-18) Glucose 111 (83-115) mg/dL POC Glucose 126 H (83-110) mg/dL Hemoglobin A1c ( - 5.6) % Lactic Acid (0.4-2.0) mmol/L Calcium 9.0 (8.5-10.1) mg/dL Influenza Type A RNA (NEGATIVE) Influenza Type B RNA (NEGATIVE) Mycoplasma pneumon IgM Negative (NEGATIVE) SARS-CoV-2 RNA (GUICHO) (NEGATIVE) Result Diagrams: 07/27/20 06:30 07/27/20 06:30 Francisco Javier Results Last 24 hrs: Microbiology 07/26/20 08:46 Aerobic Blood Culture - Preliminary Blood NO GROWTH AFTER 1 DAY Anaerobic Blood Culture - Preliminary NO GROWTH AFTER 1 DAY 07/26/20 07:50 Aerobic Blood Culture - Preliminary Blood NO GROWTH AFTER 1 DAY Anaerobic Blood Culture - Preliminary NO GROWTH AFTER 1 DAY Sepsis Event Note - Evaluation Sepsis Screening Result: No Definite Risk - Focused Exam Vital Signs: Vital Signs Temp Pulse Resp BP Pulse Ox Pulse Ox 07/27/20 11:06 38.7 C H 07/27/20 08:37 81 142/63 H 07/27/20 08:35 142/63 H 07/27/20 08:24 36.8 C 81 14 97 07/27/20 04:08 36.8 C 68 16 126/65 93 L 07/27/20 02:39 92 L 07/27/20 00:11 36.8 C 66 18 124/87 92 L - Problem List Review Problem List Initiated/Reviewed/Updated: Yes - My Orders Last 24 Hours: My Active Orders 07/26/20 Lunch Heart Healthy Diet [DIET] 07/26/20 12:00 Resuscitation Status Routine 07/26/20 12:26 Accu Check [Blood Glucose Check, Bedside] [RC] QIDACANDBED 07/26/20 12:31 Acetaminophen [TylenoL] 650 mg PO Q6H PRN 07/26/20 15:00 Gabapentin [Neurontin] 600 mg PO TID traMADol [Ultram] 50 mg PO TID 07/26/20 16:00 Pantoprazole [ProTONIX] 40 mg PO BIDAC 07/26/20 17:00 metFORMIN [Glucophage] 500 mg PO BIDMEALS 07/26/20 18:55 Isolation [COMM] Routine 07/26/20 21:00 Albuterol [Proventil HFA] 0 gm INH Q6H Irbesartan [Avapro] 300 mg PO BEDTIME Metoprolol Tartrate [Lopressor] 50 mg PO BID 07/27/20 06:00 Levothyroxine 75 mcg PO ACBREAKFAST 07/27/20 09:00 Cholecalciferol (Vitamin D3) [Vitamin D3] 25 mcg PO DAILY Multivitamins,Therapeutic [Thera] 1 each PO DAILY Umeclidinium Brm/Vilanterol Tr [Anoro Ellipta 62.5-25 MCG] 1 puff INH DAILY amLODIPine [Norvasc] 10 mg PO DAILY 07/27/20 10:30 Head wo Cont [CT] Routine 07/27/20 11:00 Insulin Lispro [HumaLOG] 0 unit SUBCUT QIDACANDBED 07/27/20 11:11 CXR [Chest 1V Frontal] [CR] Routine 07/28/20 05:00 BMP [BASIC METABOLIC PANEL,BMP] [CHEM] DAILY - Plan Plan:: Impression: AMS d/t elevated temperature; resolved after temperature responded to Tylenol Left sided mastoiditis CT of head negative for CVA SARS-COV-2 side effect, query hyperpyrexia Elevated lactic acid s/p Pfizer vaccine, shot #2 Dehydration, resolved. Chronic CAD HTN HLD DM II Vitamin D deficiency Hypothyroid Plan: Augmentin started for Mastoiditis. Antipyretic, supportive care Repeat BCs were obtained with elevated temp. Follow up labs per sepsis protocol; correct electrolytes as needed. DVT prophylaxis
--- NOTE | 2020-07-27 12:08 | CT ---
Head CT Technique: Multiple axial sections through the brain were obtained. Intravenous contrast was not utilized. Reconstructed coronal and sagittal images were obtained. Comparison: No prior intracranial imaging is available. Findings: Ventricles along with basal cisterns and sulci over the is the convexities are moderately prominent. Diffuse diminished density is noted within the periventricular and subcortical white matter which has the appearance of small vessel ischemic demyelination change. No other abnormal parenchymal densities are seen. No evidence of intracranial hemorrhage. No midline shift or mass-effect is seen. Mild atherosclerotic calcification is seen within the carotid siphon and within the vertebral vessels. Mucosal thickening is seen within the left mastoid sinus. Right mastoid sinus is clear. No acute paranasal sinus findings are seen. No acute osseous abnormality is appreciated within the calvarium. Impression: 1. Mucosal thickening within the left mastoid sinus. Please exclude any symptoms of left-sided mastoiditis. 2. Senescent change as noted above. 3. No acute abnormality is seen intracranially. Diagnostic code #3
--- NOTE | 2020-07-27 12:08 | CR ---
Chest: Portable view of the chest was obtained. Comparison: Prior chest x-ray of 07/26/20. Heart size is within normal limits. Slight prominence of the right mediastinum is seen believed to be due to rotation. Lungs are clear with no acute parenchymal change. No acute bony abnormality is appreciated. Impression: 1. Nothing acute is seen on portable chest x-ray. Diagnostic code #1
[2020-07-27] MEDS ORDERED: Enoxaparin 40 MG/0.4 ML Syringe SUBCUT SCH (13:00)
[2020-07-27] MEDS: Amoxicillin/Clavulanate K 500-125 MG Tab PO SCH ×2 (15:16→20:46)
[2020-07-27] MEDS: IRBESARTAN 300 MG PO SCH (20:47)
[2020-07-28] MEDS: Albuterol 6.7 GM Inhaler**OWN MED INH SCH ×2 (02:50→09:10)
[2020-07-28] MEDS: Levothyroxine 75 MCG Tab**OWN MED PO SCH (05:48)
[2020-07-28] MEDS: Pantoprazole 40 MG Tab.CR**OWN MED PO SCH (05:48)
[2020-07-28] MEDS: metFORMIN 500 MG Tab PO SCH (06:04)
[2020-07-28 07:05] LABS: VITAMIN D,25-HYDROXY 110.4 ng/ml (30.0-100.0)
[2020-07-28] MEDS ORDERED: Magnesium Sulfate/Water 2 GM/50 ML BAG IV ONE (08:00)
--- NOTE | 2020-07-28 08:28 | CR ---
Chest: PA and lateral views of the chest were obtained. Comparison: Prior chest x-ray of 07/27/20. Heart size and mediastinum are within normal limits. Scattered degenerative change is seen within the spine with mild scoliosis. Anterior wedge deformity is seen at the thoracolumbar junction which is most likely old. Very slight atelectasis is noted within both lung bases. Lungs otherwise are clear. Impression: 1. Findings as described above believed to be incidental. 2. Nothing acute is otherwise seen. Diagnostic code #2
[2020-07-28] MEDS: traMADol 50 MG Tab PO SCH (08:39)
[2020-07-28] MEDS: Multivitamins,Therapeutic Tab PO SCH (08:41)
[2020-07-28] MEDS: Cholecalciferol (Vitamin D3) 25 MCG Tab PO SCH (08:42)
[2020-07-28] MEDS: Amoxicillin/Clavulanate K 500-125 MG Tab PO SCH (09:00)
[2020-07-28] MEDS: Metoprolol Tartrate 50 MG Tab**OWN MED PO SCH (09:01)
[2020-07-28] MEDS: GABAPENTIN 600 MG PO SCH (09:03)
[2020-07-28] MEDS: amLODIPine 10 MG Tab**OWN MED PO SCH (09:04)
[2020-07-28] MEDS: Umeclidinium Brm/Vilanterol Tr [Anoro Ellipta 62.5-25 Mcg**OWN MED INH SCH (09:10)
--- NOTE | 2020-07-28 11:50 | PCM.DCSUM1 ---
Discharge Summary - Hospital Course HPI Initial Comments: 74 year old female presents with fever and malaise after the second shot of the SARS-COV-2 vaccine. The patient was in her normal state of health prior to the vaccination. She denies CP, SOB, fatigue, nasal congestion, change in appetite or sense of smell. The patient had a temperature, 101.9F on presentation to the ED at [facility], [place]. Lactic acid was 2.7, she received Tylenol and IVF during the ED visit. She will be admitted for possible sepsis, query a hyperpyretic response to the SARS-COV-2 Pfizer vaccine. Elevated lactic acid d/t dehydration cf infectious source/sepsis. Diagnosis: Stroke: No - Discharge Data Discharge Date: 07/28/20 (Admit date: 07/26/20) Discharge Disposition: Home, Self-Care 01 Condition: Good - Referral to Home Health Primary Care Physician: Nasim Melton MD - Discharge Diagnosis/Problem(s) (1) Mastoiditis of left side SNOMED Code(s): 0035822389157211 ICD Code: H70.92 - UNSPECIFIED MASTOIDITIS, LEFT EAR Status: Acute Priority: High Current Visit: Yes (2) Fever SNOMED Code(s): 041072139 ICD Code: R50.9 - FEVER, UNSPECIFIED Status: Resolved Priority: High Current Visit: Yes Qualifiers: Fever type: unspecified Qualified Code(s): R50.9 - Fever, unspecified (3) Generalized weakness SNOMED Code(s): 94615185 ICD Code: R53.1 - WEAKNESS Status: Resolved Priority: High Current Visit: Yes (4) COPD (chronic obstructive pulmonary disease) SNOMED Code(s): 71959072 ICD Code: J44.9 - CHRONIC OBSTRUCTIVE PULMONARY DISEASE, UNSPECIFIED Status: Chronic Priority: Low Current Visit: No Qualifiers: COPD type: unspecified COPD Qualified Code(s): J44.9 - Chronic obstructive pulmonary disease, unspecified (5) Congestive heart failure SNOMED Code(s): 98829467 ICD Code: I50.9 - HEART FAILURE, UNSPECIFIED Status: Chronic Priority: Low Current Visit: No Qualifiers: Heart failure type: diastolic Heart failure chronicity: acute on chronic Qualified Code(s): I50.33 - Acute on chronic diastolic (congestive) heart failure (6) Coronary artery disease SNOMED Code(s): 96683670 ICD Code: I25.10 - ATHSCL HEART DISEASE OF [place] CORONARY ARTERY W/O ANG PCTRS Status: Chronic Priority: Low Current Visit: No Qualifiers: Coronary Disease-Associated Artery/Lesion type: unspecified vessel or lesion type [place] vs. transplanted heart: [place] heart Associated angina: angina presence unspecified Qualified Code(s): I25.10 - Atherosclerotic heart disease of [place] coronary artery without angina pectoris (7) Diabetes mellitus SNOMED Code(s): 71613038 ICD Code: E11.9 - TYPE 2 DIABETES MELLITUS WITHOUT COMPLICATIONS Status: Chronic Priority: Low Current Visit: No Qualifiers: Diabetes mellitus type: other specified (including [place]) Diabetes mellitus terminal block assembler insulin use: without terminal block assembler use Diabetes mellitus complication status: with other specified complication Qualified Code(s): E13.69 - Other specified diabetes mellitus with other specified complication (8) Former smoker SNOMED Code(s): 2962472 ICD Code: Z87.891 - PERSONAL HISTORY OF NICOTINE DEPENDENCE Status: Chronic Priority: Low Current Visit: No (9) Hypomagnesemia SNOMED Code(s): 402252298 ICD Code: E83.42 - HYPOMAGNESEMIA Status: Acute Priority: High Current Visit: Yes - Patient Summary/Data Labs Pending at D/C: None Recommended Follow-up Testing/Procedures: Follow-up with primary care provider within 7-10 days of discharge, sooner if needed. -Recommend repeat CBC, CMP, Magnesium at that visit. Consider ENT follow-up if warranted Hospital Course: 34-year-old female admitted observation status due to fever of unknown origin. She did receive the 19 vaccine recently and it was suspected that that may be the cause. Initially chest x-ray and UA were negative. Plan was to discharge home however patient spiked another fever and did have altered mental status. She was given Tylenol and her fever did reside which improved her mental status. Head CT was obtained showing left-sided mastoiditis, senescent change, and nothing else acute. No indication of any bone involvement and physical exam showed no concerning signs. She was started on Augmentin and this will be continued twice daily for a total of 10 days of treatment. Blood cultures have been negative. Magnesium was low and was supplemented. Patient was requiring oxygen and that is thought to be the result of sepsis protocol would overload. Patient was weaned off of oxygen prior to discharge. She was discharged home today. All other home medications were continued. She was instructed to follow-up with her primary care provider within 7 to 10 days of discharge, sooner if needed. Recommend repeat CBC, CMP, and magnesium at that visit. Consider ENT follow-up if symptoms worsen. She was directed to follow-up with a primary care provider or return to the emergency room should symptoms return or worsen. - Patient Instructions Diet: Diabetic Diet Activity: As Tolerated Driving: Do Not Drive (today ) Showering/Bathing: May Shower Notify Provider of: Fever, Increased Pain, Nausea and/or Vomiting Other/Special Instructions: Follow-up with primary care provider within 7-10 days of discharge, sooner if needed. You were prescribed an antibiotic for your mastoid sinus infection. Take this as prescribed until you run out, even if you feel 100% better. Resume home medications as directed. Should symptoms return or worsen contact primary care provider or return to the Emergency Department. - Discharge Plan *PRESCRIPTION DRUG MONITORING PROGRAM REVIEWED*: Not Applicable *COPY OF PRESCRIPTION DRUG MONITORING REPORT IN PATIENT [place]: Not Applicable Prescriptions/Med Rec: Amoxicillin/Clavulanate K [Augmentin 500-125 MG] 1 tab PO Q12HR #18 tablet Home Medications: Home Meds Ascorbic Acid [Vitamin C] 1,000 mg PO DAILY 02/04/14 [History] Irbesartan [Avapro] 300 mg PO BEDTIME 02/04/14 [History] Levothyroxine Sodium [Synthroid] 75 mcg PO ACBREAKFAST 02/04/14 [History] atorvaSTATin Calcium [Atorvastatin Calcium] 20 mg PO DAILY 02/04/14 [History] Albuterol Sulfate [Proair Hfa] 2 puff INH Q6H 08/18/18 [History] Cholecalciferol (Vitamin D3) [Vitamin D3] 400 unit PO DAILY 08/18/18 [History] Gabapentin [Neurontin] 600 mg PO TID 08/18/18 [History] Multivitamin [Zoo Chews] 1 tab PO DAILY 08/18/18 [History] Umeclidinium Brm/Vilanterol Tr [Anoro Ellipta 62.5-25 MCG] 1 puff INH DAILY 08/18/18 [History] metFORMIN [Glucophage XR] 500 mg PO BID 08/18/18 [History] traMADol [Ultram] 50 mg PO TID PRN 11/14/19 [History] Metoprolol Tartrate 50 mg PO BID #60 tablet 11/17/19 [Rx] Pantoprazole [ProTONIX] 40 mg PO BIDAC #60 tab.cr 11/17/19 [Rx] amLODIPine Besylate [Amlodipine Besylate] 10 mg PO DAILY #30 tablet 11/17/19 [Rx] Amoxicillin/Clavulanate K [Augmentin 500-125 MG] 1 tab PO Q12HR #18 tablet 07/28/20 [Rx] Oxygen Therapy Mode: Room Air Patient Handouts: Fever, Adult, Heart Failure, Self Care, Diabetes Mellitus and Sick Day Management, Sepsis, Diagnosis, Adult Referrals: Nasim Melton MD [Primary Care Provider] - 08/04/20 2:45 pm (Hospital follow-up appointment.) - Discharge Summary/Plan Comment DC Time >30 min.: Yes (45 mins ) - General Info Date of Service: 07/28/20 Admission Dx/Problem (Free Text: Admission Diagnosis/Problem Admission Diagnosis/Problem Fever of unknown origin Functional Status: Reports: Pain Controlled, Tolerating Diet, Ambulating, Urinating. Denies: New Symptoms - Review of Systems General: Reports: No Symptoms. Denies: Fever, Weakness, Fatigue, Malaise, Chills HEENT: Reports: No Symptoms. Denies: Headaches, Sore Throat Pulmonary: Reports: No Symptoms. Denies: Shortness of Breath, Pleuritic Chest Pain, Cough, Sputum, Wheezing Cardiovascular: Reports: No Symptoms. Denies: Chest Pain, Palpitations, Dyspnea on Exertion Gastrointestinal: Reports: No Symptoms. Denies: Abdominal Pain, Constipation, Diarrhea, Nausea, Vomiting Genitourinary: Reports: No Symptoms. Denies: Pain Musculoskeletal: Reports: No Symptoms Skin: Reports: No Symptoms. Denies: Cyanosis Neurological: Reports: No Symptoms. Denies: Confusion, Pre-Existing Deficit, Difficulty Walking, Weakness, Gait Disturbance Psychiatric: Reports: No Symptoms - Patient Data Vitals - Most Recent: Last Vital Signs Temp 97.5 F 07/28/20 08:11 Pulse 60 07/28/20 09:01 Resp 22 H 07/28/20 08:11 BP 144/57 H 07/28/20 09:04 Pulse Ox 91 L 07/28/20 09:17 Weight - Most Recent: 169 lb 11.2 oz I&O - Last 24 hours: Intake & Output 07/27/20 07/28/20 07/28/20 22:59 06:59 14:59 Intake Total 700 700 200 Output Total 400 1300 Balance 300 -600 200 Lab Results - Last 24 hrs: Laboratory Results - last 24 hr 07/27/20 07/27/20 07/28/20 Range/Units 17:10 20:46 05:53 WBC (3.98-10.04) K/mm3 RBC (3.98-5.22) M/mm3 Hgb (11.2-15.7) gm/dl Hct (34.1-44.9) % MCV (79.4-94.8) fl MCH (25.6-32.2) pg MCHC (32.2-35.5) g/dl RDW Std Deviation (36.4-46.3) fL Plt Count (182-369) K/mm3 MPV (9.4-12.3) fl Neut % (Auto) (34.0-71.1) % Lymph % (Auto) (19.3-51.7) % [place] % (Auto) (4.7-12.5) % Eos % (Auto) (0.7-5.8) Baso % (Auto) (0.1-1.2) % Neut # (Auto) (1.56-6.13) K/mm3 Lymph # (Auto) (1.18-3.74) K/mm3 [place] # (Auto) (0.24-0.36) K/mm3 Eos # (Auto) (0.04-0.36) K/mm3 Baso # (Auto) (0.01-0.08) K/mm3 Manual Slide Review Sodium (136-145) mEq/L Potassium (3.5-5.1) mEq/L Chloride (98-107) mEq/L Carbon Dioxide (21-32) mEq/L Anion Gap (5-15) BUN (7-18) mg/dL Creatinine (0.55-1.02) mg/dL Est Cr Clr Drug Dosing mL/min Estimated GFR (MDRD) (>60) mL/min BUN/Creatinine Ratio (14-18) Glucose (83-115) mg/dL POC Glucose 167 H 126 H 111 H (83-110) mg/dL Calcium (8.5-10.1) mg/dL Magnesium (1.8-2.4) mg/dl Vitamin D 25-Hydroxy (30.0-100.0) ng/ml 07/28/20 07/28/20 07/28/20 Range/Units 06:05 06:05 11:02 WBC 6.11 (3.98-10.04) K/mm3 RBC 4.32 (3.98-5.22) M/mm3 Hgb 11.7 (11.2-15.7) gm/dl Hct 36.4 (34.1-44.9) % MCV 84.3 (79.4-94.8) fl MCH 27.1 (25.6-32.2) pg MCHC 32.1 L (32.2-35.5) g/dl RDW Std Deviation 45.1 (36.4-46.3) fL Plt Count 207 (182-369) K/mm3 MPV 10.3 (9.4-12.3) fl Neut % (Auto) 51.2 (34.0-71.1) % Lymph % (Auto) 22.6 (19.3-51.7) % [place] % (Auto) 17.3 H (4.7-12.5) % Eos % (Auto) 8.3 H (0.7-5.8) Baso % (Auto) 0.3 (0.1-1.2) % Neut # (Auto) 3.12 (1.56-6.13) K/mm3 Lymph # (Auto) 1.38 (1.18-3.74) K/mm3 [place] # (Auto) 1.06 H (0.24-0.36) K/mm3 Eos # (Auto) 0.51 H (0.04-0.36) K/mm3 Baso # (Auto) 0.02 (0.01-0.08) K/mm3 Manual Slide Review Abnormal smear Sodium 138 (136-145) mEq/L Potassium 4.3 (3.5-5.1) mEq/L Chloride 101 (98-107) mEq/L Carbon Dioxide 29 (21-32) mEq/L Anion Gap 12.3 (5-15) BUN 14 (7-18) mg/dL Creatinine 1.1 H (0.55-1.02) mg/dL Est Cr Clr Drug Dosing 31.74 mL/min Estimated GFR (MDRD) 48 (>60) mL/min BUN/Creatinine Ratio 12.7 L (14-18) Glucose 107 (83-115) mg/dL POC Glucose 118 H (83-110) mg/dL Calcium 9.3 (8.5-10.1) mg/dL Magnesium 1.7 L (1.8-2.4) mg/dl Vitamin D 25-Hydroxy 110.4 H (30.0-100.0) ng/ml GRACIELA Results - Last 24 hrs: Microbiology 07/26/20 08:46 Aerobic Blood Culture - Preliminary Blood NO GROWTH AFTER 2 DAYS Anaerobic Blood Culture - Preliminary NO GROWTH AFTER 2 DAYS 07/26/20 07:50 Aerobic Blood Culture - Preliminary Blood NO GROWTH AFTER 2 DAYS Anaerobic Blood Culture - Preliminary NO GROWTH AFTER 2 DAYS Med Orders - Current: Current Medications Acetaminophen (Tylenol) 650 mg PO Q6H PRN PRN Reason: Pain/Fever Last Admin: 07/27/20 11:06 Dose: 650 mg Documented by: Albuterol (Proventil Hfa) 0 gm INH Q6H [facility] Last Admin: 07/28/20 09:10 Dose: 2 puff Documented by: Amlodipine Besylate (Norvasc) 10 mg PO DAILY [facility] Last Admin: 07/28/20 09:04 Dose: 10 mg Documented by: Amoxicillin/Clavulanate Potassium (Augmentin 500 Mg\125 Mg) 1 tab PO Q12HR [facility] Last Admin: 07/28/20 09:00 Dose: 1 tab Documented by: Cholecalciferol (Vitamin D3) 25 mcg PO DAILY [facility] Last Admin: 07/28/20 08:42 Dose: 25 mcg Documented by: Enoxaparin Sodium (Lovenox) 40 mg SUBCUT Q24H [facility] Last Admin: 07/27/20 15:15 Dose: 40 mg Documented by: Gabapentin (Neurontin) 600 mg PO TID [facility] Last Admin: 07/28/20 09:03 Dose: 600 mg Documented by: Insulin Human Lispro (Humalog) 0 unit SUBCUT QIDACANDBED [facility]; Protocol Last Admin: 07/28/20 06:57 Dose: Not Given Documented by: Levothyroxine Sodium (Levothyroxine) 75 mcg PO ACBREAKFAST [facility] Last Admin: 07/28/20 05:48 Dose: 75 mcg Documented by: Metformin HCl (Glucophage) 500 mg PO BIDMEALS [facility] Last Admin: 07/28/20 06:04 Dose: 500 mg Documented by: Metoprolol Tartrate (Lopressor) 50 mg PO BID [facility] Last Admin: 07/28/20 09:01 Dose: 50 mg Documented by: Multivitamins (Thera) 1 each PO DAILY [facility] Last Admin: 07/28/20 08:41 Dose: 1 each Documented by: Irbesartan [Avapro] (300 MgOwn Med) 300 mg PO BEDTIME [facility] Last Admin: 07/27/20 20:47 Dose: 300 mg Documented by: Umeclidinium Brm/Vilanterol Tr [Anoro Ellipta 62.5-25 Mcg Own Med 1 puff INH DAILY [facility] Last Admin: 07/28/20 09:10 Dose: 1 puff Documented by: Pantoprazole Sodium (Protonix) 40 mg PO BIDAC [facility] Last Admin: 07/28/20 05:48 Dose: 40 mg Documented by: Sodium Chloride (Saline Flush) 10 ml FLUSH ASDIRECTED PRN PRN Reason: Keep Vein Open Last Admin: 07/26/20 08:17 Dose: 10 ml Documented by: Tramadol HCl (Ultram) 50 mg PO TID [facility] Last Admin: 07/28/20 08:39 Dose: 50 mg Documented by: Discontinued Medications Acetaminophen (Tylenol) 975 mg PO NOW ONE Stop: 07/26/20 08:07 Last Admin: 07/26/20 08:17 Dose: 975 mg Documented by: Albuterol (Proventil Hfa) 0 gm INH Q6H [facility] Last Admin: 07/26/20 14:13 Dose: Not Given Documented by: Albuterol (Proventil Hfa) 0 gm INH Q6H [facility] Last Admin: 07/26/20 16:02 Dose: Not Given Documented by: Cholecalciferol (Vitamin D3) 25 mcg PO DAILY [facility] Sodium Chloride (Normal Saline) 1,000 mls @ 999 mls/hr IV ONETIME [facility] Last Admin: 07/26/20 08:17 Dose: 999 mls/hr Documented by: Ceftriaxone Sodium 2 gm/ (Sodium Chloride) 100 mls @ 200 mls/hr IV ONETIME ONE Stop: 07/26/20 09:06 Last Admin: 07/26/20 09:30 Dose: 200 mls/hr Documented by: Sodium Chloride (Normal Saline) 1,000 mls @ 999 mls/hr IV ONETIME [facility] Last Admin: 07/26/20 09:29 Dose: 999 mls/hr Documented by: Magnesium Sulfate (Magnesium Sulfate In Water 2 Gm/50 Ml) 2 gm in 50 mls @ 25 mls/hr IV ONETIME ONE Stop: 07/28/20 09:59 Last Admin: 07/28/20 08:34 Dose: 25 mls/hr Documented by: Insulin Human Lispro (Humalog) 0 unit SUBCUT QIDACANDBED [facility]; Protocol Last Admin: 07/27/20 07:37 Dose: Not Given Documented by: Insulin Human Regular (Humulin R) 0 unit SUBCUT TIDPC [facility]; Protocol Last Admin: 07/26/20 15:41 Dose: Not Given Documented by: Multivitamin [Zoo Chews] 1 TabOwn Med 1 tab PO DAILY [facility] Tramadol HCl (Ultram) 50 mg PO TID [facility] Last Admin: 07/26/20 16:44 Dose: Not Given Documented by: - Exam Quality Assessment: Reports: DVT Prophylaxis. Denies: Supplemental Oxygen, Ur ine Catheter General: Reports: Alert, Oriented, Cooperative, No Acute Distress HEENT: Reports: Pupils Equal, Pupils Reactive, Mucous Membr. Moist/[place] Neck: Reports: Supple, Trachea Midline Lungs: Reports: Clear to Auscultation, Normal Respiratory Effort Cardiovascular: Reports: Regular Rate, Regular Rhythm GI/Abdominal Exam: Normal Bowel Sounds, Soft, Non-Tender, No Distention (Female) Exam: Deferred Rectal (Female) Exam: Deferred Back Exam: Reports: Normal Inspection, Full Range of Motion Extremities: Normal Inspection, Normal Range of Motion, Non-Tender, Normal Capillary Refill Skin: Reports: Warm, Dry, Intact Neurological: Reports: No New Focal Deficit Psy/Mental Status: Reports: Alert, Normal Affect, Normal Mood
== END 2020-07-28 13:16 | disposition home or self-care (01) ==
LOC: JD.ED 07:05 → JD.MS 09:52
PROVIDERS: ADMIT Internal Medicine Cardiovascular Disease; ATTEND Internal Medicine Cardiovascular Disease
DX: R50.9 Fever, unspecified (principal); T50.B95A Adverse effect of other viral vaccines, initial encounter; R74.02 Elevation of levels of lactic acid dehydrogenase [LDH]; E86.0 Dehydration; H70.92 Unspecified mastoiditis, left ear; R41.82 Altered mental status, unspecified; I11.0 Hypertensive heart disease with heart failure; I50.33 Acute on chronic diastolic (congestive) heart failure; I25.10 Atherosclerotic heart disease of native coronary artery without angina pectoris; J44.9 Chronic obstructive pulmonary disease, unspecified; E11.40 Type 2 diabetes mellitus with diabetic neuropathy, unspecified; E83.42 Hypomagnesemia; E03.9 Hypothyroidism, unspecified; E78.00 Pure hypercholesterolemia, unspecified; M41.9 Scoliosis, unspecified; Z20.822 Contact with and (suspected) exposure to COVID-19; Z88.8 Allergy status to other drugs, medicaments and biological substances; Z87.891 Personal history of nicotine dependence; Z86.010 Personal history of colon polyps; Z79.84 Long term (current) use of oral hypoglycemic drugs; Z79.890 Hormone replacement therapy; Z79.899 Other long term (current) drug therapy; Z98.890 Other specified postprocedural states
CPT/HCPCS: 0240U; 36415; 70450; 71045; 71046; 80048; 80053; 81003; 82306; 82962; 83036; 83605; 83735; 85025; 86140; 86738; 87040; 94640; 94761; 96365; 96366; 96372; 99285; A9270; G0378; J0696; J1650; J3475; J7030; 99217; 99219; 99222; 99224; 99232; 99239; 99284; J1815-GY

== ENCOUNTER 2021-06-23 16:19 | Emergency (ER) | payer MEDICARE, BC ==
[2021-06-23] MEDS ORDERED: Lidocaine 1% 10 ML MDV INJECT ONE (19:01)
[2021-06-23] MEDS ORDERED: Diphtheria,Pertussis(Acell),Tetanus Vaccine 0.5 ML Syringe IM ONE (20:18)
== END 2021-06-23 21:30 | disposition home or self-care (01) ==
LOC: JD.ED 16:19
DX: S01.01XA Laceration without foreign body of scalp, initial encounter (principal); I25.10 Atherosclerotic heart disease of native coronary artery without angina pectoris; E78.00 Pure hypercholesterolemia, unspecified; J44.9 Chronic obstructive pulmonary disease, unspecified; I10 Essential (primary) hypertension; E11.9 Type 2 diabetes mellitus without complications; E03.9 Hypothyroidism, unspecified; M19.90 Unspecified osteoarthritis, unspecified site; Z88.8 Allergy status to other drugs, medicaments and biological substances; Z23 Encounter for immunization; Z87.891 Personal history of nicotine dependence; W18.09XA Striking against other object with subsequent fall, initial encounter; Y92.000 Kitchen of unspecified non-institutional (private) residence as the place of occurrence of the external cause
CPT/HCPCS: 12002; 70450; 70450-26; 90471; 90715; 99283-25

== ENCOUNTER 2022-05-31 15:17 | Emergency (ER) | payer MEDICARE, BC ==
[2022-05-31] MEDS ORDERED: Sodium Chloride 0.9% 1,000 ML IV SCH (16:15)
[2022-05-31] MEDS ORDERED: Dextrose 5%-0.9% NaCl 1,000 ML IV SCH (16:15)
[2022-05-31 20:04] LABS: CORONAVIRUS COVID-19 NAA NEGATIVE (NEGATIVE)
[2022-05-31] MEDS ORDERED: cefTRIAXone 2 GM in Sodium Chloride 0.9% 100 ML IV ONE (20:35)
== END 2022-05-31 22:33 | disposition home or self-care (01) ==
LOC: MERGE 15:17 → JD.ED 15:17
DX: N10 Acute pyelonephritis (principal); I44.0 Atrioventricular block, first degree; I25.10 Atherosclerotic heart disease of native coronary artery without angina pectoris; I10 Essential (primary) hypertension; E78.00 Pure hypercholesterolemia, unspecified; J44.9 Chronic obstructive pulmonary disease, unspecified; E11.42 Type 2 diabetes mellitus with diabetic polyneuropathy; E03.9 Hypothyroidism, unspecified; Z88.8 Allergy status to other drugs, medicaments and biological substances; Z79.899 Other long term (current) drug therapy; Z79.84 Long term (current) use of oral hypoglycemic drugs; Z20.822 Contact with and (suspected) exposure to COVID-19
CPT/HCPCS: 0241U; 36415; 70450; 71045; 73630; 80053; 81001; 82553; 83036; 83735; 83880; 83930; 84484; 85025; 86140; 87086; 87088; 87186; 93005; 96365; 99285; J0696

== ENCOUNTER 2024-08-17 09:56 | Inpatient (IN) | payer MEDICARE, BC ==
[2024-08-17] MEDS ORDERED: Sodium Chloride 0.9% 10 ML SDV IV PRN (10:01)
[2024-08-17] MEDS ORDERED: Sodium Chloride 0.9% 10 ML Syringe FLUSH PRN (10:01)
[2024-08-17] MEDS: Iopamidol 755 Mg/ML 100 ML Bottle IVPUSH ONE (10:09)
[2024-08-17] MEDS ORDERED: Sodium Chloride 0.9% 100 ML IV SCH (10:15)
[2024-08-17 10:55] LABS: BASOPHILS ABSOLUTE AUTO 0.1 K/mm3 (0.0-0.2); EOSINOPHILS ABSOLUTE AUTO 0.2 K/mm3 (0.0-0.4); HEMATOCRIT 41.5 % (37.0-47.0); HEMOGLOBIN 13.5 gm/dl (12.0-16.0); LYMPHOCYTES ABSOLUTE AUTO 1.3 K/mm3 (1.0-4.8); LYMPHOCYTES PERCENT AUTO 12.5 % (24.0-44.0); MEAN CORPUSCULAR HEMOGLOBIN 26.9 pg (28.0-32.0); MEAN CORPUSCULAR HGB CONC 32.5 g/dl (32.0-36.0); MEAN CORPUSCULAR VOLUME 82.8 fl (83.0-99.0); MEAN PLATELET VOLUME 9.5 fl (9.4-12.3); MONOCYTES ABSOLUTE AUTO 0.9 K/mm3 (0.0-0.8); MONOCYTES PERCENT AUTO 9.4 % (0.0-8.0); NEUTROPHILS ABSOLUTE AUTO 7.1 K/mm3 (1.8-7.7); NEUTROPHILS PERCENT AUTO 71.1 % (41.0-71.0); PLATELET COUNT,PLT 309 K/mm3 (150-400); RED BLOOD CELL COUNT 5.01 M/mm3 (4.10-5.30); WHITE BLOOD CELL COUNT,WBC 10.02 K/mm3 (3.9-11.3)
[2024-08-17 11:15] LABS: INR 1.04
[2024-08-17 11:17] LABS: PTT,PARTIAL THROMBOPLSTIN TIME 24.5 SECONDS (21.7-31.4)
[2024-08-17 11:20] LABS: A/G RATIO 0.9 (1-2); ALANINE AMINOTRANSFERASE,ALT 15 U/L (14-59); ALBUMIN 2.9 g/dl (3.4-5.0); ALKALINE PHOSPHATASE 64 U/L (46-116); ANION GAP 15.2 (5-15); ASPARTATE AMNIOTRANSFERASE,AST 17 U/L (15-37); BILIRUBIN TOTAL 0.9 mg/dL (0.2-1.0); BLOOD UREA NITROGEN,BUN 14 mg/dL (7-18); BUN/CREATININE RATIO 11.7 (14-18); CALCIUM 9.3 mg/dL (8.5-10.1); CARBON DIOXIDE,CO2 26 mEq/L (21-32); CHLORIDE,CL 101 mEq/L (98-107); CREATININE 1.2 mg/dL (0.55-1.02); ESTIMATED GFR 46 mL/min (>60); GLUCOSE RANDOM 127 mg/dL (70-99); POTASSIUM,K 4.2 mEq/L (3.5-5.1); PROTEIN TOTAL,TP 6.3 g/dl (6.4-8.2); SODIUM,NA 138 mEq/L (136-145); TROPONIN I HIGH SENSITIVITY 14 pg/mL (<=51)
[2024-08-17 13:11] LABS: HEMOGLOBIN A1C 7.8 %
[2024-08-17 13:12] LABS: CHOLESTEROL HDL 37 mg/dL (40-59); CHOLESTEROL LDL DIRECT 74 mg/dL (<100); CHOLESTEROL TOTAL 131 mg/dL (<200); TRIGLYCERIDES 135 mg/dL (<150)
[2024-08-17] MEDS ORDERED: Ondansetron 4 MG/2 ML SDV IV PRN (14:52)
[2024-08-17] MEDS ORDERED: Ondansetron 4 MG Tab.DIS PO PRN (14:52)
[2024-08-17] MEDS ORDERED: Ertapenem 1 GM in Sodium Chloride 0.9% 50 ML IV SCH (15:15)
[2024-08-17] MEDS: Enoxaparin 40 MG/0.4 ML Syringe SUBCUT SCH (15:49)
[2024-08-17] MEDS: Piperacillin/Tazobactam 4.5 GM in Sodium Chloride 0.9% 100 ML IV ONE (16:00)
[2024-08-17] MEDS: Insulin Lispro 100 Unit/ML 3 ML KwikPen SUBCUT SCH (16:44)
[2024-08-17] MEDS ORDERED: hydrOXYzine HCl 25 MG Tab PO PRN (16:45)
[2024-08-17] MEDS: Acetaminophen 325 MG Tab PO PRN (20:40)
[2024-08-17] MEDS: Famotidine 20 MG Tab PO SCH (20:40)
[2024-08-17] MEDS: Gabapentin 300 MG Cap PO SCH (20:40)
[2024-08-17] MEDS: Montelukast 10 MG Tab PO SCH (20:41)
[2024-08-17] MEDS: Metoprolol Tartrate 50 MG Tab PO SCH (20:41)
[2024-08-17] MEDS: Albuterol 0.083% 2.5 MG/3 ML Neb Soln INH PRN (21:12)
[2024-08-17] MEDS: Piperacillin/Tazobactam 4.5 GM in Sodium Chloride 0.9% 100 ML IV SCH (22:40)
[2024-08-18 03:41] LABS: APPEARANCE,URINE CLEAR (Clear); BILIRUBIN,URINE NEGATIVE (Negative); COLOR,URINE YELLOW (Yellow); GLUCOSE,URINE NEGATIVE (Negative); KETONES,URINE NEGATIVE (Negative); LEUKOCYTE ESTERASE,URINE TRACE (Negative); NITRITE,URINE NEGATIVE (Negative); OCCULT BLOOD,URINE NEGATIVE (Negative); PROTEIN,URINE 1+ (Negative); UROBILINOGEN,URINE 0.2 (0.2-1.0)
[2024-08-18 03:59] LABS: RBC,URINE 0-5 /hpf (0-5)
[2024-08-18 04:00] LABS: BACTERIA,URINE FEW /hpf (FEW); MUCUS,URINE NOT SEEN /hpf (FEW); SQUAMOUS EPITHELIAL CELLS,UR 0-5 /hpf (0-5); URIC ACID CRYSTALS,URINE RARE
[2024-08-18 05:35] LABS: BASOPHILS ABSOLUTE AUTO 0.1 K/mm3 (0.0-0.2); BASOPHILS PERCENT AUTO 1.3 % (0.0-1.0); EOSINOPHILS ABSOLUTE AUTO 0.3 K/mm3 (0.0-0.4); EOSINOPHILS PERCENT AUTO 3.5 % (0.0-6.0); HEMATOCRIT 39.8 % (37.0-47.0); IMMATURE GRAN ABSOLUTE AUTO 0.32 K/mm3 (0.00-0.05); IMMATURE GRAN PERCENT AUTO 3.7 % (0.0-0.4); LYMPHOCYTES ABSOLUTE AUTO 1.7 K/mm3 (1.0-4.8); LYMPHOCYTES PERCENT AUTO 18.8 % (24.0-44.0); MEAN CORPUSCULAR HEMOGLOBIN 27.3 pg (28.0-32.0); MEAN CORPUSCULAR HGB CONC 32.7 g/dl (32.0-36.0); MEAN CORPUSCULAR VOLUME 83.6 fl (83.0-99.0); MEAN PLATELET VOLUME 10.1 fl (9.4-12.3); MONOCYTES ABSOLUTE AUTO 0.8 K/mm3 (0.0-0.8); MONOCYTES PERCENT AUTO 9.6 % (0.0-8.0); NEUTROPHILS ABSOLUTE AUTO 5.5 K/mm3 (1.8-7.7); NEUTROPHILS PERCENT AUTO 63.1 % (41.0-71.0); PLATELET COUNT,PLT 304 K/mm3 (150-400); RED BLOOD CELL COUNT 4.76 M/mm3 (4.10-5.30); WHITE BLOOD CELL COUNT,WBC 8.76 K/mm3 (3.9-11.3)
[2024-08-18] MEDS: Levothyroxine 75 MCG Tab PO SCH (05:37)
[2024-08-18 06:05] LABS: A/G RATIO 0.8 (1-2); ALBUMIN 2.7 g/dl (3.4-5.0); ANION GAP 12.8 (5-15); BILIRUBIN TOTAL 0.9 mg/dL (0.2-1.0); BUN/CREATININE RATIO 13.1 (14-18); C-REACTIVE PROTEIN 1.8 mg/dL (<0.30); CALCIUM 9.3 mg/dL (8.5-10.1); CREATININE 1.3 mg/dL (0.55-1.02); EST CRCL DRUG DOSING (CG) 26.48 mL/min; MAGNESIUM 1.9 mg/dL (1.8-2.4); POTASSIUM,K 3.8 mEq/L (3.5-5.1)
[2024-08-18] MEDS: Fluticasone/Umeclidin/Vilanter [Trelegy Ellipta 100-62.5- INH SCH (08:40)
[2024-08-18 09:11] LABS: TSH 1.312 uIU/mL (0.358-3.74)
[2024-08-18] MEDS: amLODIPine 5 MG Tab PO SCH (09:22)
[2024-08-18] MEDS: Gabapentin 300 MG Cap PO SCH (09:22)
[2024-08-18] MEDS: atorvaSTATin 40 MG Tab PO SCH (09:22)
[2024-08-18] MEDS: DULoxetine 30 MG Cap PO SCH (09:22)
[2024-08-18] MEDS: predniSONE 20 MG Tab PO SCH (09:22)
[2024-08-18] MEDS: Enoxaparin 40 MG/0.4 ML Syringe SUBCUT SCH (09:23)
[2024-08-18] MEDS: Metoprolol Tartrate 25 MG Tab PO SCH (11:39)
[2024-08-18] MEDS: Sodium Chloride 0.9% 100 ML ONE (14:27)
[2024-08-19 05:31] LABS: BASOPHILS ABSOLUTE AUTO 0.1 K/mm3 (0.0-0.2); BASOPHILS PERCENT AUTO 0.4 % (0.0-1.0); EOSINOPHILS ABSOLUTE AUTO 0.1 K/mm3 (0.0-0.4); EOSINOPHILS PERCENT AUTO 0.3 % (0.0-6.0); HEMATOCRIT 38.3 % (37.0-47.0); HEMOGLOBIN 12.6 gm/dl (12.0-16.0); IMMATURE GRAN ABSOLUTE AUTO 0.69 K/mm3 (0.00-0.05); IMMATURE GRAN PERCENT AUTO 4.4 % (0.0-0.4); LYMPHOCYTES ABSOLUTE AUTO 1.1 K/mm3 (1.0-4.8); LYMPHOCYTES PERCENT AUTO 7.1 % (24.0-44.0); MEAN CORPUSCULAR HEMOGLOBIN 26.9 pg (28.0-32.0); MEAN CORPUSCULAR HGB CONC 32.9 g/dl (32.0-36.0); MEAN CORPUSCULAR VOLUME 81.8 fl (83.0-99.0); MEAN PLATELET VOLUME 10.1 fl (9.4-12.3); MONOCYTES ABSOLUTE AUTO 0.9 K/mm3 (0.0-0.8); MONOCYTES PERCENT AUTO 5.5 % (0.0-8.0); NEUTROPHILS ABSOLUTE AUTO 13.1 K/mm3 (1.8-7.7); NEUTROPHILS PERCENT AUTO 82.3 % (41.0-71.0); PLATELET COUNT,PLT 346 K/mm3 (150-400); RED BLOOD CELL COUNT 4.68 M/mm3 (4.10-5.30); WHITE BLOOD CELL COUNT,WBC 15.86 K/mm3 (3.9-11.3)
[2024-08-19 05:50] LABS: A/G RATIO 0.9 (1-2); ALBUMIN 2.8 g/dl (3.4-5.0); ANION GAP 14.1 (5-15); BILIRUBIN TOTAL 0.6 mg/dL (0.2-1.0); C-REACTIVE PROTEIN 0.98 mg/dL (<0.30); CALCIUM 9.9 mg/dL (8.5-10.1); CREATININE 1.2 mg/dL (0.55-1.02); EST CRCL DRUG DOSING (CG) 28.68 mL/min; POTASSIUM,K 4.1 mEq/L (3.5-5.1); PROTEIN TOTAL,TP 6.1 g/dl (6.4-8.2)
[2024-08-19 06:09] LABS: SLIDE REVIEW ABNORMAL SMEAR
[2024-08-20] MEDS: Piperacillin/Tazobactam 4.5 GM in Sodium Chloride 0.9% 100 ML IV SCH (03:07)
[2024-08-20 05:39] LABS: BASOPHILS ABSOLUTE AUTO 0.1 K/mm3 (0.0-0.2); BASOPHILS PERCENT AUTO 0.6 % (0.0-1.0); HEMOGLOBIN 12.5 gm/dl (12.0-16.0); IMMATURE GRAN ABSOLUTE AUTO 0.88 K/mm3 (0.00-0.05); IMMATURE GRAN PERCENT AUTO 4.9 % (0.0-0.4); LYMPHOCYTES ABSOLUTE AUTO 1.3 K/mm3 (1.0-4.8); LYMPHOCYTES PERCENT AUTO 7.3 % (24.0-44.0); MEAN CORPUSCULAR HEMOGLOBIN 27.2 pg (28.0-32.0); MEAN CORPUSCULAR HGB CONC 33.8 g/dl (32.0-36.0); MEAN CORPUSCULAR VOLUME 80.6 fl (83.0-99.0); MEAN PLATELET VOLUME 9.8 fl (9.4-12.3); MONOCYTES ABSOLUTE AUTO 0.8 K/mm3 (0.0-0.8); MONOCYTES PERCENT AUTO 4.4 % (0.0-8.0); NEUTROPHILS PERCENT AUTO 82.8 % (41.0-71.0); PLATELET COUNT,PLT 345 K/mm3 (150-400); RED BLOOD CELL COUNT 4.59 M/mm3 (4.10-5.30); WHITE BLOOD CELL COUNT,WBC 18.14 K/mm3 (3.9-11.3)
[2024-08-20 06:07] LABS: A/G RATIO 0.9 (1-2); ALBUMIN 2.9 g/dl (3.4-5.0); ANION GAP 14.5 (5-15); BILIRUBIN TOTAL 0.6 mg/dL (0.2-1.0); BUN/CREATININE RATIO 14.5 (14-18); C-REACTIVE PROTEIN 0.38 mg/dL (<0.30); CALCIUM 9.7 mg/dL (8.5-10.1); CREATININE 1.1 mg/dL (0.55-1.02); EST CRCL DRUG DOSING (CG) 31.29 mL/min; MAGNESIUM 2.1 mg/dL (1.8-2.4); POTASSIUM,K 4.5 mEq/L (3.5-5.1); PROTEIN TOTAL,TP 6.2 g/dl (6.4-8.2)
[2024-08-20 06:16] LABS: SLIDE REVIEW ABNORMAL SMEAR
[2024-08-21 04:53] LABS: BASOPHILS ABSOLUTE AUTO 0.1 K/mm3 (0.0-0.2); BASOPHILS PERCENT AUTO 0.7 % (0.0-1.0); EOSINOPHILS ABSOLUTE AUTO 0.1 K/mm3 (0.0-0.4); EOSINOPHILS PERCENT AUTO 0.3 % (0.0-6.0); HEMATOCRIT 38.3 % (37.0-47.0); HEMOGLOBIN 12.7 gm/dl (12.0-16.0); IMMATURE GRAN ABSOLUTE AUTO 1.16 K/mm3 (0.00-0.05); IMMATURE GRAN PERCENT AUTO 5.6 % (0.0-0.4); LYMPHOCYTES ABSOLUTE AUTO 1.7 K/mm3 (1.0-4.8); LYMPHOCYTES PERCENT AUTO 7.9 % (24.0-44.0); MEAN CORPUSCULAR HEMOGLOBIN 27.3 pg (28.0-32.0); MEAN CORPUSCULAR HGB CONC 33.2 g/dl (32.0-36.0); MEAN CORPUSCULAR VOLUME 82.2 fl (83.0-99.0); MONOCYTES ABSOLUTE AUTO 1.4 K/mm3 (0.0-0.8); MONOCYTES PERCENT AUTO 6.9 % (0.0-8.0); NEUTROPHILS ABSOLUTE AUTO 16.4 K/mm3 (1.8-7.7); NEUTROPHILS PERCENT AUTO 78.6 % (41.0-71.0); PLATELET COUNT,PLT 335 K/mm3 (150-400); RED BLOOD CELL COUNT 4.66 M/mm3 (4.10-5.30); WHITE BLOOD CELL COUNT,WBC 20.87 K/mm3 (3.9-11.3)
[2024-08-21 05:37] LABS: A/G RATIO 0.9 (1-2); ALBUMIN 2.9 g/dl (3.4-5.0); BILIRUBIN TOTAL 0.5 mg/dL (0.2-1.0); BUN/CREATININE RATIO 19.1 (14-18); C-REACTIVE PROTEIN 0.2 mg/dL (<0.30); CALCIUM 9.7 mg/dL (8.5-10.1); CREATININE 1.1 mg/dL (0.55-1.02); EST CRCL DRUG DOSING (CG) 31.29 mL/min; MAGNESIUM 2.1 mg/dL (1.8-2.4); PROTEIN TOTAL,TP 6.2 g/dl (6.4-8.2)
[2024-08-21 06:35] LABS: SLIDE REVIEW ABNORMAL SMEAR
[2024-08-21] MEDS: Polyethylene Glycol 3350 Powder 17 GM Packet PO PRN (07:01)
[2024-08-21] MEDS: Iopamidol 612 MG/ML 100 ML Bottle IVPUSH ONE (12:25)
[2024-08-21] MEDS: Sodium Chloride 0.9% 10 ML Syringe FLUSH ONE (12:25)
[2024-08-21] MEDS: Insulin Lispro 100 Unit/ML 3 ML KwikPen SUBCUT ONE (17:25)
[2024-08-22] MEDS: Docusate Sodium 100 MG Cap PO PRN (06:29)
[2024-08-22] MEDS: Insulin Glargine,Human Rec. Analog 100 Units/ML 3 ML Pen SUBCUT SCH (08:58)
[2024-08-22 09:02] LABS: BASOPHILS PERCENT AUTO 0.1 % (0.0-1.0); EOSINOPHILS PERCENT AUTO 0.2 % (0.0-6.0); HEMATOCRIT 45.3 % (37.0-47.0); HEMOGLOBIN 14.9 gm/dl (12.0-16.0); IMMATURE GRAN ABSOLUTE AUTO 1.33 K/mm3 (0.00-0.05); IMMATURE GRAN PERCENT AUTO 5.5 % (0.0-0.4); LYMPHOCYTES ABSOLUTE AUTO 2.9 K/mm3 (1.0-4.8); LYMPHOCYTES PERCENT AUTO 12.2 % (24.0-44.0); MEAN CORPUSCULAR HEMOGLOBIN 27.1 pg (28.0-32.0); MEAN CORPUSCULAR HGB CONC 32.9 g/dl (32.0-36.0); MEAN CORPUSCULAR VOLUME 82.4 fl (83.0-99.0); MEAN PLATELET VOLUME 10.1 fl (9.4-12.3); MONOCYTES ABSOLUTE AUTO 1.4 K/mm3 (0.0-0.8); MONOCYTES PERCENT AUTO 5.7 % (0.0-8.0); NEUTROPHILS ABSOLUTE AUTO 18.3 K/mm3 (1.8-7.7); NEUTROPHILS PERCENT AUTO 76.3 % (41.0-71.0); PLATELET COUNT,PLT 422 K/mm3 (150-400); WHITE BLOOD CELL COUNT,WBC 23.98 K/mm3 (3.9-11.3)
[2024-08-22 09:24] LABS: ANION GAP 12.2 (5-15); BUN/CREATININE RATIO 21.8 (14-18); C-REACTIVE PROTEIN 0.09 mg/dL (<0.30); CALCIUM 10.2 mg/dL (8.5-10.1); CREATININE 1.1 mg/dL (0.55-1.02); EST CRCL DRUG DOSING (CG) 31.29 mL/min; POTASSIUM,K 4.2 mEq/L (3.5-5.1)
[2024-08-22 11:30] LABS: SLIDE REVIEW ABNORMAL SMEAR
[2024-08-23 04:40] LABS: BASOPHILS ABSOLUTE AUTO 0.2 K/mm3 (0.0-0.2); BASOPHILS PERCENT AUTO 0.9 % (0.0-1.0); EOSINOPHILS ABSOLUTE AUTO 0.1 K/mm3 (0.0-0.4); EOSINOPHILS PERCENT AUTO 0.4 % (0.0-6.0); HEMATOCRIT 42.6 % (37.0-47.0); IMMATURE GRAN ABSOLUTE AUTO 1.31 K/mm3 (0.00-0.05); IMMATURE GRAN PERCENT AUTO 6.2 % (0.0-0.4); LYMPHOCYTES ABSOLUTE AUTO 2.2 K/mm3 (1.0-4.8); LYMPHOCYTES PERCENT AUTO 10.5 % (24.0-44.0); MEAN CORPUSCULAR HEMOGLOBIN 26.9 pg (28.0-32.0); MEAN CORPUSCULAR HGB CONC 32.9 g/dl (32.0-36.0); MEAN CORPUSCULAR VOLUME 81.8 fl (83.0-99.0); MONOCYTES ABSOLUTE AUTO 1.5 K/mm3 (0.0-0.8); MONOCYTES PERCENT AUTO 7.3 % (0.0-8.0); NEUTROPHILS ABSOLUTE AUTO 15.8 K/mm3 (1.8-7.7); NEUTROPHILS PERCENT AUTO 74.7 % (41.0-71.0); PLATELET COUNT,PLT 354 K/mm3 (150-400); RED BLOOD CELL COUNT 5.21 M/mm3 (4.10-5.30); WHITE BLOOD CELL COUNT,WBC 21.07 K/mm3 (3.9-11.3)
[2024-08-23 05:26] LABS: SLIDE REVIEW ABNORMAL SMEAR
== END 2024-08-23 11:00 | disposition home or self-care (01) | DRG 689 ==
LOC: EEVIPCON 09:56 → JD.ED 09:56 → JD.MS 12:30
PROVIDERS: ADMIT Family Medicine; ATTEND Student in an Organized Health Care Education/Training Program
DX: I63.9 Cerebral infarction, unspecified (principal); N30.00 Acute cystitis without hematuria; I10 Essential (primary) hypertension; N39.0 Urinary tract infection, site not specified; G93.41 Metabolic encephalopathy; J18.9 Pneumonia, unspecified organism; I13.0 Hypertensive heart and chronic kidney disease with heart failure and stage 1 through stage 4 chronic kidney disease, or unspecified chronic kidney disease; I50.32 Chronic diastolic (congestive) heart failure; Z16.11 Resistance to penicillins; Z79.84 Long term (current) use of oral hypoglycemic drugs; Z88.5 Allergy status to narcotic agent; F01.B4 Vascular dementia, moderate, with anxiety; I25.10 Atherosclerotic heart disease of native coronary artery without angina pectoris; E11.42 Type 2 diabetes mellitus with diabetic polyneuropathy; K21.9 Gastro-esophageal reflux disease without esophagitis; E03.9 Hypothyroidism, unspecified; B96.20 Unspecified Escherichia coli [E. coli] as the cause of diseases classified elsewhere; Z96.653 Presence of artificial knee joint, bilateral; Z96.643 Presence of artificial hip joint, bilateral; J44.9 Chronic obstructive pulmonary disease, unspecified; N18.31 Chronic kidney disease, stage 3a; E11.22 Type 2 diabetes mellitus with diabetic chronic kidney disease; E78.00 Pure hypercholesterolemia, unspecified; G89.29 Other chronic pain; M19.90 Unspecified osteoarthritis, unspecified site; Z66 Do not resuscitate; R29.810 Facial weakness; J98.4 Other disorders of lung; K80.20 Calculus of gallbladder without cholecystitis without obstruction; D72.829 Elevated white blood cell count, unspecified; E11.65 Type 2 diabetes mellitus with hyperglycemia; Z88.6 Allergy status to analgesic agent; Z79.51 Long term (current) use of inhaled steroids; Z79.899 Other long term (current) drug therapy; Z79.1 Long term (current) use of non-steroidal anti-inflammatories (NSAID); Z79.02 Long term (current) use of antithrombotics/antiplatelets; Z98.49 Cataract extraction status, unspecified eye; Z98.890 Other specified postprocedural states; Z90.710 Acquired absence of both cervix and uterus; Z78.9 Other specified health status; Z87.891 Personal history of nicotine dependence
CPT/HCPCS: 36415; 70450; 70496; 70498; 80053; 80061; 83036; 84484; 85025; 85610; 85730; 86140; 93005; 99285; Q9967; 70551; 70551-26; 71260; 71260-26; 74177; 74177-26; 80048; 81001; 82947; 83735; 84443; 87086; 93010; 94640; 94761; 97110-GP; 97112-GP; 97116-GP; 97161-GP; 97165-GO; 97530-GP; 97535-GO; A9270-GY; J1335; J1650; J1815; J1815-GY; J2543; J3490; J7512

== ENCOUNTER 2024-08-26 10:25 | Inpatient (IN) | payer MEDICARE, BC ==
[2024-08-26 11:38] LABS: BASOPHILS ABSOLUTE AUTO 0.2 K/mm3 (0.0-0.2); BASOPHILS PERCENT AUTO 0.8 % (0.0-1.0); EOSINOPHILS ABSOLUTE AUTO 0.6 K/mm3 (0.0-0.4); HEMATOCRIT 43.4 % (37.0-47.0); HEMOGLOBIN 14.2 gm/dl (12.0-16.0); IMMATURE GRAN ABSOLUTE AUTO 0.96 K/mm3 (0.00-0.05); IMMATURE GRAN PERCENT AUTO 4.7 % (0.0-0.4); LYMPHOCYTES PERCENT AUTO 9.9 % (24.0-44.0); MEAN CORPUSCULAR HEMOGLOBIN 27.2 pg (28.0-32.0); MEAN CORPUSCULAR HGB CONC 32.7 g/dl (32.0-36.0); MEAN CORPUSCULAR VOLUME 83.1 fl (83.0-99.0); MEAN PLATELET VOLUME 10.8 fl (9.4-12.3); MONOCYTES ABSOLUTE AUTO 1.7 K/mm3 (0.0-0.8); NEUTROPHILS ABSOLUTE AUTO 14.9 K/mm3 (1.8-7.7); NEUTROPHILS PERCENT AUTO 73.2 % (41.0-71.0); RED BLOOD CELL COUNT 5.22 M/mm3 (4.10-5.30); WHITE BLOOD CELL COUNT,WBC 20.29 K/mm3 (3.9-11.3)
[2024-08-26 11:40] LABS: PLATELET COUNT,PLT 236 K/mm3 (150-400)
[2024-08-26 11:51] LABS: A/G RATIO 0.9 (1-2); ALBUMIN 2.9 g/dl (3.4-5.0); ANION GAP 13.9 (5-15); BILIRUBIN TOTAL 0.9 mg/dL (0.2-1.0); BUN/CREATININE RATIO 21.8 (14-18); CALCIUM 8.8 mg/dL (8.5-10.1); CREATININE 1.1 mg/dL (0.55-1.02); EST CRCL DRUG DOSING (CG) 29.79 mL/min; POTASSIUM,K 3.9 mEq/L (3.5-5.1)
[2024-08-26 13:01] LABS: MONOCYTES PERCENT AUTO 8.4 % (0.0-8.0); SLIDE REVIEW ABNORMAL SMEAR
[2024-08-26] MEDS: Ertapenem 1 GM Vial IVPUSH ONE ×2 (14:18→18:33)
[2024-08-26 14:34] LABS: APPEARANCE,URINE CLEAR (Clear); BILIRUBIN,URINE NEGATIVE (Negative); COLOR,URINE YELLOW (Yellow); GLUCOSE,URINE NEGATIVE (Negative); KETONES,URINE NEGATIVE (Negative); LEUKOCYTE ESTERASE,URINE NEGATIVE (Negative); NITRITE,URINE NEGATIVE (Negative); OCCULT BLOOD,URINE NEGATIVE (Negative); PH,URINE 5.5 (5.0-8.0); PROTEIN,URINE 1+ (Negative); UROBILINOGEN,URINE 0.2 (0.2-1.0)
[2024-08-26] MEDS ORDERED: Acetaminophen 325 MG Tab PO PRN (14:58)
[2024-08-26] MEDS ORDERED: Ondansetron 4 MG/2 ML SDV IV PRN (14:58)
[2024-08-26] MEDS ORDERED: Melatonin 3 MG Tab PO PRN (14:58)
[2024-08-26 15:32] LABS: BACTERIA,URINE FEW /hpf (FEW); EPITHELIAL CELLS,URINE 0-5 /hpf (0-5); MUCUS,URINE FEW /hpf (FEW); RBC,URINE 0-5 /hpf (0-5); WBC,URINE 0-5 /hpf (0-5)
[2024-08-26] MEDS: Lactated Ringers 1,000 ML IV SCH (16:00)
[2024-08-26] MEDS ORDERED: hydrOXYzine HCl 25 MG Tab PO PRN (18:08)
[2024-08-26] MEDS: Albuterol 6.7 GM Inhaler INH PRN (20:25)
[2024-08-26] MEDS: Famotidine 20 MG Tab PO SCH (20:42)
[2024-08-26] MEDS: Gabapentin 300 MG Cap PO SCH (20:42)
[2024-08-26] MEDS: Metoprolol Tartrate 25 MG Tab PO SCH (20:42)
[2024-08-26] MEDS: Montelukast 10 MG Tab PO SCH (20:42)
[2024-08-27 05:28] LABS: BASOPHILS PERCENT AUTO 0.2 % (0.0-1.0); EOSINOPHILS ABSOLUTE AUTO 0.7 K/mm3 (0.0-0.4); EOSINOPHILS PERCENT AUTO 5.1 % (0.0-6.0); HEMATOCRIT 40.1 % (37.0-47.0); HEMOGLOBIN 13.4 gm/dl (12.0-16.0); IMMATURE GRAN ABSOLUTE AUTO 0.66 K/mm3 (0.00-0.05); IMMATURE GRAN PERCENT AUTO 4.9 % (0.0-0.4); LYMPHOCYTES ABSOLUTE AUTO 1.8 K/mm3 (1.0-4.8); LYMPHOCYTES PERCENT AUTO 13.2 % (24.0-44.0); MEAN CORPUSCULAR HEMOGLOBIN 27.3 pg (28.0-32.0); MEAN CORPUSCULAR HGB CONC 33.4 g/dl (32.0-36.0); MEAN CORPUSCULAR VOLUME 81.7 fl (83.0-99.0); MEAN PLATELET VOLUME 11.1 fl (9.4-12.3); MONOCYTES ABSOLUTE AUTO 1.3 K/mm3 (0.0-0.8); MONOCYTES PERCENT AUTO 9.2 % (0.0-8.0); NEUTROPHILS ABSOLUTE AUTO 9.1 K/mm3 (1.8-7.7); NEUTROPHILS PERCENT AUTO 67.4 % (41.0-71.0); PLATELET COUNT,PLT 184 K/mm3 (150-400); RED BLOOD CELL COUNT 4.91 M/mm3 (4.10-5.30); WHITE BLOOD CELL COUNT,WBC 13.52 K/mm3 (3.9-11.3)
[2024-08-27 05:54] LABS: A/G RATIO 0.9 (1-2); ALBUMIN 2.6 g/dl (3.4-5.0); ANION GAP 10.9 (5-15); BILIRUBIN TOTAL 0.9 mg/dL (0.2-1.0); CALCIUM 8.9 mg/dL (8.5-10.1); EST CRCL DRUG DOSING (CG) 32.77 mL/min; POTASSIUM,K 3.9 mEq/L (3.5-5.1); PROTEIN TOTAL,TP 5.4 g/dl (6.4-8.2)
[2024-08-27] MEDS: Levothyroxine 75 MCG Tab PO SCH (06:04)
[2024-08-27] MEDS: metFORMIN 500 MG Tab PO SCH (06:11)
[2024-08-27 06:45] LABS: SLIDE REVIEW ABNORMAL SMEAR
[2024-08-27] MEDS: Enoxaparin 30 MG/0.3 ML Syringe SUBCUT SCH (08:14)
[2024-08-27] MEDS: atorvaSTATin 40 MG Tab PO SCH (08:14)
[2024-08-27] MEDS: amLODIPine 5 MG Tab PO SCH (08:14)
[2024-08-27] MEDS: predniSONE 20 MG Tab PO SCH (08:14)
[2024-08-27] MEDS: Gabapentin 300 MG Cap PO SCH (08:15)
[2024-08-27] MEDS: DULoxetine 30 MG Cap PO SCH (08:15)
[2024-08-27] MEDS: Fluticasone/Umeclidin/Vilanter [Trelegy Ellipta 100-62.5- INH SCH (08:50)
[2024-08-27 13:24] LABS: FOLIC ACID 6.3 ng/mL (8.6-58.9)
[2024-08-27] MEDS: Folic Acid 1 MG Tab PO SCH (15:03)
[2024-08-27] MEDS: Insulin Lispro 100 Unit/ML 3 ML KwikPen SUBCUT SCH (17:12)
[2024-08-28] MEDS ORDERED: predniSONE 20 MG Tab PO SCH (07:00)
[2024-08-28] MEDS: Sennosides/Docusate Sodium 50-8.6 MG Tab PO PRN (09:06)
[2024-08-28 10:23] LABS: BASOPHILS ABSOLUTE AUTO 0.1 K/mm3 (0.0-0.2); BASOPHILS PERCENT AUTO 0.4 % (0.0-1.0); EOSINOPHILS ABSOLUTE AUTO 0.2 K/mm3 (0.0-0.4); EOSINOPHILS PERCENT AUTO 0.6 % (0.0-6.0); HEMATOCRIT 43.3 % (37.0-47.0); HEMOGLOBIN 14.3 gm/dl (12.0-16.0); IMMATURE GRAN ABSOLUTE AUTO 0.75 K/mm3 (0.00-0.05); IMMATURE GRAN PERCENT AUTO 3.2 % (0.0-0.4); LYMPHOCYTES ABSOLUTE AUTO 2.4 K/mm3 (1.0-4.8); MEAN CORPUSCULAR HEMOGLOBIN 27.2 pg (28.0-32.0); MEAN CORPUSCULAR VOLUME 82.5 fl (83.0-99.0); MEAN PLATELET VOLUME 11.4 fl (9.4-12.3); MONOCYTES ABSOLUTE AUTO 1.7 K/mm3 (0.0-0.8); MONOCYTES PERCENT AUTO 7.1 % (0.0-8.0); NEUTROPHILS ABSOLUTE AUTO 18.6 K/mm3 (1.8-7.7); NEUTROPHILS PERCENT AUTO 78.7 % (41.0-71.0); PLATELET COUNT,PLT 266 K/mm3 (150-400); RED BLOOD CELL COUNT 5.25 M/mm3 (4.10-5.30); WHITE BLOOD CELL COUNT,WBC 23.62 K/mm3 (3.9-11.3)
[2024-08-28 11:37] LABS: SLIDE REVIEW ABNORMAL SMEAR
[2024-08-29] MEDS: Enoxaparin 40 MG/0.4 ML Syringe SUBCUT SCH (08:10)
[2024-08-31 04:42] LABS: ANA BY ELISA, IGG W/RFX TO IFA None Detected (None Detected)
== END 2024-08-30 09:40 | DRG 948 ==
LOC: JD.ED 10:25 → JD.MS 14:58
PROVIDERS: ADMIT Student in an Organized Health Care Education/Training Program; ATTEND Family Medicine
DX: R53.81 Other malaise (principal); N30.00 Acute cystitis without hematuria; I10 Essential (primary) hypertension; Z66 Do not resuscitate; E53.8 Deficiency of other specified B group vitamins; E11.9 Type 2 diabetes mellitus without complications; E03.9 Hypothyroidism, unspecified; Z16.12 Extended spectrum beta lactamase (ESBL) resistance; H54.7 Unspecified visual loss; I25.10 Atherosclerotic heart disease of native coronary artery without angina pectoris; E78.00 Pure hypercholesterolemia, unspecified; R53.1 Weakness; I11.9 Hypertensive heart disease without heart failure; J44.9 Chronic obstructive pulmonary disease, unspecified; K59.09 Other constipation; M54.9 Dorsalgia, unspecified; M54.2 Cervicalgia; G89.29 Other chronic pain; E11.621 Type 2 diabetes mellitus with foot ulcer; K21.9 Gastro-esophageal reflux disease without esophagitis; F03.90 Unspecified dementia, unspecified severity, without behavioral disturbance, psychotic disturbance, mood disturbance, and anxiety; M19.90 Unspecified osteoarthritis, unspecified site; E11.40 Type 2 diabetes mellitus with diabetic neuropathy, unspecified; E55.9 Vitamin D deficiency, unspecified; Z96.649 Presence of unspecified artificial hip joint; Z96.659 Presence of unspecified artificial knee joint; Z79.899 Other long term (current) drug therapy; Z87.891 Personal history of nicotine dependence; Z86.16 Personal history of COVID-19; Z98.49 Cataract extraction status, unspecified eye; Z98.890 Other specified postprocedural states; Z90.710 Acquired absence of both cervix and uterus; Z88.8 Allergy status to other drugs, medicaments and biological substances; Z79.890 Hormone replacement therapy; Z79.84 Long term (current) use of oral hypoglycemic drugs; Z87.440 Personal history of urinary (tract) infections
CPT/HCPCS: 36415; 80053; 81001; 82550; 85025; 93005; 96374; 99285; C1758; J1335; 82306; 82607; 82746; 82947; 83735; 84100; 85652; 86038; 87040; 87641; 93010; 94640; 94760; 94761; 97110-GP; 97116-GP; 97162-GP; 97166-GO; 97530-GO; 97530-GP; 99284; A9270-GY; J1650; J1815; J7120; J7512; U0002

== ENCOUNTER 2025-02-07 10:31 | Inpatient (IN) | payer MEDICARE, BC ==
[2025-02-07 12:38] LABS: BASOPHILS ABSOLUTE AUTO 0.1 K/mm3 (0.0-0.2); BASOPHILS PERCENT AUTO 0.4 % (0.0-1.0); EOSINOPHILS ABSOLUTE AUTO 0.2 K/mm3 (0.0-0.4); EOSINOPHILS PERCENT AUTO 1.1 % (0.0-6.0); IMMATURE GRAN ABSOLUTE AUTO 0.20 K/mm3 (0.00-0.05); IMMATURE GRAN PERCENT AUTO 1.1 % (0.0-0.4); LYMPHOCYTES ABSOLUTE AUTO 0.8 K/mm3 (1.0-4.8); LYMPHOCYTES PERCENT AUTO 4.4 % (24.0-44.0); MEAN PLATELET VOLUME 10.3 fl (9.4-12.3); MONOCYTES ABSOLUTE AUTO 1.2 K/mm3 (0.0-0.8); MONOCYTES PERCENT AUTO 6.5 % (0.0-8.0); NEUTROPHILS ABSOLUTE AUTO 16.1 K/mm3 (1.8-7.7); NEUTROPHILS PERCENT AUTO 86.5 % (41.0-71.0); NRBC ABSOLUTE 0.00 (0.00-0.02); NRBC PERCENT 0.0 % (0.0-0.2); RED BLOOD CELL COUNT 5.53 M/mm3 (4.10-5.30); WHITE BLOOD CELL COUNT,WBC 18.54 K/mm3 (3.9-11.3)
[2025-02-07 12:43] LABS: PLATELET COUNT,PLT 397 K/mm3 (150-400)
[2025-02-07 13:00] LABS: A/G RATIO 0.7 (1-2); ALANINE AMINOTRANSFERASE,ALT 15.0 U/L (14-59); ASPARTATE AMNIOTRANSFERASE,AST 13.0 U/L (15-37); BILIRUBIN TOTAL 0.9 mg/dL (0.2-1.0); BLOOD UREA NITROGEN,BUN 17.0 mg/dL (7-18); CARBON DIOXIDE,CO2 24.0 mEq/L (21-32); CHLORIDE,CL 99.0 mEq/L (98-107); CREATINE KINASE,CK 16.0 U/L (26-192); CREATININE 0.9 mg/dL (0.55-1.02); EST CRCL DRUG DOSING (CG) 43.05 mL/min; ESTIMATED GFR 65.0 mL/min (>60); GLUCOSE RANDOM 124.0 mg/dL (70-99); POTASSIUM,K 4.4 mEq/L (3.5-5.1); PROTEIN TOTAL,TP 7.1 g/dl (6.4-8.2); SODIUM,NA 135.0 mEq/L (136-145)
[2025-02-07 13:01] LABS: TROPONIN I HIGH SENSITIVITY 577.0 pg/mL (<=51)
[2025-02-07] MEDS ORDERED: Naloxone 0.4 MG/ML SDV IVPUSH PRN (13:11)
[2025-02-08] MEDS: Acetaminophen/HYDROcodone 325-5 MG Tab PO ONE (00:35)
[2025-02-08] MEDS ORDERED: cefTRIAXone 1 GM, Lidocaine 1% 2.1 ML IM ONE (07:43)
[2025-02-08] MEDS: cefTRIAXone 1 GM, Lidocaine 1% 2.1 ML IM ONE (08:05)
[2025-02-08 08:22] LABS: BASOPHILS ABSOLUTE AUTO 0.1 K/mm3 (0.0-0.2); BASOPHILS PERCENT AUTO 0.3 % (0.0-1.0); EOSINOPHILS ABSOLUTE AUTO 0.0 K/mm3 (0.0-0.4); EOSINOPHILS PERCENT AUTO 0.1 % (0.0-6.0); IMMATURE GRAN ABSOLUTE AUTO 0.24 K/mm3 (0.00-0.05); IMMATURE GRAN PERCENT AUTO 0.9 % (0.0-0.4); LYMPHOCYTES ABSOLUTE AUTO 0.9 K/mm3 (1.0-4.8); LYMPHOCYTES PERCENT AUTO 3.4 % (24.0-44.0); MEAN PLATELET VOLUME 10.1 fl (9.4-12.3); MONOCYTES ABSOLUTE AUTO 2.0 K/mm3 (0.0-0.8); MONOCYTES PERCENT AUTO 7.7 % (0.0-8.0); NEUTROPHILS ABSOLUTE AUTO 23.1 K/mm3 (1.8-7.7); NEUTROPHILS PERCENT AUTO 87.6 % (41.0-71.0); NRBC ABSOLUTE 0.00 (0.00-0.02); NRBC PERCENT 0.0 % (0.0-0.2); PLATELET COUNT,PLT 383 K/mm3 (150-400); RED BLOOD CELL COUNT 5.38 M/mm3 (4.10-5.30); WHITE BLOOD CELL COUNT,WBC 26.36 K/mm3 (3.9-11.3)
[2025-02-08 08:34] LABS: APPEARANCE,URINE CLEAR (Clear); GLUCOSE,URINE NEGATIVE (Negative); OCCULT BLOOD,URINE NEGATIVE (Negative)
[2025-02-08 08:49] LABS: A/G RATIO 0.6 (1-2); ASPARTATE AMNIOTRANSFERASE,AST 12.0 U/L (15-37); BILIRUBIN TOTAL 1.0 mg/dL (0.2-1.0); BLOOD UREA NITROGEN,BUN 22.0 mg/dL (7-18); CARBON DIOXIDE,CO2 22.0 mEq/L (21-32); CHLORIDE,CL 99.0 mEq/L (98-107); CREATINE KINASE,CK 34.0 U/L (26-192); CREATININE 1.0 mg/dL (0.55-1.02); EST CRCL DRUG DOSING (CG) 38.75 mL/min; ESTIMATED GFR 57.0 mL/min (>60); GLUCOSE RANDOM 154.0 mg/dL (70-99); POTASSIUM,K 3.8 mEq/L (3.5-5.1); PROTEIN TOTAL,TP 6.7 g/dl (6.4-8.2); SODIUM,NA 132.0 mEq/L (136-145)
[2025-02-08 09:00] LABS: TROPONIN I HIGH SENSITIVITY 242.0 pg/mL (<=51)
[2025-02-08 09:16] LABS: ALANINE AMINOTRANSFERASE,ALT 10.0 U/L (14-59)
[2025-02-08 09:24] LABS: SQUAMOUS EPITHELIAL CELLS,UR 0-5 /hpf (0-5)
[2025-02-08] MEDS: Magnesium Sulf/Wat 4 GM/50 mL 4 GM in Premix Bag 1 BAG IV ONE (11:08)
[2025-02-08] MEDS ORDERED: Non-Formulary Medication 1 Each (Triamcinolone Acetonide 15 GM Tube) TOP PRN ×2 (14:14→14:22)
[2025-02-08] MEDS ORDERED: NYSTATIN TOP PRN (14:14)
[2025-02-08] MEDS ORDERED: Nystatin Crm 30 GM Tube TOP PRN (14:21)
[2025-02-08] MEDS ORDERED: Ondansetron 4 MG/2 ML SDV IV PRN (15:11)
[2025-02-08] MEDS: Insulin Lispro 100 Unit/ML 3 ML KwikPen SUBCUT SCH (17:40)
[2025-02-08] MEDS ORDERED: Non-Formulary Medication 1 Each (Methenamine Hippurate 1 GM Tablet) PO SCH (21:00)
[2025-02-09 06:21] LABS: BASOPHILS ABSOLUTE AUTO 0.1 K/mm3 (0.0-0.2); BASOPHILS PERCENT AUTO 0.2 % (0.0-1.0); EOSINOPHILS ABSOLUTE AUTO 0.5 K/mm3 (0.0-0.4); EOSINOPHILS PERCENT AUTO 2.3 % (0.0-6.0); IMMATURE GRAN ABSOLUTE AUTO 0.20 K/mm3 (0.00-0.05); IMMATURE GRAN PERCENT AUTO 0.9 % (0.0-0.4); LYMPHOCYTES ABSOLUTE AUTO 1.1 K/mm3 (1.0-4.8); LYMPHOCYTES PERCENT AUTO 4.9 % (24.0-44.0); MEAN PLATELET VOLUME 10.1 fl (9.4-12.3); MONOCYTES ABSOLUTE AUTO 1.7 K/mm3 (0.0-0.8); MONOCYTES PERCENT AUTO 7.7 % (0.0-8.0); NEUTROPHILS ABSOLUTE AUTO 18.8 K/mm3 (1.8-7.7); NEUTROPHILS PERCENT AUTO 84.0 % (41.0-71.0); NRBC ABSOLUTE 0.00 (0.00-0.02); NRBC PERCENT 0.0 % (0.0-0.2); PLATELET COUNT,PLT 387 K/mm3 (150-400); RED BLOOD CELL COUNT 5.01 M/mm3 (4.10-5.30); WHITE BLOOD CELL COUNT,WBC 22.34 K/mm3 (3.9-11.3)
[2025-02-09 06:41] LABS: A/G RATIO 0.5 (1-2); ALANINE AMINOTRANSFERASE,ALT 11 U/L (14-59); ASPARTATE AMNIOTRANSFERASE,AST 13 U/L (15-37); BILIRUBIN TOTAL 0.8 mg/dL (0.2-1.0); BLOOD UREA NITROGEN,BUN 16 mg/dL (7-18); CARBON DIOXIDE,CO2 25 mEq/L (21-32); CHLORIDE,CL 98 mEq/L (98-107); CREATININE 0.7 mg/dL (0.55-1.02); EST CRCL DRUG DOSING (CG) 55.35 mL/min; ESTIMATED GFR 87 mL/min (>60); GLUCOSE RANDOM 116 mg/dL (70-99); PHOSPHORUS 2.5 mg/dL (2.6-4.7); POTASSIUM,K 3.3 mEq/L (3.5-5.1); PROTEIN TOTAL,TP 6.4 g/dl (6.4-8.2); SODIUM,NA 133 mEq/L (136-145)
[2025-02-09] MEDS: Potassium Chloride 20 MEQ Tab.ER PO ONE (17:09)
[2025-02-09] MEDS: Phosphorus #1 250 MG Tab PO ONE (17:10)
[2025-02-09] MEDS: Non-Formulary Medication 1 Each (Methenamine Hippurate 1 GM Tablet) PO SCH (19:52)
[2025-02-10 05:48] LABS: BASOPHILS ABSOLUTE AUTO 0.1 K/mm3 (0.0-0.2); BASOPHILS PERCENT AUTO 0.4 % (0.0-1.0); EOSINOPHILS ABSOLUTE AUTO 0.5 K/mm3 (0.0-0.4); EOSINOPHILS PERCENT AUTO 2.6 % (0.0-6.0); IMMATURE GRAN ABSOLUTE AUTO 0.24 K/mm3 (0.00-0.05); IMMATURE GRAN PERCENT AUTO 1.2 % (0.0-0.4); LYMPHOCYTES ABSOLUTE AUTO 1.4 K/mm3 (1.0-4.8); LYMPHOCYTES PERCENT AUTO 7.1 % (24.0-44.0); MEAN PLATELET VOLUME 9.8 fl (9.4-12.3); MONOCYTES ABSOLUTE AUTO 1.6 K/mm3 (0.0-0.8); MONOCYTES PERCENT AUTO 8.0 % (0.0-8.0); NEUTROPHILS ABSOLUTE AUTO 15.6 K/mm3 (1.8-7.7); NEUTROPHILS PERCENT AUTO 80.7 % (41.0-71.0); NRBC ABSOLUTE 0.00 (0.00-0.02); NRBC PERCENT 0.0 % (0.0-0.2); PLATELET COUNT,PLT 375 K/mm3 (150-400); RED BLOOD CELL COUNT 5.04 M/mm3 (4.10-5.30); WHITE BLOOD CELL COUNT,WBC 19.29 K/mm3 (3.9-11.3)
[2025-02-10 06:08] LABS: BLOOD UREA NITROGEN,BUN 15 mg/dL (7-18); CARBON DIOXIDE,CO2 26 mEq/L (21-32); CHLORIDE,CL 101 mEq/L (98-107); CREATININE 0.8 mg/dL (0.55-1.02); EST CRCL DRUG DOSING (CG) 48.43 mL/min; ESTIMATED GFR 74 mL/min (>60); GLUCOSE RANDOM 119 mg/dL (70-99); PHOSPHORUS 3.0 mg/dL (2.6-4.7); SODIUM,NA 134 mEq/L (136-145)
[2025-02-10 06:43] LABS: POTASSIUM,K 5.2 mEq/L (3.5-5.1)
[2025-02-10] MEDS ORDERED: 50% Dextrose in Water 50 ML Syringe IVPUSH ONE (08:36)
[2025-02-10] MEDS ORDERED: Insulin Regular, Human 100 Units/ML 10 ML Vial IV ONE (08:36)
[2025-02-10 09:15] LABS: BLOOD UREA NITROGEN,BUN 15.0 mg/dL (7-18); CARBON DIOXIDE,CO2 25.0 mEq/L (21-32); CHLORIDE,CL 98.0 mEq/L (98-107); CREATININE 0.8 mg/dL (0.55-1.02); EST CRCL DRUG DOSING (CG) 48.43 mL/min; ESTIMATED GFR 74.0 mL/min (>60); GLUCOSE RANDOM 189.0 mg/dL (70-99); SODIUM,NA 131.0 mEq/L (136-145)
[2025-02-10 09:22] LABS: POTASSIUM,K 4.3 mEq/L (3.5-5.1)
== END 2025-02-10 14:00 | disposition home or self-care (01) | DRG 872 ==
LOC: JD.ED 10:31 → JD.MS 02-08 14:13
PROVIDERS: ADMIT Student in an Organized Health Care Education/Training Program; ATTEND Student in an Organized Health Care Education/Training Program
PROC: 3E03329 Introduction of Other Anti-infective into Peripheral Vein, Percutaneous Approach (ICD-10-PCS; principal; 2025-02-07)
PROC: 05HY33Z Insertion of Infusion Device into Upper Vein, Percutaneous Approach (ICD-10-PCS; 2025-02-08)
DX: A41.9 Sepsis, unspecified organism (principal); N30.00 Acute cystitis without hematuria; I50.32 Chronic diastolic (congestive) heart failure; F01.B4 Vascular dementia, moderate, with anxiety; I13.0 Hypertensive heart and chronic kidney disease with heart failure and stage 1 through stage 4 chronic kidney disease, or unspecified chronic kidney disease; Z66 Do not resuscitate; I25.10 Atherosclerotic heart disease of native coronary artery without angina pectoris; J44.9 Chronic obstructive pulmonary disease, unspecified; H54.7 Unspecified visual loss; E78.00 Pure hypercholesterolemia, unspecified; K59.09 Other constipation; M54.9 Dorsalgia, unspecified; G89.29 Other chronic pain; M54.2 Cervicalgia; M19.90 Unspecified osteoarthritis, unspecified site; E03.9 Hypothyroidism, unspecified; E86.0 Dehydration; N18.31 Chronic kidney disease, stage 3a; E11.22 Type 2 diabetes mellitus with diabetic chronic kidney disease; R79.89 Other specified abnormal findings of blood chemistry; E83.42 Hypomagnesemia; E11.42 Type 2 diabetes mellitus with diabetic polyneuropathy; I65.23 Occlusion and stenosis of bilateral carotid arteries; B96.1 Klebsiella pneumoniae [K. pneumoniae] as the cause of diseases classified elsewhere; K21.9 Gastro-esophageal reflux disease without esophagitis; Z96.649 Presence of unspecified artificial hip joint; Z96.659 Presence of unspecified artificial knee joint; Z87.891 Personal history of nicotine dependence; Z88.8 Allergy status to other drugs, medicaments and biological substances; Z86.16 Personal history of COVID-19; Z90.710 Acquired absence of both cervix and uterus; Z98.890 Other specified postprocedural states; Z98.49 Cataract extraction status, unspecified eye; Z79.84 Long term (current) use of oral hypoglycemic drugs; Z79.899 Other long term (current) drug therapy; Z86.0100 Personal history of colon polyps, unspecified
CPT/HCPCS: 36415 ×2; 51701; 71045; 80053 ×2; 81001; 82550 ×2; 83690; 83735 ×2; 83880; 84484 ×4; 85025 ×2; 87040 ×2; 93005 ×3; 94640; 96361; 96365; 96372; 96375; 99285; A9270 ×4; C1758; J0696 ×2; J2003; J2270; J3475; J7030; 36410; 80048; 82947; 84100; 86140; 93010; 94667; 94668; 94760; 94761; 99100; 99223; 99233; 99238; J1650; J2543

== ENCOUNTER 2025-02-12 09:17 | Inpatient (IN) | payer MEDICARE, BC ==
[2025-02-12] MEDS ORDERED: Sodium Chloride 0.9% 10 ML Syringe FLUSH PRN (09:46)
[2025-02-12 10:01] LABS: MEAN PLATELET VOLUME 9.6 fl (9.4-12.3); NRBC ABSOLUTE 0.00 (0.00-0.02); NRBC PERCENT 0.0 % (0.0-0.2); PLATELET COUNT,PLT 435 K/mm3 (150-400); RED BLOOD CELL COUNT 5.08 M/mm3 (4.10-5.30); WHITE BLOOD CELL COUNT,WBC 21.78 K/mm3 (3.9-11.3)
[2025-02-12 10:21] LABS: INR 1.03
[2025-02-12 10:29] LABS: A/G RATIO 0.5 (1-2); ALANINE AMINOTRANSFERASE,ALT 25.0 U/L (14-59); ASPARTATE AMNIOTRANSFERASE,AST 32.0 U/L (15-37); BILIRUBIN TOTAL 0.8 mg/dL (0.2-1.0); BLOOD UREA NITROGEN,BUN 17.0 mg/dL (7-18); CARBON DIOXIDE,CO2 22.0 mEq/L (21-32); CHLORIDE,CL 98.0 mEq/L (98-107); CREATININE 1.0 mg/dL (0.55-1.02); EST CRCL DRUG DOSING (CG) 40.38 mL/min; ESTIMATED GFR 57.0 mL/min (>60); GLUCOSE RANDOM 151.0 mg/dL (70-99); POTASSIUM,K 4.2 mEq/L (3.5-5.1); PROTEIN TOTAL,TP 7.0 g/dl (6.4-8.2); SODIUM,NA 132.0 mEq/L (136-145)
[2025-02-12 10:30] LABS: TROPONIN I HIGH SENSITIVITY 349.0 pg/mL (<=51)
[2025-02-12 10:42] LABS: LACTIC ACID 2.0 mmol/L (0.4-2.0)
[2025-02-12 12:28] LABS: BAND PERCENT MAN 0 % (0-10); BASOPHILS PERCENT MAN 0 (0.1-1.2); EOSINOPHILS PERCENT MAN 1 % (0.7-5.8); LYMPHOCYTES % ATYPICAL MANUAL 0 %; LYMPHOCYTES PERCENT MAN 3 % (20-40); MONOCYTES PERCENT MAN 12 % (2-10); MYELOCYTE PERCENT MAN 2
[2025-02-12 12:32] LABS: PLATELET COUNT ESTIMATE INCREASED
[2025-02-12 12:44] LABS: APPEARANCE,URINE CLEAR (Clear); GLUCOSE,URINE NEGATIVE (Negative); OCCULT BLOOD,URINE TRACE-LYSED (Negative)
[2025-02-12 12:53] LABS: SQUAMOUS EPITHELIAL CELLS,UR 0-5 /hpf (0-5)
[2025-02-12] MEDS: Sodium Chloride 0.9% 10 ML Syringe FLUSH ONE (13:27)
[2025-02-12] MEDS: Iopamidol 612 MG/ML 100 ML Bottle IVPUSH ONE (13:27)
[2025-02-12] MEDS ORDERED: Non-Formulary Medication 1 Each (Albuterol 8.5 GM Hfa.Aer.Ad) INH PRN (14:27)
[2025-02-12] MEDS: Levofloxacin/Dextrose 5%-Water 750 MG in Premix Bag 1 BAG IV SCH (14:34)
[2025-02-12] MEDS: Ondansetron 4 MG/2 ML SDV IV PRN (16:14)
[2025-02-12] MEDS: Insulin Lispro 100 Unit/ML 3 ML KwikPen SUBCUT SCH (17:34)
[2025-02-13 07:08] LABS: BASOPHILS ABSOLUTE AUTO 0.0 K/mm3 (0.0-0.2); BASOPHILS PERCENT AUTO 0.2 % (0.0-1.0); EOSINOPHILS ABSOLUTE AUTO 0.8 K/mm3 (0.0-0.4); EOSINOPHILS PERCENT AUTO 4.9 % (0.0-6.0); IMMATURE GRAN ABSOLUTE AUTO 1.31 K/mm3 (0.00-0.05); IMMATURE GRAN PERCENT AUTO 7.7 % (0.0-0.4); LYMPHOCYTES ABSOLUTE AUTO 1.3 K/mm3 (1.0-4.8); LYMPHOCYTES PERCENT AUTO 7.3 % (24.0-44.0); MEAN PLATELET VOLUME 9.5 fl (9.4-12.3); MONOCYTES ABSOLUTE AUTO 1.7 K/mm3 (0.0-0.8); MONOCYTES PERCENT AUTO 9.7 % (0.0-8.0); NEUTROPHILS ABSOLUTE AUTO 12.0 K/mm3 (1.8-7.7); NEUTROPHILS PERCENT AUTO 70.2 % (41.0-71.0); NRBC ABSOLUTE 0.00 (0.00-0.02); NRBC PERCENT 0.0 % (0.0-0.2); RED BLOOD CELL COUNT 4.72 M/mm3 (4.10-5.30); WHITE BLOOD CELL COUNT,WBC 17.11 K/mm3 (3.9-11.3)
[2025-02-13 07:11] LABS: PLATELET COUNT,PLT 330 K/mm3 (150-400)
[2025-02-13 07:28] LABS: A/G RATIO 0.5 (1-2); ALANINE AMINOTRANSFERASE,ALT 25.0 U/L (14-59); ASPARTATE AMNIOTRANSFERASE,AST 27.0 U/L (15-37); BILIRUBIN TOTAL 0.6 mg/dL (0.2-1.0); BLOOD UREA NITROGEN,BUN 10.0 mg/dL (7-18); CARBON DIOXIDE,CO2 25.0 mEq/L (21-32); CHLORIDE,CL 99.0 mEq/L (98-107); CREATININE 0.7 mg/dL (0.55-1.02); EST CRCL DRUG DOSING (CG) 48.37 mL/min; ESTIMATED GFR 87.0 mL/min (>60); GLUCOSE RANDOM 115.0 mg/dL (70-99); POTASSIUM,K 3.7 mEq/L (3.5-5.1); PROTEIN TOTAL,TP 6.4 g/dl (6.4-8.2); SODIUM,NA 134.0 mEq/L (136-145)
[2025-02-14 06:05] LABS: BASOPHILS ABSOLUTE AUTO 0.0 K/mm3 (0.0-0.2); BASOPHILS PERCENT AUTO 0.2 % (0.0-1.0); EOSINOPHILS ABSOLUTE AUTO 1.0 K/mm3 (0.0-0.4); EOSINOPHILS PERCENT AUTO 5.9 % (0.0-6.0); IMMATURE GRAN ABSOLUTE AUTO 1.75 K/mm3 (0.00-0.05); IMMATURE GRAN PERCENT AUTO 10.5 % (0.0-0.4); LYMPHOCYTES ABSOLUTE AUTO 1.3 K/mm3 (1.0-4.8); LYMPHOCYTES PERCENT AUTO 7.8 % (24.0-44.0); MEAN PLATELET VOLUME 10.0 fl (9.4-12.3); MONOCYTES ABSOLUTE AUTO 1.7 K/mm3 (0.0-0.8); MONOCYTES PERCENT AUTO 10.3 % (0.0-8.0); NEUTROPHILS ABSOLUTE AUTO 10.9 K/mm3 (1.8-7.7); NEUTROPHILS PERCENT AUTO 65.3 % (41.0-71.0); NRBC ABSOLUTE 0.00 (0.00-0.02); NRBC PERCENT 0.0 % (0.0-0.2); PLATELET COUNT,PLT 317 K/mm3 (150-400); RED BLOOD CELL COUNT 4.57 M/mm3 (4.10-5.30); WHITE BLOOD CELL COUNT,WBC 16.64 K/mm3 (3.9-11.3)
[2025-02-14 06:30] LABS: A/G RATIO 0.5 (1-2); ALANINE AMINOTRANSFERASE,ALT 26.0 U/L (14-59); ASPARTATE AMNIOTRANSFERASE,AST 25.0 U/L (15-37); BILIRUBIN TOTAL 0.6 mg/dL (0.2-1.0); BLOOD UREA NITROGEN,BUN 8.0 mg/dL (7-18); CARBON DIOXIDE,CO2 28.0 mEq/L (21-32); CHLORIDE,CL 100.0 mEq/L (98-107); CREATININE 0.8 mg/dL (0.55-1.02); EST CRCL DRUG DOSING (CG) 42.32 mL/min; ESTIMATED GFR 74.0 mL/min (>60); GLUCOSE RANDOM 108.0 mg/dL (70-99); POTASSIUM,K 3.6 mEq/L (3.5-5.1); PROTEIN TOTAL,TP 6.1 g/dl (6.4-8.2); SODIUM,NA 135.0 mEq/L (136-145)
[2025-02-15 05:37] LABS: BASOPHILS ABSOLUTE AUTO 0.0 K/mm3 (0.0-0.2); BASOPHILS PERCENT AUTO 0.2 % (0.0-1.0); EOSINOPHILS ABSOLUTE AUTO 0.8 K/mm3 (0.0-0.4); EOSINOPHILS PERCENT AUTO 4.1 % (0.0-6.0); IMMATURE GRAN ABSOLUTE AUTO 2.35 K/mm3 (0.00-0.05); IMMATURE GRAN PERCENT AUTO 12.2 % (0.0-0.4); LYMPHOCYTES ABSOLUTE AUTO 1.9 K/mm3 (1.0-4.8); LYMPHOCYTES PERCENT AUTO 9.8 % (24.0-44.0); MEAN PLATELET VOLUME 9.9 fl (9.4-12.3); MONOCYTES ABSOLUTE AUTO 2.1 K/mm3 (0.0-0.8); MONOCYTES PERCENT AUTO 10.7 % (0.0-8.0); NEUTROPHILS ABSOLUTE AUTO 12.1 K/mm3 (1.8-7.7); NEUTROPHILS PERCENT AUTO 63.0 % (41.0-71.0); NRBC ABSOLUTE 0.00 (0.00-0.02); NRBC PERCENT 0.0 % (0.0-0.2); PLATELET COUNT,PLT 285 K/mm3 (150-400); RED BLOOD CELL COUNT 4.38 M/mm3 (4.10-5.30); WHITE BLOOD CELL COUNT,WBC 19.23 K/mm3 (3.9-11.3)
[2025-02-15 06:18] LABS: A/G RATIO 0.5 (1-2); ALANINE AMINOTRANSFERASE,ALT 38.0 U/L (14-59); ASPARTATE AMNIOTRANSFERASE,AST 45.0 U/L (15-37); BILIRUBIN TOTAL 0.5 mg/dL (0.2-1.0); BLOOD UREA NITROGEN,BUN 11.0 mg/dL (7-18); CARBON DIOXIDE,CO2 26.0 mEq/L (21-32); CHLORIDE,CL 97.0 mEq/L (98-107); CREATININE 0.7 mg/dL (0.55-1.02); EST CRCL DRUG DOSING (CG) 48.37 mL/min; ESTIMATED GFR 87.0 mL/min (>60); GLUCOSE RANDOM 125.0 mg/dL (70-99); POTASSIUM,K 3.6 mEq/L (3.5-5.1); PROTEIN TOTAL,TP 5.8 g/dl (6.4-8.2); SODIUM,NA 131.0 mEq/L (136-145)
[2025-02-15] MEDS: metroNIDAZOLE/Normal Saline 500 MG in Premix Bag 1 BAG IV SCH (13:24)
[2025-02-16 05:54] LABS: BASOPHILS ABSOLUTE AUTO 0.0 K/mm3 (0.0-0.2); BASOPHILS PERCENT AUTO 0.2 % (0.0-1.0); EOSINOPHILS ABSOLUTE AUTO 0.6 K/mm3 (0.0-0.4); EOSINOPHILS PERCENT AUTO 3.8 % (0.0-6.0); IMMATURE GRAN ABSOLUTE AUTO 1.57 K/mm3 (0.00-0.05); IMMATURE GRAN PERCENT AUTO 9.3 % (0.0-0.4); LYMPHOCYTES ABSOLUTE AUTO 1.2 K/mm3 (1.0-4.8); LYMPHOCYTES PERCENT AUTO 7.1 % (24.0-44.0); MEAN PLATELET VOLUME 10.0 fl (9.4-12.3); MONOCYTES ABSOLUTE AUTO 1.6 K/mm3 (0.0-0.8); MONOCYTES PERCENT AUTO 9.7 % (0.0-8.0); NEUTROPHILS ABSOLUTE AUTO 11.8 K/mm3 (1.8-7.7); NEUTROPHILS PERCENT AUTO 69.9 % (41.0-71.0); NRBC ABSOLUTE 0.00 (0.00-0.02); NRBC PERCENT 0.0 % (0.0-0.2); PLATELET COUNT,PLT 263 K/mm3 (150-400); RED BLOOD CELL COUNT 4.44 M/mm3 (4.10-5.30); WHITE BLOOD CELL COUNT,WBC 16.87 K/mm3 (3.9-11.3)
[2025-02-16 06:13] LABS: A/G RATIO 0.4 (1-2); ALANINE AMINOTRANSFERASE,ALT 31.0 U/L (14-59); ASPARTATE AMNIOTRANSFERASE,AST 25.0 U/L (15-37); BILIRUBIN TOTAL 0.5 mg/dL (0.2-1.0); BLOOD UREA NITROGEN,BUN 9.0 mg/dL (7-18); CARBON DIOXIDE,CO2 27.0 mEq/L (21-32); CHLORIDE,CL 98.0 mEq/L (98-107); CREATININE 0.8 mg/dL (0.55-1.02); EST CRCL DRUG DOSING (CG) 42.32 mL/min; ESTIMATED GFR 74.0 mL/min (>60); GLUCOSE RANDOM 139.0 mg/dL (70-99); POTASSIUM,K 4.0 mEq/L (3.5-5.1); PROTEIN TOTAL,TP 6.0 g/dl (6.4-8.2); SODIUM,NA 132.0 mEq/L (136-145)
== END 2025-02-17 09:30 | DRG 177 ==
LOC: JD.ED 09:17 → JD.MS 14:12
PROVIDERS: ADMIT Family Medicine; ATTEND Family Medicine
DX: J86.9 Pyothorax without fistula (principal); J18.9 Pneumonia, unspecified organism; R79.89 Other specified abnormal findings of blood chemistry; N30.00 Acute cystitis without hematuria; I13.0 Hypertensive heart and chronic kidney disease with heart failure and stage 1 through stage 4 chronic kidney disease, or unspecified chronic kidney disease; E11.9 Type 2 diabetes mellitus without complications; I50.32 Chronic diastolic (congestive) heart failure; Z88.8 Allergy status to other drugs, medicaments and biological substances; F01.B4 Vascular dementia, moderate, with anxiety; J90 Pleural effusion, not elsewhere classified; J98.11 Atelectasis; J44.0 Chronic obstructive pulmonary disease with (acute) lower respiratory infection; Z66 Do not resuscitate; R53.1 Weakness; H54.7 Unspecified visual loss; I25.10 Atherosclerotic heart disease of native coronary artery without angina pectoris; E78.00 Pure hypercholesterolemia, unspecified; K59.09 Other constipation; M54.9 Dorsalgia, unspecified; G89.29 Other chronic pain; M54.2 Cervicalgia; Z96.649 Presence of unspecified artificial hip joint; Z96.659 Presence of unspecified artificial knee joint; M19.90 Unspecified osteoarthritis, unspecified site; K21.9 Gastro-esophageal reflux disease without esophagitis; R26.2 Difficulty in walking, not elsewhere classified; N18.31 Chronic kidney disease, stage 3a; I65.23 Occlusion and stenosis of bilateral carotid arteries; E11.42 Type 2 diabetes mellitus with diabetic polyneuropathy; E11.22 Type 2 diabetes mellitus with diabetic chronic kidney disease; E03.9 Hypothyroidism, unspecified; Z86.16 Personal history of COVID-19; Z79.890 Hormone replacement therapy; Z79.52 Long term (current) use of systemic steroids; Z79.899 Other long term (current) drug therapy; Z79.84 Long term (current) use of oral hypoglycemic drugs; Z98.49 Cataract extraction status, unspecified eye; Z90.710 Acquired absence of both cervix and uterus; Z87.891 Personal history of nicotine dependence; Z88.6 Allergy status to analgesic agent
CPT/HCPCS: 36415; 71045; 74177; 80053; 81001; 83605; 84484; 85007; 85027; 85610; 86140; 87040 ×2; 93005; 96361; 96374; 99285; J0696; J7030 ×2; Q9967; 71250; 71250-26; 73110-26-RT; 73110-RT; 82947; 83735; 84550; 85025; 85652; 87426-QW; 93010; 94667; 94668; 94760; 94761; 97110-GP; 97162-GP; 97530-GP; 99223; 99232; 99233; 99239; A9270-GY; J1650; J1836; J1956; J2405